=== PATIENT | male | born 1970 | race Caucasian/White ===

== ENCOUNTER 2017-04-17 01:09 | Emergency (ER) | payer OTHER ==
[2017-04-17] MEDS ORDERED: HYDROmorphone INJ* 1 MG/ML CARPUJECT SYRINGE IM ONE ×2 (05:23→06:56)
[2017-04-17] MEDS ORDERED: Ketorolac INJ* 60 MG/2 ML VIAL IM ONE (05:25)
--- NOTE | 2017-04-17 08:01 | ED ---
Kuamr Zamora Rebecca, scribed for Kemal Wagoner MD on 04/17/17 at 0515 . Back Pain - HPI Summary HPI Summary: Pt is a 46 y/o M who presents to ED c/o acute on chronic back pain. Pain has been present for multiple years with frequent flareups. Most recent episode of symptoms began 4 days ago. Pain is in the bilateral lumbar back with radiation to the groin, buttock and bilateral LE. Pain is currently severe, ranked 9/10 and on triage it was 10/10. Sx aggravated by walking, alleviated by nothing. No new trauma. - History of Current Complaint Chief Complaint: EDBackInjuryPain Stated Complaint: BACK PAIN Time Seen by Provider: 04/17/17 05:02 Hx Obtained From: Patient Onset/Duration: Still Present, Worse Since - 4 days ago Onset/Duration: Still Present Back Pain Location: Is Discrete @ - Bilateral lumbar back, Radiates To - Buttock , groin and bilateral LE Severity Currently: Severe Pain Intensity: 10 Pain Scale Used: 0-10 Numeric Aggravating Symptom(s): Walking Alleviating Symptom(s): Nothing Associated Signs And Symptoms: Positive: Negative Related History: Previous Back Injury - Prior pain for multiple years - Allergies/Home Medications Allergies/Adverse Reactions: Allergies Allergy/AdvReac Type Severity Reaction Status Date / Time No Known Allergies Allergy Verified 04/17/17 01:14 PMH/Surg Hx/FS Hx/Imm Hx Endocrine/Hematology History: Denies: Hx Diabetes Cardiovascular History: Reports: Hx Hypercholesterolemia Denies: Hx Congestive Heart Failure, Hx Hypertension, Hx Pacemaker/ICD Respiratory History: Reports: Hx Asthma, Hx Sleep Apnea - Current CPAP user GI History: Reports: Hx Gastroesophageal Reflux Disease History: Reports: Hx Renal Disease - STONES Musculoskeletal History: Reports: Hx Back Problems - increasing back pain 2012 Sensory History: Denies: Hx Hearing Aid Psychiatric History: Denies: Hx Panic Disorder - Surgical History Surgery Procedure, Year, and Place: T&A; Appendectomy; Left Knee Surgery; Left Elbow; Throat (UPPP?); Septoplasty Infectious Disease History: No Infectious Disease History: Denies: Traveled Outside the [place] in Last 30 Days - Family History Known Family History: Positive: Cardiac Disease, Other - Lung CA - Social History Alcohol Use: Rare Substance Use Type: Reports: None, Prescribed Substance Use Comment - Amount & Last Used: percocet 5/325 q4h prn, Hx Tobacco Use: Yes Smoking Status (MU): Former Smoker Review of Systems Negative: Fever Positive: Other - Bilateral lumbar back pain with radiation to the buttock, groin and bilateral LE All Other Systems Reviewed And Are Negative: Yes Physical Exam - Summary Physical Exam Summary: General: well-appearing, no pain distress Skin: warm, color reflects adequate perfusion, dry Head: normal Eyes: EOMI, JACOBY ENT: normal Neck: supple, nontender Respiratory: CTA, breath sounds present Cardiovascular: RRR Abdomen: soft, nontender Bowel: present Musculoskeletal: strength/ROM intact, tender in the lumbar area and across at the level of L4-L5 laterally, good strength and good reflexes bilaterally Neurological: normal, sensory/motor intact, A&O x3 Psychological: affect/mood appropriate Triage Information Reviewed: Yes Vital Signs On Initial Exam: Initial Vitals Temp Pulse Resp BP Pulse Ox 98.2 F 79 16 139/81 98 04/17/17 01:11 04/17/17 01:11 04/17/17 01:11 04/17/17 01:11 04/17/17 01:11 Vital Signs Reviewed: Yes - [place] Coma Scale Coma Scale Total: 15 Diagnostics - Vital Signs Vital Signs Temp Pulse Resp BP Pulse Ox 04/17/17 03:13 98.3 F 69 18 128/66 99 04/17/17 01:14 98.2 F 79 16 139/81 98 04/17/17 01:11 98.2 F 79 16 139/81 98 - Laboratory Lab Statement: Any lab studies that have been ordered have been reviewed, and results considered in the medical decision making process. Back Pain Course/Dx - Course Course Of Treatment: NO NEUROLOGIC DEFICIT. IMPROVED IN ED. - Diagnoses Provider Diagnoses: Low back pain Discharge - Discharge Plan Condition: Stable Disposition: HOME Prescriptions: oxyCODONE/Acetamin 5/325 MG* [Percocet 5/325 TAB*] 1 tab PO Q4H PRN #20 tab MDD 6 PRN Reason: Pain Patient Education Materials: Acute Low Back Pain (ED), Chronic Back Pain (ED), Lower Back Exercises (ED) Referrals: Matthias Singer DO [Primary Care Provider] - Additional Instructions: FOLLOW UP WITH YOUR DOCTOR. RETURN TO THE EMERGENCY DEPARTMENT FOR ANY WORSENING OF YOUR CONDITION; WEAKNESS , NUMBNESS, PAIN, DIFFICULTY CONTROLLING BOWEL OR BLADDER OR QUESTIONS OR CONCERNS. The documentation as recorded by the Kumar couch Rebecca accurately reflects the service I personally performed and the decisions made by me, Kemal Wagoner MD.
[2017-04-17 08:21] VITALS: BP 152/83
== END 2017-04-17 08:19 | disposition home or self-care (01) ==
LOC: ED 01:09
DX: M54.5 Low back pain (principal); Z87.891 Personal history of nicotine dependence
CPT/HCPCS: 96372; 99282; J1170; J1885

== ENCOUNTER 2017-10-01 08:43 | Observation (INO) | payer OTHER ==
[2017-10-01] MEDS ORDERED: NS 0.9% 1000 ML* 1,000 ML IV ONE ×2 (08:55→15:39)
[2017-10-01] MEDS ORDERED: Meclizine TAB* 12.5 MG PO ONE (08:55)
[2017-10-01] MEDS ORDERED: Ondansetron ODT TAB* 4 MG PO ONE (08:55)
[2017-10-01] MEDS ORDERED: LORazepam INJ* 2 MG/ML 1 ML VIAL IV ONE (08:55)
[2017-10-01] MEDS ORDERED: Ondansetron INJ* 2 MG/ML VIAL IV ONE (09:03)
[2017-10-01] MEDS ORDERED: Ondansetron INJ* 2 MG/ML VIAL ONE (09:03)
--- NOTE | 2017-10-01 09:23 | RAD ---
INDICATION: Dizziness COMPARISON: None TECHNIQUE: An AP portable view obtained at 0900 hours is submitted. FINDINGS: Bones/Soft Tissues: There are no acute bony findings. Cardiomediastinal: The cardiomediastinal silhouette is normal. Lungs: There are no infiltrates. Pleura: There are no pleural effusions. Other: None IMPRESSION: NORMAL CHEST
--- NOTE | 2017-10-01 09:56 | RAD ---
Indication: Dizziness for 2 weeks increasing in severity. Now associated nausea. Comparison: No relevant prior exams available on the [facility] [place]. Technique: Noncontrast CT vertex of skull through foramen magnum. Report: The sulci, ventricles, and basal cisterns are normal for age. Variant persistent cavum septum pellucidum. Leavitt matter white matter differentiation is preserved without evidence for edema. No intra or extra axial hemorrhage, mass, or fluid collection detected. Unremarkable visualized orbital contents. Unremarkable calvarium and skull base. Unremarkable scalp. Air-fluid levels at the partially visualized paranasal sinuses with associated punctate gas bubbles on the LEFT consistent with acute sinusitis. There is mucosal thickening at the ethmoid sinuses and LEFT frontoethmoidal recess. Clear mastoid air spaces. IMPRESSION: 1. Negative unenhanced CT of the brain. 2. Stigmata of acute maxillary sinusitis.
[2017-10-01 09:59] LABS: ABS Basophils 0 10^3/ul (0-0.2); ABS Eosinophils 0.1 10^3/ul (0-0.6); ABS Lymphocytes 0.9 10^3/ul (1.0-4.8); ABS Monocytes 0.7 10^3/ul (0-0.8); ABS Neutrophils 7.7 10^3/ul (1.5-7.7); ABS Nucleated RBC 0 10^3/ul; Eosinophil % 0.9 % (0-6); Hematocrit 44 % (42-52); Hemoglobin 15.6 g/dl (14.0-18.0); Lymphocyte % 9.3 % (25-47); Mean Corpuscular HGB Conc 36 g/dl (31-36); Mean Corpuscular Hemoglobin 31 pg (27-31); Mean Corpuscular Volume 86 fL (80-94); Mean Platelet Volume 8 um3 (7.4-10.4); Nucleated Red Blood Cells % 0.1; Platelet Count 163 10^3/ul (150-450); Red Cell Distribution Width 14 % (10.5-15); White Blood Count 9.4 10^3/ul (3.5-10.8)
[2017-10-01 10:18] LABS: EGFR Non-African American 93.3 (>60)
[2017-10-01] MEDS ORDERED: Diazepam TAB(*) 5 MG PO ONE (11:22)
[2017-10-01 14:00] LABS: Urine Appearance Clear; Urine Blood Negative (Negative); Urine Color Yellow; Urine Ketones Negative (Negative); Urine Protein Negative (Negative); Urine Specific Gravity 1.012 (1.010-1.030); Urine Urobilinogen Negative (Negative)
--- NOTE | 2017-10-01 17:44 | RAD ---
Indication: Dizziness. Image sequences: Sagittal and axial T1, axial T2, FLAIR, diffusion and susceptibility weighted images of the brain were obtained. Ventricular structures are midline. No midline shift is noted. The extraction spaces are unremarkable. There is no evidence of intracranial mass or hemorrhage. No other high or low signal lesions are identified. No restriction of diffusion is identified. Mastoid air cells are grossly unremarkable with no abnormal fluid. Mucosal thickening of the maxillary sinus with air-fluid level in the left maxillary sinus as well is mucosal thickening of the ethmoid air cells is noted. IMPRESSION: Air-fluid level in the maxillary sinuses with mucosal thickening of the maxillary sinuses and ethmoid air cells. No restriction of diffusion is noted. No evidence of acute intracranial lesion is noted.
[2017-10-01] MEDS: NS 0.9% 1000 ML* 1,000 ML IV SCH (18:10)
[2017-10-01] MEDS ORDERED: Ondansetron ODT TAB* 4 MG PO PRN (18:50)
[2017-10-01] MEDS ORDERED: Acetaminophen TAB* 325 MG PO PRN (18:50)
[2017-10-01] MEDS: Meclizine TAB* 12.5 MG PO PRN (18:53)
[2017-10-01] MEDS: Heparin VIAL(*) 5000 UNITS/ML VIAL (FIVE THOUSAND) SUBCUT SCH (21:29)
--- NOTE | 2017-10-01 23:03 | HP ---
CC: Dr. Singer * [facility] MEDICINE HISTORY AND PHYSICAL: DATE OF ADMISSION: 10/01/17 PRIMARY CARE PHYSICIAN: Dr. Singer. ATTENDING PHYSICIAN: Melonie Dee MD * (dictation provided by Hillary Jennings NP) CHIEF COMPLAINT: Dizziness. HISTORY OF PRESENT ILLNESS: Mr. Duggan is a 47-year-old male with a past medical history of vertigo, hyperlipidemia, and hypothyroidism who presented to the hospital today with concern for dizziness. Mr. Duggan states that he had a history of BPPV back in 2011 that lasted about a week. Since that time, he has had no further problem with vertigo. About 2 weeks ago, he started to have vertigo again. It has been fairly constant and worsening, culminating and quite severe vertigo today and inability to ambulate. He reports that it is triggered by movement and improves when he lies still. With this, he has had some chest tightness pronounced over on the left side of his chest. This chest pain is not associated with activity. It seems to be constant. Nothing seems to make it better. It is a very mild discomfort that he is not able to fully describe. He also describes some nausea and vomiting. He has had some diarrhea , but this is a chronic problem. The patient also reports recent history of an anterior cervical fusion at C5-C6. He had only just returned to work after that on 08/29/17. 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 He reports therefore some neck pain, which is chronic. In the emergency room, Mr. Duggan was vertiginous throughout his stay. He had labs, which were remarkable only for a very mild lactic acidosis with lactic acid of 2.2. Troponin 0.00. CRP is 1.64. His vitals were stable. He is not febrile. He is not tachycardic. CT brain showed stigmata of acute maxillary sinusitis. Chest x-ray shows no acute abnormality. PAST MEDICAL HISTORY: 1. Hyperlipidemia. 2. Benign positional paroxysmal vertigo. 3. Hypothyroidism. MEDICATIONS: 1. Atorvastatin 20 mg p.o. daily. 2. Levothyroxine 25 mcg p.o. daily. 3. MegaRed. 4. [place]-3. 5. Krill oil 1 cap p.o. daily. 6. Lactobacillus 1 cap p.o. daily. ALLERGIES: No known drug allergies. FAMILY HISTORY: The patient reports that his brother had a heart attack at age 36 and of lung cancer at age 38. He was a heavy smoker. He reports that his mother had heart problems and she is alive. Dad had heart attack and in 1995. He reports that his father's parents both in their 60s of heart attack and that his mother's father had multiple strokes. SOCIAL HISTORY: The patient is a former smoker. He quit in 1997. He smoked for about 17 years. He drinks alcohol occasionally. He reports no drug use. He states that his would be the healthcare proxy. REVIEW OF SYSTEMS: A 14-point review of systems was completed with Mr. Duggan and all those not mentioned above were negative. PHYSICAL EXAMINATION GENERAL: Mr. Duggan is lying in the bed. He appears in no acute distress. His is at the bedside. VITAL SIGNS: Temperature 96.9, pulse rate 76, respiratory rate 14, O2 saturation 99% on room air, blood pressure 148/83. LUNGS: Clear to auscultation bilaterally with no accessory muscle use and good aeration. HEART: S1, S2. No murmur, rub, or gallop and regular. ABDOMEN: Soft, nontender with bowel sounds positive x4. EXTREMITIES: No cyanosis or edema. NEURO: He is alert. He is oriented x3. He reports very mild sensation of vertigo while lying flat. He has no nystagmus noted. He has ataxia with finger -to-nose and with [id number]-lp-flow. He seems to be weak, but there is generalized weakness. There is no facial asymmetry. Tongue is midline. SKIN: Intact. LABORATORY DATA/DIAGNOSTIC STUDIES: WBC 9.4, hemoglobin 15.6, hematocrit 44, platelet count 163. Sodium 140, potassium 4.0, chloride 107, serum bicarbonate 26, BUN 15, creatinine 0.87, glucose 121. Lactic acid 2.2. Magnesium 1.7. CRP 1.64. Urine shows no evidence of infection. Tox screen shows serum alcohol level less than 10. Again, CT brain shows acute maxillary sinusitis. Chest x- ray shows no acute abnormality. ASSESSMENT: Mr. Duggan is a 47-year-old male with a past medical history of benign positional paroxysmal vertigo as well as hypertension and hyperlipidemia who presents today to the hospital with concern for vertigo that has been worsening over the past 2 weeks. Our plans are for observation in the hospital for the followin. Vertigo: Certainly, the patient has a history of benign positional paroxysmal vertigo and this could be a recurrent episode. I note that his CT brain shows concern for sinusitis; however, the patient reports no symptom of acute illness in the past 2 to 3 weeks. It is also possible that his symptoms are related to stroke. CT brain is negative. MRI brain is pending. We will continue treating symptomatically for vertigo with valium, meclizine, and IV fluids. We are checking orthostatic vitals. 2. Hypertension and hyperlipidemia. Plan to continue atorvastatin. 3. Hypothyroidism. Continue levothyroxine. 4. Code status is full code. 5. DVT prophylaxis with heparin subcu. 6. Disposition to medical floor. TIME SPENT: Approximately 60 minutes were spent on the admission of this patient, more than half of the time was spent with the patient at the bedside reviewing the events leading up to this hospitalization, performing the physical examination and reviewing my plan of care. HILLARY JENNINGS NP [id number]/CPS #: [id number] ANNETTE
[2017-10-02] MEDS: Meclizine TAB* 12.5 MG PO PRN (05:24)
[2017-10-02] MEDS: Heparin VIAL(*) 5000 UNITS/ML VIAL (FIVE THOUSAND) SUBCUT SCH ×3 (05:24→20:58)
[2017-10-02] MEDS: NS 0.9% 1000 ML* 1,000 ML IV SCH (05:24)
[2017-10-02] MEDS: Levothyroxine TAB* 25 MCG TAB PO SCH (05:24)
[2017-10-02] MEDS: Diazepam TAB(*) 5 MG PO PRN (08:11)
[2017-10-02] MEDS: Atorvastatin* 20 MG TAB PO SCH (08:11)
[2017-10-02] MEDS ORDERED: diPHENhydraMINE PO* 25 MG PO PRN (08:19)
[2017-10-02] MEDS ORDERED: Scopolamine 1.5 mg* PATCH TRANSDERM SCH (09:00)
--- NOTE | 2017-10-02 09:52 | PN ---
Subjective Date of Service: 10/02/17 Interval History: Mr. Duggan reports that he continues to feel very dizzy today. He reports that the dizziness is worsened with any movement but improves after about a minute if he lies still. He denies other complaint. Objective Active Medications: Acetaminophen (Tylenol Tab*) 650 mg PO Q4H PRN Atorvastatin Calcium (Lipitor*) 20 mg PO DAILY ÓSCAR Diazepam (Valium Tab(*)) 2.5 mg PO Q8H PRN Diphenhydramine HCl (Benadryl Po*) 25 mg PO Q6H PRN Heparin Sodium (Porcine) (Heparin Vial(*)) 5,000 units SUBCUT Q8HR ÓSCAR Sodium Chloride (Ns 0.9% 1000 Ml*) 1,000 mls @ 100 mls/hr IV PER RATE ÓSCAR Levothyroxine Sodium (Synthroid Tab*) 25 mcg PO DAILY@0600 ÓSCAR Meclizine HCl (Antivert Tab*) 25 mg PO Q8HR PRN Ondansetron HCl (Zofran Odt Tab*) 4 mg PO Q6H PRN Scopolamine (Transderm-Scop 1.5 Mg Patch*) 1 patch TRANSDERM Q72H [facility] Vital Signs: Temp Pulse Resp BP Pulse Ox 97.5 F 66 16 125/69 96 10/02/17 07:16 10/02/17 07:16 10/02/17 08:11 10/02/17 07:16 10/02/17 07:16 Oxygen Devices in Use Now: None Appearance: Male lying in bed in NAD Eyes: No Scleral Icterus Ears/Nose/Mouth/Throat: Mucous Membranes Moist Neck: Trachea Midline Respiratory: Symmetrical Chest Expansion and Respiratory Effort, Clear to Auscultation Cardiovascular: NL Sounds; No Murmurs; No JVD, No Edema Abdominal: NL Sounds; No Tenderness; No Distention Lymphatic: No Cervical Adenopathy Extremities: No Edema Skin: No Rash or Ulcers Neurological: Alert and Oriented x 3, NL Muscle Strength and Tone Nutrition: Taking PO's Result Diagrams: 10/01/17 09:30 10/01/17 09:30 Assess/Plan/Problems-Billing Assessment: Mr. Duggan is a 47 yo M with a PMH of vertigo who was admitted on 10/01/17 with vertigo. - Patient Problems (1) Vertigo Comment: - No improvement overnight. - MRI negative. Appreciate neurology consult. Positive torsional nystagmus to the right with [place]-Hallpike maneuver, Oscar performed. Patient to remain upright until 2100. - Continue meclizine, valium, scopolamine. (2) Hypothyroidism Comment: - Continue levothyroxine. (3) Hyperlipidemia Comment: - Continue atorvastatin. (4) DVT prophylaxis Comment: - Heparin SQ. (5) Full code status Comment: Status and Disposition: Switch to inpatient with need for additional night in the hospital. Anticipate discharge to home when medically stable.
--- NOTE | 2017-10-02 16:13 | ED ---
Renan Zamora Angela, scribed for Jose Elias Daniels MD on 10/01/17 at 0858 . Dizziness - HPI Summary HPI Summary: This pt is a 47 y/o male presenting to [facility] c/o progressively worsening dizziness x2 weeks. Pt describes room spinning dizziness. He states nausea and vomiting. His dizziness is aggravated with standing up and ambulating. His dizziness is mildly alleviated with closing his eyes. Pt additionally notes headache and mild chest pain. He denies weakness in LE or UE, palpitations. Denies recent cold symptoms, sinus infections. Pt has had vertigo in the past but states it was never this bad. - History Of Current Complaint Chief Complaint: EDDizziness Stated Complaint: DIZZINESS,VOMITING Hx Obtained From: Patient Timing: Weeks Severity Currently: Moderate Character: Room Spinning, Dizzy Aggravating Factor(s): Other - standing up and ambulating Alleviating Factor(s): Closing Eyes Associated Signs And Symptoms: Positive: Nausea, Vomiting, Chest Pain, Other: - chest pain. Negative: Palpitations - Allergies/Home Medications Allergies/Adverse Reactions: Allergies Allergy/AdvReac Type Severity Reaction Status Date / Time No Known Allergies Allergy Verified 04/17/17 01:14 Home Medications: Home Medications Atorvastatin* [Lipitor*] 20 mg PO DAILY 10/01/17 [History Confirmed 10/01/17] Krill/Om-3/Dha/Epa/Phospho/Ast [Megared [place]-3 Krill Oil Sfgl] 1 cap PO DAILY 10/01/17 [History Confirmed 10/01/17] Lactobacillus Acidophilus [Probiotic] 1 cap PO DAILY 10/01/17 [History Confirmed 10/01/17] Levothyroxine TAB* [Synthroid TAB*] 25 mcg PO DAILY 10/01/17 [History Confirmed 10/01/17] PMH/Surg Hx/FS Hx/Imm Hx Endocrine/Hematology History: Denies: Hx Diabetes Cardiovascular History: Reports: Hx Hypercholesterolemia Denies: Hx Congestive Heart Failure, Hx Hypertension, Hx Pacemaker/ICD Respiratory History: Reports: Hx Asthma, Hx Sleep Apnea - Current CPAP user GI History: Reports: Hx Gastroesophageal Reflux Disease History: Reports: Hx Renal Disease - STONES Musculoskeletal History: Reports: Hx Back Problems - increasing back pain 2012 Denies: Hx Scoliosis Sensory History: Denies: Hx Hearing Aid Neurological History: Denies: Hx Headaches Psychiatric History: Denies: Hx Panic Disorder - Surgical History Surgery Procedure, Year, and Place: T&A; Appendectomy; Left Knee Surgery; Left Elbow; Throat (UPPP?); Septoplasty Infectious Disease History: No Infectious Disease History: Denies: Traveled Outside the [place] in Last 30 Days - Family History Known Family History: Positive: Cardiac Disease, Other - Lung CA - Social History Alcohol Use: Rare Substance Use Type: Reports: None, Prescribed Substance Use Comment - Amount & Last Used: percocet 5/325 q4h prn, Hx Tobacco Use: Yes Smoking Status (MU): Former Smoker Review of Systems Negative: Fever, Chills Positive: Chest Pain. Negative: Palpitations Positive: Vomiting, Nausea Neurological: Other - POS: dizziness Positive: Headache. Negative: Weakness All Other Systems Reviewed And Are Negative: Yes Physical Exam - Summary Physical Exam Summary: VITAL SIGNS: Reviewed. GENERAL: Patient is a well-developed and nourished male who is lying comfortable in the stretcher. Patient is not in any acute respiratory distress. HEAD AND FACE: No signs of trauma. No ecchymosis, hematomas or skull depressions. No sinus tenderness. EYES: PERRLA, EOMI x 2, No injected conjunctiva. No nystagmus. EARS: Hearing grossly intact. Ear canals and tympanic membranes are within normal limits. MOUTH: Oropharynx within normal limits. NECK: Supple, trachea is midline, no adenopathy, no JVD, no carotid bruit, no c- spine tenderness, neck with full ROM. CHEST: Symmetric, no tenderness at palpation LUNGS: Clear to auscultation bilaterally. No wheezing or crackles. CVS: Regular rate and rhythm, S1 and S2 present, no murmurs or gallops appreciated. ABDOMEN: Soft, non-tender. No signs of distention. No rebound no guarding, and no masses palpated. Bowel sounds are normal. EXTREMITIES: FROM in all major joints, no edema, no cyanosis or clubbing. NEURO: Alert and oriented x 3. No acute neurological deficits. Speech is normal and follows commands. SKIN: Dry and warm GCS: 15 Triage Information Reviewed: Yes Vital Signs On Initial Exam: Initial Vitals Temp Pulse Resp BP Pulse Ox 96.9 F 68 18 140/66 100 10/01/17 08:47 10/01/17 08:47 03/05/18 08:47 10/01/17 08:47 10/01/17 08:47 Vital Signs Reviewed: Yes - [place] Coma Scale Best Eye Response: 4 - Spontaneous Best Motor Response: 6 - Obeys Commands Best Verbal Response: 5 - Oriented Coma Scale Total: 15 Diagnostics - Vital Signs Vital Signs Temp Pulse Resp BP Pulse Ox 10/01/17 08:50 73 100 10/01/17 08:47 96.9 F 68 18 140/66 100 - Laboratory Result Diagrams: 10/01/17 09:30 10/01/17 09:30 Lab Statement: Any lab studies that have been ordered have been reviewed, and results considered in the medical decision making process. - Radiology Chest XR Xray Interpretation: No Acute Changes - IMPRESSION: Normal chest. Dr. Daniels has reviewed this radiology report. Radiology Interpretation Completed By: Radiologist - CT Brain CT CT Interpretation: Positive (See Comments) - IMPRESSION: 1. Negative unenhanced CT of the brain. 2. Stigmata of acute maxillary sinusitis. Dr. Daniels has reviewed this radiology report. CT Interpretation Completed By: Radiologist - EKG 08:51 Cardiac Rate: NL EKG Rhythm: Sinus Rhythm - at 69 bpm EKG Interpretation: No ST elevation. Normal axis. National Institutes Of Health - NIH Scale Level of Consciousness: Alert/Keenly Responsive Ask Patient the Month and His/Her Age: Both Correct Ask Pt to Open/Close Eyes and Certification And Selection Specialist/Release Non-Paretic Hand: Both Correctly Best Gaze (Only Horizontal Eye Movement): Normal Visual Field Testing: No Visual Loss Facial Paresis-Pt to Smile & Close Eyes or Grimace Symmetry: Normal/Symmetrical Motor Function - Right Arm: No Drift-Holds 10 Seconds Motor Function - Left Arm: No Drift-Holds 10 Seconds Motor Function - Right Leg: No Drift-Holds 10 Seconds Motor Function - Left Leg: No Drift-Holds 10 Seconds Limb Ataxia-Must be out of Proportion to Weakness Present: Absent Sensory (Use Pinprick to Test Arms/Legs/Trunk/Face): Normal Best Language (Describe Picture, Name Items): No Aphasia Dysarthria (Read Several Words): Normal Extinction and Inattention: No Abnormality Total Score: 0 Dizzy Course/Dx - Course Assessment/Plan: This pt is a 47 y/o male presenting to [facility] c/o progressively worsening dizziness x2 weeks. Pt describes room spinning dizziness. He states nausea and vomiting. His dizziness is aggravated with standing up and ambulating. His dizziness is mildly alleviated with closing his eyes. Pt additionally notes headache and mild chest pain. He denies weakness in LE or UE , palpitations. Denies recent cold symptoms, sinus infections. Pt has had vertigo in the past but states it was never this bad. Test results without any significant abnormalities except for glucose of 121, lactic acid of 2.2, magnesium of 1.7. Urinalysis is negative for UTI. Alcohol level is less than 10. Chest XR shows normal chest. Brain CT shows 1. Negative unenhanced CT of the brain. 2. Stigmata of acute maxillary sinusitis. In the ED course, the pt was given IV fluids, Meclizine, Ativan, and Valium and the pts symptoms have not significantly improved. At this point I discussed the test results and findings with Dr. Dee, hospitalist, who has agreed to admit the pt. I will order an MRI of the brain to rule out a posterior brain infarct; however the neurological exam is still with a NIH score of 0. MRI will be done at 08:00 PM and the pts MRI will be followed up by Dr. Dee. Pt is hemodynamically stable , alert and oriented x3. - Diagnoses Provider Diagnoses: Intractable vertigo - Provider Notifications Discussed Care Of Patient With: Melonie Dee Time Discussed With Above Provider: 12:56 Instructed by Provider To: Other - I discussed pt care with Dr. Parra, hospitalist , who has agreed to admit the pt. Discharge - Discharge Plan Condition: Stable Disposition: ADMITTED TO [facility] The documentation as recorded by the Renan couch Angela accurately reflects the service I personally performed and the decisions made by me, Jose Elias Daniels MD.
--- NOTE | 2017-10-02 22:42 | CONS ---
NEUROLOGY CONSULTATION: DATE OF CONSULT: 10/02/17 LOCATION: He is an inpatient in room 441. REFERRING PROVIDER: Roopa Jennings NP PRIMARY CARE PHYSICIAN: Dr. Singer. CHIEF COMPLAINT: Vertigo. HISTORY OF PRESENT ILLNESS: Og Duggan is a 47-year-old man who woke up one day about a week and a half ago with dizziness. After about a minute, it resolved, but he found that when he moved, it would set it off again. It got worse a couple of days later and he had to call in sick to work. With specific questioning, he realized that it would occur particularly if he rolled over on his right side in bed. It was also precipitated by sitting back up again, however. It got particularly severe the day of admission, was accompanied by nausea and vomiting, and so he presented to the emergency room. Since that time , he has felt a bit better as he had been treated with various medications. He has not had any recent head injuries. He has not noticed any change in hearing recently, tinnitus, or fullness in the ears. He has not had any infectious illnesses lately. He has not noticed any double vision, extremity or facial numbness, or new weakness. He had an episode in 2011 where he had a week of movement-induced vertigo. He saw ENT in [place] and had some repositioning maneuvers done and it resolved sometime soon after that. He says that this episode is much worse. PAST MEDICAL HISTORY: Notable for cervical disk fusion in this past May, hyperlipidemia, chronic back pain, hypothyroidism. MEDICATIONS: At the time of admission consist of: 1. Atorvastatin 20 mg p.o. daily. 2. Levothyroxine 25 mcg p.o. daily. 3. Fish oil. 4. Lactobacillus. ALLERGIES: He does not have any drug allergies. REVIEW OF SYSTEMS: Negative for recent infections or fevers. No recent falls. He did bump his head lightly about a week before the vertigo started, but he did not think much of it. He had chest pain with one of the episodes of vertigo , but not routinely. He has had chronic back pain and had physical therapy for his back as recently as last year for it. He has had a uvuloplasty. He has sleep apnea and has a CPAP machine. PHYSICAL EXAM: He is overweight. He looks uncomfortable. He is afebrile. Blood pressure 126/83 most recently without orthostatic change, heart rate running in the 60s and regular, respiratory rate about 20, and oxygen saturation is 97% on room air. Skin is warm and moist. Neck: Range of motion is limited. Heart is in a regular rhythm without murmurs heard. There are no cervical bruits anteriorly or posteriorly. Tympanic membranes are clear bilaterally. Neurological Exam: Pupils react equally from 3 to about 2 mm. Eye movements are full. Funduscopic exam is unremarkable. Facial musculature is symmetric. Facial sensation to pin, light touch, and temperature is normal. Palate and tongue are normal other than his uvula is surgically missing. Speech is clear. Hearing is intact bilaterally to tuning fork and Diallo's test is midline. Motor exam reveals normal tone and strength in the limbs proximally and distally. Sensation in the limbs is intact to pin and light touch. [id number] maneuver is slow and clumsy, but not dysmetric. Past pointing maneuver is negative on the left. Finger taps are normal symmetrically. Reflexes are intact and symmetric in upper and lower extremities. Plantar responses are flexor on the right and equivocal on the left. Amanda Hallpike maneuver was carried out and produced rotary nystagmus with head tilt to the right. I did not extend his neck because of his neck fusion. It lasted about 40 seconds to less than a minute and resolved. He experienced vertigo with it. He was rolled into a left decubitus position with head tilted to the left and an Oscar maneuver was finished bringing him to vertical. He was seated in his bed at that point and advised to remain vertical. Prior to the Amanda Hallpike and Oscar maneuvers, he was able to walk very slowly and cautiously with a wide-based gait to the bathroom and back. Mentation is clear. He is a pretty good historian. Attention, concentration, and fund of knowledge seem adequate. DIAGNOSTIC STUDIES/LAB DATA: Laboratory data includes an MRI of the brain, which I reviewed. It is a normal MRI of the brain. CT of the brain likewise is normal. Chemistries and CBC are unremarkable. Lactate was a little bit elevated at 2.2 yesterday, but came down to 1.4. TSH yesterday normal at 1.26. 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 Hopefully, Oscar maneuver will work and he will feel much better tomorrow. If it does not, I would recommend he be discharged for outpatient vestibular therapy. In the meanwhile, it could be symptomatically treated with antiemetics and anti-vertiginous medicines such as diazepam or preferably meclizine for longer term outpatient treatment if needed. Ultimately, however, particle repositioning is the main stay of therapy. [id number]/CPS #: [id number] MTDD
[2017-10-03] MEDS: Heparin VIAL(*) 5000 UNITS/ML VIAL (FIVE THOUSAND) SUBCUT SCH (06:25)
[2017-10-03] MEDS: Levothyroxine TAB* 25 MCG TAB PO SCH (06:26)
[2017-10-03] MEDS: Atorvastatin* 20 MG TAB PO SCH (07:54)
--- NOTE | 2017-10-03 08:41 | PN ---
Subjective Date of Service: 10/03/17 Interval History: Overnight, he has felt better. He states that his dizziness is better this morning. He had no positional dizziness this morning when I saw him. He denies any nausea/vomiting, headache, hearing or vision changes. He states that he slept well. MRI Brain: Films reviewed. No acute issues, no evidence of stroke. Sinusitis noted. Objective Active Medications: Acetaminophen (Tylenol Tab*) 650 mg PO Q4H PRN PRN Reason: FEVER/PAIN Last Admin: 10/01/17 19:33 Dose: 650 mg Atorvastatin Calcium (Lipitor*) 20 mg PO DAILY [facility] Last Admin: 10/03/17 07:54 Dose: 20 mg Diazepam (Valium Tab(*)) 2.5 mg PO Q8H PRN PRN Reason: dizziness Last Admin: 10/02/17 08:11 Dose: 2.5 mg Diphenhydramine HCl (Benadryl Po*) 25 mg PO Q6H PRN PRN Reason: dizziness Heparin Sodium (Porcine) (Heparin Vial(*)) 5,000 units SUBCUT Q8HR [facility] Last Admin: 10/03/17 06:25 Dose: 5,000 units Levothyroxine Sodium (Synthroid Tab*) 25 mcg PO DAILY@0600 [facility] Last Admin: 10/03/17 06:26 Dose: Not Given Meclizine HCl (Antivert Tab*) 25 mg PO Q8HR PRN PRN Reason: dizziness Last Admin: 10/02/17 05:24 Dose: 25 mg Ondansetron HCl (Zofran Odt Tab*) 4 mg PO Q6H PRN PRN Reason: NAUSEA Last Admin: 10/01/17 19:33 Dose: 4 mg Scopolamine (Transderm-Scop 1.5 Mg Patch*) 1 patch TRANSDERM Q72H [facility] Last Admin: 10/02/17 09:08 Dose: 1 patch Vital Signs 10/02/17 10/02/17 10/02/17 14:37 15:09 19:34 Temperature 97.9 F Pulse Rate 73 Respiratory 16 14 16 Rate Blood Pressure 144/69 (mmHg) O2 Sat by Pulse 98 Oximetry 10/02/17 23:47 Temperature 97.9 F Pulse Rate 53 Respiratory 20 Rate Blood Pressure 138/66 (mmHg) O2 Sat by Pulse 97 Oximetry Oxygen Devices in Use Now: None Neurology Exam: General: Awake, Alert, Oriented x3 HEENT: Normocephalic/atraumatic, sclera anicteric, mucous membranes moist Neck: Supple Chest: Clear to auscultation bilaterally Cardiovascular: Regular rate and rhythm without murmurs, rubs, gallops Abdomen: Soft, non-tender/non-distended Extremities: No clubbing, cyanosis, or edema Neurological Findings: Awake, Alert, Oriented x3 Speech: fluent without dysarthria, repetition intact Cranial Nerve: PEERL, EOM intact, VFF, no nystagmus with lateral gaze to the left or right or with head movements, face symmetric bilaterally, facial sensation intact, hearing intact to finger rub bilaterally, palate elevates symmetrically, tongue midline Motor: 5/5 throughout, proximal and distal extremities x4 tone/bulk normal Sensation: intact to LT/PP bilaterally upper and lower extremities Deep Tendon Reflex: 1+ symmetric in the upper/lower extremities, Babinski - Equivocal Finger to nose, rapid alternating movements intact without tremor Result Diagrams: 10/01/17 09:30 10/01/17 09:30 Assessment/Plan Assessment: Overall, he is better status post Eply. Continue to suspect BPPV. MRI showed no evidence of stroke. I think, if he remains stable this morning, he can be discharged home. I would send him to vestibular rehab and he can use meclizine prn for any continued dizziness. I will sign off for now but remain available for any new concerns.
--- NOTE | 2017-10-03 08:49 | PN ---
Subjective Date of Service: 10/03/17 Interval History: Mr. Duggan reports feeling better although he did become vertiginous after ambulating to the bathroom. He denies any other acute complaint. Objective Active Medications: Acetaminophen (Tylenol Tab*) 650 mg PO Q4H PRN Atorvastatin Calcium (Lipitor*) 20 mg PO DAILY [facility] Diazepam (Valium Tab(*)) 2.5 mg PO Q8H PRN Diphenhydramine HCl (Benadryl Po*) 25 mg PO Q6H PRN Heparin Sodium (Porcine) (Heparin Vial(*)) 5,000 units SUBCUT Q8HR [facility] Levothyroxine Sodium (Synthroid Tab*) 25 mcg PO DAILY@0600 [facility] Meclizine HCl (Antivert Tab*) 25 mg PO Q8HR PRN Ondansetron HCl (Zofran Odt Tab*) 4 mg PO Q6H PRN Scopolamine (Transderm-Scop 1.5 Mg Patch*) 1 patch TRANSDERM Q72H [facility] Vital Signs: Temp Pulse Resp BP Pulse Ox 97.9 F 53 20 138/66 97 10/02/17 23:47 10/02/17 23:47 10/02/17 23:47 10/02/17 23:47 10/02/17 23:47 Oxygen Devices in Use Now: None Appearance: Male lying in bed in NAD Eyes: No Scleral Icterus Ears/Nose/Mouth/Throat: Mucous Membranes Moist Neck: Trachea Midline Respiratory: Symmetrical Chest Expansion and Respiratory Effort, Clear to Auscultation Cardiovascular: NL Sounds; No Murmurs; No JVD, No Edema Abdominal: NL Sounds; No Tenderness; No Distention Lymphatic: No Cervical Adenopathy Extremities: No Edema Skin: No Rash or Ulcers Neurological: Alert and Oriented x 3, NL Muscle Strength and Tone Nutrition: Taking PO's Result Diagrams: 10/01/17 09:30 10/01/17 09:30 Assess/Plan/Problems-Billing Assessment: Overall, he is better status post Eply. Continue to suspect BPPV. MRI showed no evidence of stroke. I think, if he remains stable this morning, he can be discharged home. I would send him to vestibular rehab and he can use meclizine prn for any continued dizziness. I will sign off for now but remain available for any new concerns. - Patient Problems (1) Vertigo Comment: - Improving. - MRI negative. Appreciate neurology consult. Positive torsional nystagmus to the right with [place]-Hallpike maneuver, Oscar performed. - Continue meclizine, valium, scopolamine prn. (2) Hypothyroidism Comment: - Continue levothyroxine. (3) Hyperlipidemia Comment: - Continue atorvastatin. (4) DVT prophylaxis Comment: - Heparin SQ. (5) Full code status Comment: Status and Disposition: Discharge to home.
[2017-10-03] MEDS: Meclizine TAB* 12.5 MG PO PRN (09:25)
[2017-10-03] MEDS: Diazepam TAB(*) 5 MG PO PRN (09:26)
[2017-10-03 11:25] VITALS: BP 138/74
--- NOTE | 2017-10-03 23:00 | DS ---
CC: Dr. Singer* [facility] MEDICINE DISCHARGE SUMMARY: DATE OF ADMISSION: 10/01/17 DATE OF DISCHARGE: 10/03/17 PRIMARY CARE PROVIDER: Dr. Singer. ATTENDING PHYSICIAN: Dr. Glenroy Lozano *(dictation provided by Roopa Jennings NP ). PRIMARY DIAGNOSIS: Benign positional paroxysmal vertigo. SECONDARY DIAGNOSES: 1. Hyperlipidemia. 2. Hypothyroidism. 3. Benign positional paroxysmal vertigo. MEDICATIONS: At the time of discharge are: 1. Atorvastatin 20 mg p.o. daily. 2. Levothyroxine 25 mcg p.o. daily. 3. MegaRed Hunter-3 Krill oil 1 cap p.o. daily. 4. Lactobacillus 1 cap p.o. daily. 5. Scopolamine patch q.72 hours. 6. Ondansetron 4 mg p.o. q.6 hours p.r.n. nausea. 7. Meclizine 25 mg p.o. q.8 hours p.r.n. dizziness. 8. Diazepam 2.5 mg p.o. q.8 hours p.r.n. dizziness. HOSPITAL COURSE: Mr. Duggan is a 47-year-old male with a past medical history of BPPV, who presented to the hospital on 10/01/17 with concern for vertigo. Please see the dictated H and P from myself for complete details. In brief, the patient reported about 2 weeks of vertigo culminating in very severe symptoms on the day prior to admission. He was unable to ambulate and therefore presented to the emergency room for evaluation. Mr. Duggan had a CT of the brain, which showed no acute abnormality. Out of concern for possible cerebellar stroke, the patient did go on for a brain MRI, which showed no acute infarct or abnormality other than maxillary sinusitis. Mr. Duggan continued to feel very dizzy the next morning. He was seen in consultation by Dr. Marie from neurological services. Dr. Marie performed a [place]-Hallpike maneuver, which provoked torsional nystagmus consistent with benign paroxysmal positional vertigo. He went on to perform an Oscar maneuver. The patient has remained upright overnight for several hours and states that this morning, he is feeling a little bit better though he did have continued vertigo on ambulating to the bathroom. Mr. Duggan's symptoms and workup was consistent with BPPV. Plans are for him to be discharged to home to follow up with his primary care physician and with the vestibular therapist as needed for additional Oscar maneuvers if his vertigo does not resolve spontaneously. DISPOSITION: Home. DIET: Regular. ACTIVITY: As tolerated. FOLLOWUP PLANS: 1. Please followup with Dr. Singer regarding this acute hospitalization. 2. Please follow up with Vestibular Therapy as needed for additional Oscar maneuvers. TIME SPENT: Approximately 60 minutes was spent on the discharge of this patient , more than half the time spent with the patient at the bedside reviewing the events leading up to and during this hospitalization, performing the physical examination, and reviewing my plan of care. ROOPA JENNINGS NP [id number]/[facility] #: [id number] ANNETTE
== END 2017-10-03 13:30 | disposition home or self-care (01) ==
LOC: ED 08:43 → MEDTELE 15:13 → OBSVTOIN 15:13 → INTOOBSV 15:13 → OBSVTOIN 10-02 11:38 → INTOOBSV 10-02 11:38
PROVIDERS: ADMIT Internal Medicine; ATTEND Internal Medicine
DX: H81.10 Benign paroxysmal vertigo, unspecified ear (principal); E78.5 Hyperlipidemia, unspecified; E03.9 Hypothyroidism, unspecified; R11.2 Nausea with vomiting, unspecified; R07.9 Chest pain, unspecified; Z87.891 Personal history of nicotine dependence; R51 Headache; I10 Essential (primary) hypertension
CPT/HCPCS: 36415; 70450; 70551; 71045; 80053; 80320; 81003; 82550; 83605; 83735; 83880; 84443; 84484; 85025; 86140; 93005; 99284; A9270-GY; G0378; G0480; J1644; J2060; J2405

== ENCOUNTER 2018-02-08 17:44 | Emergency (ER) | payer OTHER ==
[2018-02-08 19:49] LABS: ABS Basophils 0 10^3/ul (0-0.2); ABS Eosinophils 0.2 10^3/ul (0-0.6); ABS Lymphocytes 1.1 10^3/ul (1.0-4.8); ABS Monocytes 0.7 10^3/ul (0-0.8); ABS Neutrophils 4.7 10^3/ul (1.5-7.7); ABS Nucleated RBC 0 10^3/ul; Eosinophil % 2.6 % (0-6); Hematocrit 41 % (42-52); Hemoglobin 14.7 g/dl (14.0-18.0); Lymphocyte % 16.9 % (25-47); Mean Corpuscular HGB Conc 36 g/dl (31-36); Mean Corpuscular Hemoglobin 31 pg (27-31); Mean Corpuscular Volume 87 fL (80-94); Mean Platelet Volume 7.5 um3 (7.4-10.4); Nucleated Red Blood Cells % 0; Platelet Count 176 10^3/ul (150-450); Red Blood Count 4.72 10^6/ul (4.00-5.40); Red Cell Distribution Width 14 % (10.5-15); White Blood Count 6.7 10^3/ul (3.5-10.8)
[2018-02-08 20:09] LABS: EGFR Non-African American 75.9 (>60)
--- NOTE | 2018-02-08 20:14 | RAD ---
INDICATION: Left flank abdominal pain radiating to the left testicle. COMPARISON: Comparison is made with a prior CT of the abdomen and pelvis from October 26, 2015. TECHNIQUE: A CT scan of the abdomen and pelvis was performed without intravenous and without oral contrast. Contiguous axial sections were obtained from the lung bases through the symphysis pubis. Images were reconstructed in the coronal and sagittal planes. FINDINGS: The lung bases are clear. No pleural effusion is present. The liver and spleen are normal in size without significant focal abnormality on this noncontrast study. The gallbladder appears contracted. No calcified gallstones are seen. The pancreas appears to be within normal limits. The adrenal glands and kidneys are normal in size. There are several small bilateral renal calculi measuring between 1 and 4 mm in size. In addition, there is a duplicated left collecting system, the ureters likely joint together distally. There is a calculus in the upper pole ureter measuring 5 x 3 mm in size causing mild hydronephrosis. No bladder calculi are seen. The aorta is normal in caliber without significant calcific plaque. No significant enlarged retroperitoneal lymph nodes are seen. The stomach, small and large bowel appear nondistended. The patient is status post appendectomy by history. There are few scattered diverticuli within the colon. There is no evidence for diverticulitis or colitis. There is a small periumbilical hernia containing fat. No free intraperitoneal air or fluid is seen. No significant focal osseous abnormality is seen. IMPRESSION: 1. 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 THE URETERS LIKELY JOIN DISTALLY ALTHOUGH THIS IS NOT DEFINITE. THERE IS A 5 MM CALCULUS IN THE URETER DRAINING THE UPPER POLE MOIETY CAUSING MILD HYDRONEPHROSIS. 2. THERE ARE ARE SEVERAL ADDITIONAL SMALL BILATERAL RENAL CALCULI.
[2018-02-08] MEDS ORDERED: Ondansetron INJ* 2 MG/ML VIAL IV ONE (23:37)
[2018-02-08] MEDS ORDERED: Ketorolac INJ* 30 MG/ML 1 ML VIAL IV PUSH ONE (23:37)
--- NOTE | 2018-02-08 23:40 | ED ---
Abdominal Pain/Male - HPI Summary HPI Summary: This patient is a 47 year old M presenting to [facility] with a chief complaint of L flank pain radiating to abd and testicles that began 5 days ago. The patient rates the pain 6/10 in severity. Symptoms aggravated by nothing. Symptoms alleviated by nothing. Patient reports diarrhea and chills. Patient denies vomiting and fever. Pt reports a hx of kidney stones. - History of Current Complaint Chief Complaint: EDFlankPain Stated Complaint: BACK/ABD/TESTICULAR PAIN Time Seen by Provider: 02/08/18 19:26 Hx Obtained From: Patient Onset/Duration: Sudden Onset, Lasting Days, Still Present Timing: Constant Severity Initially: Moderate Severity Currently: Moderate Pain Intensity: 7 Pain Scale Used: 0-10 Numeric Location: Flank Radiates: Yes Radiates to: Other - Abdomen and testicles Aggravating Factor(s): Nothing Alleviating Factor(s): Nothing Associated Signs And Symptoms: Positive: Diarrhea. Negative: Fever, Vomiting - Allergies/Home Medications Allergies/Adverse Reactions: Allergies Allergy/AdvReac Type Severity Reaction Status Date / Time No Known Allergies Allergy Verified 04/17/17 01:14 PMH/Surg Hx/FS Hx/Imm Hx Previously Healthy: No Endocrine/Hematology History: Denies: Hx Diabetes Cardiovascular History: Reports: Hx Hypercholesterolemia Denies: Hx Congestive Heart Failure, Hx Hypertension, Hx Pacemaker/ICD Respiratory History: Reports: Hx Asthma, Hx Sleep Apnea - Current CPAP user GI History: Reports: Hx Gastroesophageal Reflux Disease History: Reports: Hx Kidney Stones, Hx Renal Disease - STONES Musculoskeletal History: Reports: Hx Back Problems - increasing back pain 2012 Denies: Hx Scoliosis Sensory History: Reports: Hx Contacts or Glasses Denies: Hx Hearing Aid Opthamlomology History: Reports: Hx Contacts or Glasses Neurological History: Reports: Other Neuro Impairments/Disorders - dizziness noted before Denies: Hx Headaches Psychiatric History: Denies: Hx Panic Disorder - Surgical History Surgery Procedure, Year, and Place: T&A; Appendectomy; Left Knee Surgery; Left Elbow; Throat (UPPP?); Septoplasty Infectious Disease History: No Infectious Disease History: Denies: Traveled Outside the [place] in Last 30 Days - Family History Known Family History: Positive: Cardiac Disease, Other - Lung CA - Social History Occupation: Employed Full-time Lives: With Family Alcohol Use: Rare Hx Substance Use: Yes Substance Use Type: Reports: Prescribed Substance Use Comment - Amount & Last Used: percocet 5/325 q4h prn, Hx Tobacco Use: Yes Smoking Status (MU): Former Smoker Review of Systems Positive: Chills. Negative: Fever Positive: Diarrhea, Other - Positive flank pain. Negative: Vomiting All Other Systems Reviewed And Are Negative: Yes Physical Exam - Summary Physical Exam Summary: Appearance: Well-appearing, Well-nourished, lying in bed comfortably Skin: Warm, dry, no obvious rash Eyes: sclera anicteric, no conjunctival pallor ENT: mucous membranes moist, pharynx appears normal Neck: Supple, nontender Respiratory: Clear to auscultation, no signs of respiratory distress Cardiovascular: Normal S1, S2. No murmurs. Normal distal pulses in tibial and radial bilaterally. Abdomen: Soft, nontender, normal active bowel sounds present Musculoskeletal: Normal, Strength/ROM Intact Neurological: A&Ox3, awake and alert, mentation is normal, speech is fluent and appropriate Psychiatric: affect is normal, does not appear anxious or depressed Triage Information Reviewed: Yes Vital Signs On Initial Exam: Initial Vitals Temp Pulse Resp BP Pulse Ox 98.8 F 66 16 165/83 97 02/08/18 17:47 02/08/18 17:47 02/08/18 17:47 02/08/18 17:47 02/08/18 17:47 Vital Signs Reviewed: Yes Diagnostics - Vital Signs Vital Signs Temp Pulse Resp BP Pulse Ox 02/08/18 23:09 99 F 71 16 134/62 99 02/08/18 20:01 98.7 F 65 16 127/89 99 02/08/18 17:47 98.8 F 66 16 165/83 97 - Laboratory Lab Results: Lab Results 02/08/18 02/08/18 02/08/18 Range/Units 19:35 19:35 19:35 WBC 6.7 (3.5-10.8) 10^3/ul RBC 4.72 (4.00-5.40) 10^6/ul Hgb 14.7 (14.0-18.0) g/dl Hct 41 L (42-52) % MCV 87 (80-94) fL MCH 31 (27-31) pg MCHC 36 (31-36) g/dl RDW 14 (10.5-15) % Plt Count 176 (150-450) 10^3/ul MPV 7.5 (7.4-10.4) um3 Neut % (Auto) 69.9 (38-83) % Lymph % (Auto) 16.9 L (25-47) % Lane % (Auto) 10.0 H (0-7) % Eos % (Auto) 2.6 (0-6) % Baso % (Auto) 0.6 (0-2) % Absolute Neuts (auto) 4.7 (1.5-7.7) 10^3/ul Absolute Lymphs (auto) 1.1 (1.0-4.8) 10^3/ul Absolute Monos (auto) 0.7 (0-0.8) 10^3/ul Absolute Eos (auto) 0.2 (0-0.6) 10^3/ul Absolute Basos (auto) 0 (0-0.2) 10^3/ul Absolute Nucleated RBC 0 10^3/ul Nucleated RBC % 0 Sodium 138 (135-145) mmol/L Potassium 4.7 (3.5-5.0) mmol/L Chloride 103 (101-111) mmol/L Carbon Dioxide 29 (22-32) mmol/L Anion Gap 6 (2-11) mmol/L BUN 15 (6-24) mg/dL Creatinine 1.04 (0.67-1.17) mg/dL Est GFR ( Amer) 91.8 (>60) Est GFR (Non-Af Amer) 75.9 (>60) BUN/Creatinine Ratio 14.4 (8-20) Glucose 99 (70-100) mg/dL Lactic Acid 1.8 (0.5-2.0) mmol/L Calcium 9.7 (8.6-10.3) mg/dL Total Bilirubin 0.70 (0.2-1.0) mg/dL AST 18 (13-39) U/L ALT 28 (7-52) U/L Alkaline Phosphatase 74 (34-104) U/L C-Reactive Protein 19.34 H (<8.01) mg/L Total Protein 7.4 (6.4-8.9) g/dL Albumin 4.5 (3.2-5.2) g/dL Globulin 2.9 (2-4) g/dL Albumin/Globulin Ratio 1.6 (1-3) Lipase 16 (11.0-82.0) U/L Result Diagrams: 02/08/18 19:35 02/08/18 19:35 Lab Statement: Any lab studies that have been ordered have been reviewed, and results considered in the medical decision making process. - CT CT Abdomen and Pelvis CT Interpretation Completed By: Radiologist - Abdomen and pelvis CT reveals, per radiologist, 1. 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 THE URETERS LIKELY JOIN DISTALLY ALTHOUGH THIS IS NOT DEFINITE. THERE IS A 5 MM CALCULUS IN THE URETER DRAINING THE UPPER POLE MOIETY CAUSING MILD HYDRONEPHROSIS. 2. THERE ARE ARE SEVERAL ADDITIONAL SMALL BILATERAL RENAL CALCULI. ED physician has reviewed this radiology report. Abdominal Pain Fem Course/Dx - Course Course Of Treatment: This is a 47-year-old man with history of kidney stones presents with left-sided flank pain for several days now and his CT scan shows a 3 x 5 mm stone in the left upper ureter; the patient does have a bit collecting system on the left. His pain is under control with a dose of Toradol IV, and is stable for discharge now with analgesia through the weekend and follow up with his urologist. - Diagnoses Provider Diagnoses: Stone, kidney Discharge - Sign-Out/Discharge Documenting (check all that apply): Patient Departure - Discharge Plan Condition: Improved Disposition: HOME Prescriptions: Naproxen [Naprosyn 500 mg tab] 500 mg PO BID #20 tablet oxyCODONE/Acetamin 5/325 MG* [Percocet 5/325 TAB*] 2 tab PO Q4H PRN #20 tab MDD 8 tabs PRN Reason: Pain Tamsulosin CAP* [Flomax CAP*] 0.4 mg PO DAILY #7 cap Patient Education Materials: Kidney Stones (ED) Referrals: Lis Murphy PA [Primary Care Provider] - - Billing Disposition and Condition Condition: IMPROVED Disposition: Home
[2018-02-09] MEDS ORDERED: Tamsulosin CAP* 0.4 MG PO ONE (01:22)
[2018-02-09] MEDS ORDERED: oxyCODONE/Acetamin 5/325 MG* TAB PO ONE (01:22)
[2018-02-09 02:22] VITALS: BP 139/73
== END 2018-02-09 02:28 | disposition home or self-care (01) ==
LOC: ED 17:44
DX: N13.2 Hydronephrosis with renal and ureteral calculous obstruction (principal); Z87.442 Personal history of urinary calculi; Z87.891 Personal history of nicotine dependence
CPT/HCPCS: 36415; 74176; 80053; 83605; 83690; 85025; 86140; 96374; 96375; 99284; A9270-GY; J1885; J2405

== ENCOUNTER 2018-02-11 14:26 | Day surgery (SDC) | payer OTHER ==
--- NOTE | 2018-02-11 13:36 | HP ---
CC: BAHMAN Cartagena * STAT ADMITTING HISTORY AND PHYSICAL: DATE OF ADMISSION: 02/11/18 ADMITTING DIAGNOSES: 1. Calculus, left proximal ureter. 2. Complete duplication of left ureter. 3. Right renal calculi. 4. Left hydronephrosis. PLANNED PROCEDURE: Left ureteroscopy, possible laser and stent insertion ( possibly to be followed in the near future by lithotripsy). SURGEON: Dr. Mccarthy. HISTORY OF PRESENT ILLNESS: Og Duggan is a 47-year-old gentleman with a history of recurrent bilateral renal calculi. He had been evaluated in the ER on 02/08/18 with left flank pain and was noted to have a 5-mm calculus in the proximal left ureter with evidence of duplication of the left collecting system. He continues to have episodic left flank pain and nausea and he is now being brought in for left stent insertion, possible ureteroscopy. I have explained to him because of the proximal location of the calculus, he may require a 2-stage procedure with an initial stent insertion today followed possibly by lithotripsy in the near future. PAST MEDICAL HISTORY: 1. History of high cholesterol. 2. Hypothyroidism. 3. History of arthritis and degenerative disk disease. 4. History of renal calculi. PAST SURGICAL HISTORY: Significant for: 1. Cervical spine fusion in May of 2017 done in [place]. 2. Left knee surgery. 3. Internal urethrotomy in 2003. 4. History of uvulectomy. MEDICATIONS: On admission: 1. Levothyroxine 0.025 mg once a day. 2. Atorvastatin 20 mg a day. ALLERGIES: No known drug allergies. REVIEW OF SYSTEMS: He denies any chest pain or shortness of breath. There is no history of diabetes mellitus or any other major systemic illness. PHYSICAL EXAMINATION GENERAL: Reveals a pleasant uncomfortable appearing gentleman. VITAL SIGNS: Blood pressure is 140/80; pulse 70 per minute, regular. LUNGS: Clear bilaterally. CARDIOVASCULAR: Regular rate and rhythm. S1, S2. ABDOMEN: Soft with left flank tenderness. 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 PLAN: I have discussed the procedure in detail with Og along with a possible need for a 2-stage procedure and he understands and wishes to proceed as planned. In addition, he also has multiple right-sided renal calculi, which will require treatment at a later stage. Plan is left ureteroscopy, possible laser and stent insertion. [id number]/[facility] #: [id number] [facility]
[~2018-02-11 14:26] MED LIST: Gentamicin ADULT (*) 160 MG in NS 0.9% 100 ML* 100 ML IVPB ONE
[2018-02-11] MEDS ORDERED: ceFAZolin 2 GM PREMIX (*) 2 GM/50 ML BAG IVPB ONE (14:41)
[2018-02-11] MEDS ORDERED: Famotidine IV* 10 MG/ML 2 ML (20 mg) IV SLOW PU ONE (14:41)
[2018-02-11] MEDS ORDERED: Famotidine IV* 10 MG/ML 2 ML (20 mg) ONE (14:41)
[2018-02-11] MEDS ORDERED: cefTRIAXone(*) 2 GM ADDV.VIAL IVPB ONE (15:50)
[2018-02-11] MEDS ORDERED: oxyCODONE TAB* 5 MG TAB PO PRN (16:20)
[2018-02-11] MEDS ORDERED: Acetaminophen TAB* 325 MG PO PRN (16:20)
[2018-02-11] MEDS ORDERED: Naloxone* 0.4 MG/ML 1 ML VIAL IV PRN (16:20)
[2018-02-11] MEDS ORDERED: DiMENhydriNATE IV* 50 MG/ML VIAL IV PUSH PRN (16:20)
[2018-02-11] MEDS ORDERED: HYDROmorphone INJ* 0.5 MG/0.5 ML SYRINGE IV PRN (16:20)
[2018-02-11] MEDS ORDERED: Iohexol 180 (CONTRAST) 10 ML SDV IV ONE ×2 (16:29→19:15)
[2018-02-11] MEDS ORDERED: Midazolam* 1 MG/ML 5 ML VIAL (5 MG) ONE (16:46)
[2018-02-11] MEDS ORDERED: fentaNYL* 50 MCG/ML 2 ML VIAL (100 MCG VIAL) ONE (16:46)
[2018-02-11] MEDS ORDERED: Dexamethasone IV* 4 MG/ML 1 ML (4 MG) ONE (16:53)
[2018-02-11] MEDS ORDERED: Ondansetron INJ* 2 MG/ML VIAL ONE (16:53)
[2018-02-11] MEDS ORDERED: Ketorolac INJ* 30 MG/ML 1 ML VIAL ONE (16:53)
[2018-02-11] MEDS ORDERED: Propofol* 10 MG/ML 20 ML BTL IV PUSH ONE (16:53)
[2018-02-11] MEDS ORDERED: Lidocaine 2% PF * 5 ML VIAL ONE (16:53)
[2018-02-11] MEDS ORDERED: DiMENhydriNATE IV* 50 MG/ML VIAL ONE (16:53)
[2018-02-11] MEDS ORDERED: Fluorescein 10% INJ* 100 MG/ML AMP ONE (18:56)
--- NOTE | 2018-02-11 19:42 | RAD ---
INDICATION: Renal stone COMPARISON: KUB February 11, 2018 FINDINGS: 16 seconds of fluoroscopy were provided for the urology department. Fluoroscopic spot imaging of the abdomen were obtained for operative control and show ureteroscopy with a retrograde examination with placement of ureteral stents in the duplicated left renal collecting system . CPT II Codes: G9500 (fluoro time doc)
[2018-02-11] MEDS ORDERED: Tamsulosin CAP* 0.4 MG ONE (19:46)
[2018-02-11 20:32] VITALS: BP 138/73
--- NOTE | 2018-02-12 08:02 | RAD ---
Indication: Postop for obstructive uropathy. Comparison: February 08, 2018 CT. Technique: Supine view of the abdomen. Report: Duplicated LEFT renal collecting system with paired stents in place. 0.4 cm stone visualized at the level of the upper pole moiety pelvis adjacent to the proximal pigtail of the ureteral stent. 0.5 cm stone visualized at the level of the lower pole of the RIGHT kidney corresponding with CT finding. Unremarkable bowel gas pattern and soft tissue contours. IMPRESSION: #. Duplicated LEFT renal collecting system with paired stents in place. 0.4 cm stone visualized at the level of the upper pole moiety pelvis adjacent to the proximal pigtail of the ureteral stent. #. 0.5 cm RIGHT renal stone.
--- NOTE | 2018-02-12 12:32 | OP ---
CC: BAHMAN Cartagena * DATE OF OPERATION: 02/11/18 - [facility] DATE OF : 66 SURGEON: Dr. Mccarthy. ANESTHESIOLOGIST: Dr. Jiang. ANESTHESIA: General. PRE-OP DIAGNOSES: 1. Calculus, left ureter. 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 POST-OP DIAGNOSES: 1. Calculus, left ureter. 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 OPERATIVE PROCEDURE: 1. Cystoscopy, left retrograde pyelogram (of upper pole and lower pole moiety). 2. Left ureteroscopy and left stent insertion (stents placed separately in upper pole and lower pole collecting system). COMPLICATIONS: None. STENTS USED: 1. 4.7-Kosovan stent in left upper pole collecting system (medial orifice). 2. 6-Kosovan stent in left lower pole collecting system (lateral orifice). 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 In the CT scan, it appeared that the calculus may be involving the ureter draining from the upper pole moiety, although this is not certain. POSTOPERATIVE CONDITION: Stable. DESCRIPTION OF PROCEDURE: After induction of general anesthesia, the patient was placed in dorsal lithotomy position. Sequential compression devices were in place and functioning. Initial cystoscopy revealed a mild stricture in the urethra, which was easily dilated. The bladder was examined. There was a single orifice on the right side. There were two separate ureteral orifices on the left side. These were located fairly close to each other and it is hard to distinguish visually which one was the lower of the two orifices (usually the lower orifice drains the upper pole system). First, I cannulated the more lateral of the two orifices and retrograde pyelogram revealed mild fullness of the collecting system and initially I thought I could see calculus in the area adjacent to the guidewire. It was hard to tell from the initial contrast injection into this collecting system whether this was the upper pole or lower pole collecting system and I initially introduced the ureteroscope into the distal ureter but because it was fairly narrow decided not to proceed with further ureteroscopy. The ureteroscope was withdrawn under direct vision and a 6-Kosovan stent was placed into the collecting system, which was being drained by the more lateral of the orifices. Next, the patient was given intravenous fluorescein and I could see the effluxing from the right ureter and also from the stented left ureter but not from the other orifice. This made me concerned that this may be the obstructed part of the collecting system and a guidewire was introduced into the more medial of the two left-sided orifices. Once I injected contrast into this, it was clear that this was the upper pole collecting system and I elected to place a 4.7-Kosovan stent into the ureter draining the upper pole collecting system which is the more medial of the two orifices. Clear efflux was draining from both the collecting systems at the end of the procedure and my plan is to obtain an x-ray to determine the true location of the stone postoperatively and then determine the next step which would be either laser lithotripsy or shockwave lithotripsy depending on the eventual location of the calculus. The bladder was emptied. The patient tolerated the procedure satisfactorily and was transferred back to the recovery area in stable condition. Because of the nature of the complete duplication, this case was of unusual length and complexity. [id number]/[facility] #: [id number] ANNETTE
== END 2018-02-11 20:43 | disposition home or self-care (01) ==
LOC: OR 14:26
PROVIDERS: ATTEND Urology
DX: N13.2 Hydronephrosis with renal and ureteral calculous obstruction (principal); Q62.5 Duplication of ureter; E78.00 Pure hypercholesterolemia, unspecified; E03.9 Hypothyroidism, unspecified; M19.90 Unspecified osteoarthritis, unspecified site; M50.30 Other cervical disc degeneration, unspecified cervical region; E66.9 Obesity, unspecified
CPT/HCPCS: 74018; 74420; A9270-GY; C1876; J0690; J0696; J1100; J1240; J1580; J1885; J2250; J2405; J2704; J3010

== ENCOUNTER 2018-02-25 10:31 | Day surgery (SDC) | payer OTHER ==
[~2018-02-25 10:31] MED LIST changes: +Buffered Lidocaine 0.9% SYRIN* 5 ML/SYR SYRINGE INTRADERM ONE; +Famotidine IV* 10 MG/ML 2 ML (20 mg) IV ONE
[2018-02-25] MEDS ORDERED: Famotidine IV* 10 MG/ML 2 ML (20 mg) ONE (11:11)
--- NOTE | 2018-02-25 11:43 | RAD ---
Indication: Left renal calculus. Project Developer film of the abdomen demonstrates 2 ureteral stents noted in the left renal collecting system presumably duplicated collecting system. No obvious calcifications are noted. Overall no significant change is noted since February 19, 2018. IMPRESSION: There are 2 ureteral stents in the left renal collecting system.
[2018-02-25] MEDS ORDERED: cefTRIAXone(*) 2 GM ADDV.VIAL IVPB ONE (11:51)
[2018-02-25] MEDS ORDERED: fentaNYL* 50 MCG/ML 2 ML VIAL (100 MCG VIAL) ONE (12:03)
[2018-02-25] MEDS ORDERED: Midazolam* 1 MG/ML 5 ML VIAL (5 MG) ONE (12:03)
[2018-02-25] MEDS ORDERED: Furosemide IV* 10 MG/ML 2 ML VIAL (20 MG) ONE (12:57)
[2018-02-25] MEDS ORDERED: Phenylephrine IV* 40 MCG/ML 10 ML SYRINGE ONE (12:57)
[2018-02-25] MEDS ORDERED: Dexamethasone IV* 4 MG/ML 1 ML (4 MG) ONE (12:57)
[2018-02-25] MEDS ORDERED: Propofol* 10 MG/ML 20 ML BTL IV PUSH ONE (12:57)
[2018-02-25] MEDS ORDERED: Ondansetron INJ* 2 MG/ML VIAL ONE (12:57)
[2018-02-25] MEDS ORDERED: Acetaminophen TAB* 325 MG PO PRN (13:14)
[2018-02-25] MEDS ORDERED: oxyCODONE TAB* 5 MG TAB PO PRN (13:14)
[2018-02-25] MEDS ORDERED: Naloxone* 0.4 MG/ML 1 ML VIAL IV PRN (13:14)
[2018-02-25] MEDS ORDERED: HYDROmorphone INJ* 0.5 MG/0.5 ML SYRINGE IV PRN (13:14)
[2018-02-25] MEDS ORDERED: DiMENhydriNATE IV* 50 MG/ML VIAL IV PUSH PRN (13:14)
[2018-02-25 14:37] VITALS: BP 123/71
--- NOTE | 2018-02-25 15:53 | RAD ---
HISTORY: s/p eswl, stent removal COMPARISONS: February 25, 2018 at 10:57 AM VIEWS: Frontal views of the abdomen, and 3:20 PM. FINDINGS: BOWEL: There is a nonspecific bowel gas pattern, with nondilated small bowel gas noted. CALCULI: There has been interval removal of the left ureteral stents. There is a 0.6] The right renal parenchymal shadow. BONES AND SOFT TISSUES: Mild degenerative changes are noted. OTHER FINDINGS: The lung bases are clear. There is no subphrenic gas. IMPRESSION: INTERVAL REMOVAL LEFT URETERAL STENTS. RIGHT NEPHROLITHIASIS.
--- NOTE | 2018-02-26 13:47 | OP ---
DATE OF OPERATION: 02/25/18 - [facility] DATE OF : 66 SURGEON: Daquan Mccarthy MD. ANESTHESIOLOGIST: Dr. Jiang. ANESTHESIA: General. PRE-OP DIAGNOSES: 1. Left renal calculus. 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 POST-OP DIAGNOSES: 1. Left renal calculus. 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 OPERATIVE PROCEDURE: 1. Shock-wave lithotripsy of left renal calculus. 2. Cystoscopy and removal of 2 left-sided ureteral stents. INDICATIONS: Og Duggan is a 47-year-old gentleman with a complete duplication of the left ureteral - renal collecting system. He had 2 left- sided stents placed and later on was noted to have a calculus in the upper pole moiety. COMPLICATIONS: None. POSTOPERATIVE CONDITION: Stable. DESCRIPTION OF PROCEDURE: After induction of general anesthesia, the patient was initially placed on the lithotripsy table in supine position. The calculus in the upper pole was obscured by the loop of the stent. So, I elected to go ahead and proceed with the left stent removal first. The patient was placed in dorsal lithotomy position and cystoscopy was performed. Both the previously placed left stents were removed. Next, the patient was placed on the lithotripsy table in supine position. After the stent removal, the calculus in the upper pole could be easily visualized and it was targeted under fluoroscopic monitoring for shock-wave lithotripsy at a rate of 60 shocks per minute. Good fragmentation was observed and a total of 1200 shocks were administered. The patient tolerated the procedure satisfactorily and was transferred back to the recovery area in stable condition. [id number]/[facility] #: [id number] MTDD
== END 2018-02-25 15:05 | disposition home or self-care (01) ==
LOC: OR 10:31
PROVIDERS: ATTEND Urology
DX: N13.2 Hydronephrosis with renal and ureteral calculous obstruction (principal); Q62.5 Duplication of ureter; E03.9 Hypothyroidism, unspecified; E78.5 Hyperlipidemia, unspecified; G47.33 Obstructive sleep apnea (adult) (pediatric); R42 Dizziness and giddiness
CPT/HCPCS: 74018; J0696; J1100; J1580; J1940; J2250; J2405; J2704; J3010

== ENCOUNTER 2018-04-03 09:37 | Inpatient (IN) | payer OTHER ==
[2018-04-03] MEDS ORDERED: Morphine INJ* 2 MG/ML 1 ML SYRINGE (TWO MG - NEW SYRINGE VERSION) IV ONE (09:39)
[2018-04-03] MEDS ORDERED: NS 0.9% 1000 ML* 2,000 ML IV ONE ×2 (09:39→13:36)
[2018-04-03] MEDS ORDERED: Ondansetron ODT TAB* 4 MG PO ONE (09:39)
[2018-04-03] MEDS ORDERED: cefTRIAXone(*) 2 GM in NS 0.9% 50 ML* 100 ML IVPB ONE (09:43)
--- NOTE | 2018-04-03 09:53 | ED ---
GI/ HPI - HPI Summary HPI Summary: This pt is a 47 y/o male [facility]. Mccarthy c/o right flank pain since midnight. Pt reports right flank pain radiating into right testicle. He rates his pain 10/10 in severity. He also notes chills. Denies fever, chest pain, SOB, nausea, vomiting. Pt has a hx of kidney stones and had a left kidney stone removed about 1 month ago. He states he has had a kidney stone on the right for some time and it has been dormant until today. - History of Current Complaint Time Seen by Provider: 04/03/18 09:38 Stated Complaint: RIGHT SIDE FLANK PAIN Hx Obtained From: Patient Onset/Duration: Started Hours Ago, Still Present Timing: Lasting Hours Current Severity: Severe Pain Intensity: 10 Location of Pain: Flank - Right Additional Locations for Males: Testicles - radiates to R testicle Associated Signs and Symptoms: Positive: Chills. Negative: Fever, Chest Pain, Other: - SOB Aggravating Factor(s): Nothing Alleviating Factor(s): Nothing - Additional Pertinent History Primary Care Physician: MERARI - Allergy/Home Medications Allergies/Adverse Reactions: Allergies Allergy/AdvReac Type Severity Reaction Status Date / Time No Known Allergies Allergy Verified 02/25/18 10:59 PMH/Surg Hx/FS Hx/Imm Hx Endocrine/Hematology History: Reports: Hx Thyroid Disease - hypothyroid Denies: Hx Diabetes Cardiovascular History: Reports: Hx Hypercholesterolemia, Other Cardiovascular Problems/Disorders - hyperlipidemia Denies: Hx Congestive Heart Failure, Hx Hypertension, Hx Pacemaker/ICD Respiratory History: Reports: Hx Asthma - bronchial, Hx Sleep Apnea GI History: Reports: Hx Gastroesophageal Reflux Disease - occassionally History: Reports: Hx Kidney Stones, Hx Renal Disease - STONES Musculoskeletal History: Reports: Hx Arthritis - lower back- DDD, Hx Back Problems - increasing back pain 04/2013 Denies: Hx Scoliosis Sensory History: Reports: Hx Contacts or Glasses - glasses Denies: Hx Hearing Aid Opthamlomology History: Reports: Hx Contacts or Glasses - glasses Neurological History: Reports: Other Neuro Impairments/Disorders - dizziness noted before Denies: Hx Headaches Psychiatric History: Denies: Hx Panic Disorder - Cancer History Hx Chemotherapy: No - Surgical History Surgery Procedure, Year, and Place: T&A; Appendectomy; Left Knee Surgery; Left Elbow; Throat (UPPP?); Septoplasty. 01/2018 kidney stone surgery. 05/2017 cervical neck fusion Hx Anesthesia Reactions: No Infectious Disease History: No Infectious Disease History: Denies: Traveled Outside the [place] in Last 30 Days - Family History Known Family History: Positive: Cardiac Disease, Other - Lung CA - Social History Alcohol Use: Occasionally Hx Substance Use: Yes Substance Use Type: Reports: None Substance Use Comment - Amount & Last Used: percocet 5/325 q4h prn, Hx Tobacco Use: Yes Smoking Status (MU): Former Smoker Amount Used/How Often: 15 years smoked 1.5 ppd Review of Systems Positive: Chills. Negative: Fever Negative: Chest Pain Negative: Shortness Of Breath Genitourinary: Other - R testicular pain Positive: flank pain - right Skin: Negative Neurological: Negative All Other Systems Reviewed And Are Negative: Yes Physical Exam - Summary Physical Exam Summary: VITAL SIGNS: Reviewed. GENERAL: Patient is a well-developed and nourished male who is lying comfortable in the stretcher. Patient is not in any acute respiratory distress. HEAD AND FACE: No signs of trauma. No ecchymosis, hematomas or skull depressions. No sinus tenderness. EYES: PERRLA, EOMI x 2, No injected conjunctiva, no nystagmus. EARS: Hearing grossly intact. Ear canals and tympanic membranes are within normal limits. MOUTH: Oropharynx within normal limits. NECK: Supple, trachea is midline, no adenopathy, no JVD, no carotid bruit, no c- spine tenderness, neck with full ROM. CHEST: Symmetric, no tenderness at palpation LUNGS: Clear to auscultation bilaterally. No wheezing or crackles. CVS: Regular rate and rhythm, S1 and S2 present, no murmurs or gallops appreciated. ABDOMEN: Soft. No signs of distention. No rebound no guarding, and no masses palpated. Bowel sounds are normal. Positive right costovertebral angle tenderness. : Circumcised penis, both testicles are descended. No masses are appreciated. Positive cremasteric reflex. EXTREMITIES: FROM in all major joints, no edema, no cyanosis or clubbing. NEURO: Alert and oriented x 3. No acute neurological deficits. Speech is normal and follows commands. SKIN: Dry and warm Triage Information Reviewed: Yes Vital Signs On Initial Exam: Initial Vitals Temp Pulse Resp BP Pulse Ox 98.5 F 81 18 144/61 100 04/03/18 09:38 04/03/18 09:38 04/03/18 09:38 04/03/18 09:38 04/03/18 09:38 Vital Signs Reviewed: Yes Diagnostics - Vital Signs Vital Signs Temp Pulse Resp BP Pulse Ox 04/03/18 09:38 98.5 F 81 18 144/61 100 - Laboratory Result Diagrams: 04/04/18 04:49 04/04/18 04:49 Lab Statement: Any lab studies that have been ordered have been reviewed, and results considered in the medical decision making process. - Radiology Chest XR Xray Interpretation: No Acute Changes - IMPRESSION: No evidence for acute intrathoracic disease. Dr. Daniels has reviewed this radiology report. Radiology Interpretation Completed By: Radiologist - CT Abdomen/Pelvis CT CT Interpretation: Positive (See Comments) - IMPRESSION: Right nephrolithiasis with a 0.6 cm calculus of the right UPJ with perinephric stranding and mild to moderate hydronephrosis. Dr. Daniels has reviewed this radiology report. CT Interpretation Completed By: Radiologist - EKG 09:51 Cardiac Rate: NL - at 92 bpm EKG Rhythm: Sinus Rhythm EKG Interpretation: No ST elevations. Normal axis. GIGU Course/Dx - Course Assessment/Plan: This patient is a 47-year-old male who presents to the emergency department after he was transferred from Dr. Wolfe office with a chief complaint of left flank pain. The patient has history of kidney stones and he thinks that this is another episode of a kidney stone. He denies any fever however he states that he is having chills. He has nausea without vomiting. Denies any diarrhea or constipation. Denies any chest pain or heart palpitations. In the ED course we started him with IV fluids, I gave him morphine for the pain and Zofran for the nausea. The patient was also started initially with Rocephin 2 g IV and gentamicin 80 mg IV. This was suggested by Dr. Mccarthy. Blood work without any significant abnormality, CRP is 31.4. Urinalysis shows positive for UTI. Abdominal/pelvic CT shows a 6 mm kidney stone. I discussed my findings and test results with Dr. Ibarra from the hospitalist services who accepted the patient for admission. Dr. Mccarthy requested to keep the patient nothing by mouth and he will place a stent today at 5 PM. At this point the patient is hemodynamically stable alert and oriented 3. - Diagnoses Provider Diagnoses: Ureterolithiasis, UTI (urinary tract infection) - Physician Notifications Discussed Care Of Patient With: Boy Ibarra Time Discussed With Above Provider: 12:36 Instructed by Provider To: Admit As Inpatient Discharge - Sign-Out/Discharge Documenting (check all that apply): Patient Departure - Admit to [facility] - Discharge Plan Condition: Stable Disposition: ADMITTED TO [facility] - Billing Disposition and Condition Condition: STABLE Disposition: Admitted to [facility] - Attestation Statements Document Initiated by Arpitaibe: Yes Documenting Scribe: Melba Urrutia Provider For Whom Debra is Documenting (Include Credential): Jose Elias Daniels MD Scribe Attestation: Melba Zamora, scribed for Jose Elias Daniels MD on 04/04/18 at 0810. Scribe Documentation Reviewed: Yes Provider Attestation: The documentation as recorded by the Melba couch accurately reflects the service I personally performed and the decisions made by , Jose Elias Daniels MD
[2018-04-03] MEDS ORDERED: Ondansetron INJ* 2 MG/ML VIAL ONE (10:02)
[2018-04-03] MEDS ORDERED: Ketorolac INJ* 30 MG/ML 1 ML VIAL IV PUSH ONE (10:14)
[2018-04-03 10:18] LABS: Hematocrit 41 % (42-52); Hemoglobin 14.6 g/dl (14.0-18.0); Mean Corpuscular HGB Conc 36 g/dl (31-36); Mean Corpuscular Hemoglobin 31 pg (27-31); Mean Corpuscular Volume 87 fL (80-94); Mean Platelet Volume 7.6 um3 (7.4-10.4); Platelet Count 195 10^3/ul (150-450); Red Blood Count 4.71 10^6/ul (4.00-5.40); Red Cell Distribution Width 14 % (10.5-15); White Blood Count 8.2 10^3/ul (3.5-10.8)
[2018-04-03] MEDS ORDERED: Ondansetron INJ* 2 MG/ML VIAL IV ONE (10:18)
[2018-04-03 10:25] LABS: ABS Basophils 0 10^3/ul (0-0.2); ABS Eosinophils 0 10^3/ul (0-0.6); ABS Lymphocytes 0.6 10^3/ul (1.0-4.8); ABS Monocytes 0.8 10^3/ul (0-0.8); ABS Neutrophils 6.9 10^3/ul (1.5-7.7); ABS Nucleated RBC 0 10^3/ul; Eosinophil % 0.5 % (0-6); Lymphocyte % 7.2 % (25-47); Nucleated Red Blood Cells % 0.4
[2018-04-03 10:36] LABS: EGFR Non-African American 71.1 (>60)
--- NOTE | 2018-04-03 11:41 | RAD ---
CLINICAL HISTORY: flank pain COMPARISON: None TECHNIQUE: Multiple contiguous axial CT scans were obtained of the abdomen and pelvis after the administration of intravenous contrast. Coronal and sagittal multiplanar reformations are submitted for review. Oral contrast was not administered. FINDINGS: Evaluation is limited due to the lack of intravenous contrast. This limits evaluation of the solid organs and vasculature. LUNG BASES: The lung bases are clear. LIVER: The liver is normal in shape, size, contour, and attenuation. BILE DUCTS: There is no intrahepatic or extrahepatic biliary dilatation. GALLBLADDER: The gallbladder is normal, without pericholecystic inflammatory change. PANCREAS: The pancreas is normal, without mass or ductal dilatation. SPLEEN: Normal in size and appearance. UPPER GI TRACT: Evaluation of the gastrointestinal tract is limited by incomplete gastric distention. The upper GI tract is unremarkable. SMALL BOWEL AND MESENTERY: The small bowel is normal in contour, course, and caliber. There is no obstruction or dilatation. COLON: The colon is normal in contour, course, caliber. There is no pericolonic inflammatory change. ADRENALS: Normal bilaterally. KIDNEYS: There is perinephric stranding on the right. There is mild to moderate pelvocaliectasis. There is a 0.6 cm calculus of the proximal right ureter at the UPJ. There is a punctate calculus of the lower pole of the right kidney. BLADDER: The bladder is smooth in contour. PELVIC ORGANS: The prostate gland is normal. The seminal vesicles are symmetric. AORTA: The aorta is normal. IVC: Unremarkable LYMPH NODES: There is no lymphadenopathy by size criteria. ABDOMINAL WALL: There is no evidence for abdominal wall hernia. BONES AND SOFT TISSUES: Mild degenerative changes are noted most pronounced at L5-S1. OTHER: None IMPRESSION: RIGHT NEPHROLITHIASIS WITH A 0.6 CM CALCULUS OF THE RIGHT UPJ WITH PERINEPHRIC STRANDING AND MILD TO MODERATE HYDRONEPHROSIS.
[2018-04-03 12:22] LABS: Urine Appearance Clear; Urine Blood 1+ (Negative); Urine Color Straw; Urine Ketones Negative (Negative); Urine Protein Negative (Negative); Urine Red Blood Cell Trace(0-2/hpf) (Absent); Urine Specific Gravity 1.008 (1.010-1.030); Urine Urobilinogen Negative (Negative); Urine White Blood Cell 2+(11-20/hpf) (Absent)
[2018-04-03] MEDS ORDERED: Gentamicin ADULT (*) 80 MG in NS 0.9% 100 ML* 100 ML IVPB ONE (13:00)
[2018-04-03] MEDS ORDERED: Acetaminophen TAB* 325 MG PO PRN (13:36)
[2018-04-03] MEDS ORDERED: Ondansetron INJ* 2 MG/ML VIAL IV PRN (13:36)
[2018-04-03] MEDS ORDERED: Morphine INJ* 2 MG/ML 1 ML SYRINGE (TWO MG - NEW SYRINGE VERSION) IV PRN (13:36)
[2018-04-03] MEDS ORDERED: Meclizine TAB* 12.5 MG PO PRN (13:38)
[2018-04-03] MEDS ORDERED: NS 0.9% 1000 ML* 1,000 ML IV SCH (13:45)
[2018-04-03] MEDS ORDERED: NS 0.9% 100 ML* 100 ML ONE (14:00)
[2018-04-03 14:28] LABS: INR 1.01 (0.77-1.02)
--- NOTE | 2018-04-03 14:32 | RAD ---
Indication: Fever. LEFT ureteral stent placed last month. Comparison: April 03, 2018 CT abdomen. Technique: Upright AP 1346 hours. Report: Clear lungs and pleural spaces. Negative for pneumothorax. The heart, pulmonary vasculature, and mediastinal contours are unremarkable. Anterior cervical fusion hardware noted at C5-C6 level. IMPRESSION: #. No evidence for acute intrathoracic disease.
[2018-04-03] MEDS ORDERED: HYDROmorphone INJ1* 1 MG/ML SYRINGE ONE (16:26)
[2018-04-03] MEDS ORDERED: Famotidine IV* 10 MG/ML 2 ML (20 mg) ONE (16:26)
[2018-04-03] MEDS ORDERED: Iohexol 180 (CONTRAST) 10 ML SDV IV ONE (16:38)
[2018-04-03] MEDS ORDERED: fentaNYL* 50 MCG/ML 2 ML VIAL (100 MCG VIAL) ONE (17:11)
[2018-04-03] MEDS ORDERED: Midazolam* 1 MG/ML 5 ML VIAL (5 MG) ONE (17:11)
[2018-04-03] MEDS ORDERED: Propofol* 10 MG/ML 20 ML BTL IV PUSH ONE (17:45)
[2018-04-03] MEDS ORDERED: Naloxone* 0.4 MG/ML 1 ML VIAL IV PRN (17:52)
--- NOTE | 2018-04-03 19:08 | HP ---
CC: BAHMAN Cartagena; Dr. Mccarthy * HISTORY AND PHYSICAL: DATE OF ADMISSION: 04/03/18 PRIMARY CARE PROVIDER: BAHMAN Cartagena ATTENDING PHYSICIAN WHILE IN HOSPITAL: Dr. Boy Ibarra * (report dictated by Miah Murphy NP). CONSULTING UROLOGIST: Dr. Mccarthy. CHIEF COMPLAINT: Right flank pain. HISTORY OF PRESENT ILLNESS: Mr. Duggan is a 47-year-old male patient. He has a known history of nephrolithiasis. He also carries a history of hyperlipidemia , BPPV, history of hypothyroidism, and KOMAL for which he wears a BiPAP, comes into our ER today. He says that over the weekend, he was not feeling well, he was feeling nauseous. He was feeling tired and fatigued. He was noticing that he is having urgency and frequency along with he said it is stinging when he was peeing at times. He thought that he was getting better. He went to work yesterday, got home at midnight and then throughout the night, he started having pain on his right side. He says it came on pretty suddenly, it was coming in waves with a sharp stabbing pain, getting worse and worse throughout the night. He woke up this morning, the pain was unbearable, particularly at 4 in the morning. He tried taking medications to help with the pain that did not help. He called his urologist and was able to get an appointment. He had a ultrasound done obtained today, which did show obstructing stone. He was sent to the hospital. He did state that over the weekend, he did have some chills. He denied having any chest pain or shortness of breath. He says typically he can walk up a flight of stairs and he does not get chest pain or shortness of breath. He says that prior to this, denied having any recent cough or shortness of breath. He said that he was concerned because of the pain. He came in, he had a CAT scan, which did show some stranding on the right kidney. His urine did show white cells and bacteria. In addition to this, when I was examining him, he was felt warm and he did spike a fever here. There was concern because of the stone and [id number]-[id number] hydro he had and we were asked to evaluate for admission. PAST MEDICAL HISTORY: Significant for: 1. Nephrolithiasis. 2. Hyperlipidemia. 3. BPPV. 4. Hypothyroidism. 5. KOMAL. PAST SURGICAL HISTORY: 1. He has had a neck surgery. 2. He has had cystoscopy on the left kidney before with ureteral stenting. 3. He has had left elbow surgery. 4. Left knee arthroscopy. 5. Appendectomy. MEDICATIONS: Home medications include: 1. Atorvastatin 20 mg p.o. daily. 2. Synthroid 25 mcg daily. 3. Probiotic 1 capsule p.o. daily. 4. Metamucil 1 tablespoon p.o. q.a.m. 5. Meclizine 25 mg every 8 hours as needed. 6. Percocet 2 tablets every 4 hours as needed. 7. Flomax 0.4 mg p.o. daily. ALLERGIES TO MEDICATIONS: Include no known drug allergies. FAMILY HISTORY: Mother had a history of heart disease and now recently diagnosed with leukemia. Father had a history of PR. SOCIAL HISTORY: He is a former smoker, he quit over 20 years ago. He does not drink alcohol; if he does, it is very rarely. He works at [employer]. His surrogate decision maker is his . REVIEW OF SYSTEMS: There is documented fever here. He denied any significant weight change. There was no double vision. He denies having any ear discharge. There was no rhinorrhea. There was no sore throat. No thyroid enlargement. Denied having any chest pain. There was no orthopnea. There was no nocturnal dyspnea. There was abdominal pain from my HPI particularly on the flank. He had no nausea or vomiting. There was dysuria and frequency and urgency. He denies any loss of consciousness. No pruritus and no skin ulcerations. Review of 14 systems was completed, all others negative. PHYSICAL EXAMINATION GENERAL: At this time, Mr. Duggan is a 47-year-old male patient. He is sitting in the ED stretcher. He does not appear to be in any acute distress. VITAL SIGNS: Blood pressure 144/61, pulse 81, respirations 18, O2 sat 100%, temperature 98.5, last temperature was 100.6. HEENT: Head: Atraumatic, normocephalic. Eyes: EOMs are intact. Sclerae anicteric and not pale. Throat: Oral mucosa appears to be dry. No oropharyngeal erythema. NECK: Supple. LUNGS: Clear to auscultation bilaterally. There were no wheezes, rales or rhonchi. HEART: Sounds S1, S2. He had a regular rate and rhythm. No murmurs, rubs, or gallops. ABDOMEN: Soft, it was flat. It was nontender. There was CVA tenderness on the right side. EXTREMITIES: Pulses were 2+ throughout. He had a 5/5 strength. NEUROLOGICALLY: He was awake, alert, and oriented x3. No gross focal deficits. SKIN: Intact. DIAGNOSTIC STUDIES/LAB DATA: WBC of 8.2, RBC of 4.71, hemoglobin of 14.6, hematocrit of 41, platelet count of 195. Sodium was 134, potassium 4.1, chloride of 101, bicarb 24, BUN 16, creatinine 1.10, glucose 162, lactic 1.4, calcium 9.5. Total bili 0.6, AST 17, ALT 21, alk phos 87. CRP of 31, lipase 11. Urine showed a low specific gravity, 1+ blood, 3+ leukocyte esterase, 2+ wbc's. He did have an abdominal pelvis CT obtained today, which revealed right nephrolithiasis with a 0.6 cm calculus of the right UPJ with perinephritic stranding and ivxo-me-mrayoemh hydronephrosis. He had an EKG obtained today as well, which revealed normal sinus rhythm, rate of 92. He had no ST elevation or T-wave inversions noted. He did have a chest x-ray obtained today, which when I reviewed I did not appreciate any acute infiltrates or effusions, it appears to be clear. Old medical records were reviewed. ASSESSMENT AND PLAN: Mr. Duggan is a 47-year-old male patient coming in to the ED today with complaints of right-sided flank pain and on evaluation found to have hydronephrosis and a nephrolithiasis in the right ureter. While in the ED , he did spike a fever. He will be admitted under inpatient status for: 1. Nephrolithiasis. Concern for possible pyelonephritis. At this point, he does not show signs of sepsis, white count is okay. He is not tachycardiac. However, he did spike a fever and I am concerned due to this. I did touch base with Dr. Mccarthy, who will take him more urgently to the OR for ureteral stenting. I did place the patient on Rocephin. He did receive a dose of gentamicin in the ED already as well and then the Rocephin. I am going to give him 2 more liters of IV fluids wide open, check blood cultures, repeat his lactic acid, get a urine culture, and continue to follow. He is n.p.o. I have ordered pain medications and antianemics. In terms of risk stratification, he is low risk for complications. His RCRI score is 0. He can proceed with the planned surgery. 2. Hyperlipidemia. Continue statin therapy. 3. Benign paroxysmal positional vertigo. I will go ahead and continue with vertigo, not active at this point. 4. Hypothyroidism. Continue with Synthroid. 5. History of obstructive sleep apnea. I have ordered his BiPAP. His is on her way to get it. 6. DVT prophylaxis. I will order SCDs for the time being. After surgery, we can consider starting heparin. 7. Code status. Full code. 8. Fluids, electrolytes, and nutrition. He is n.p.o. After surgery, we would consider a regular diet. TIME SPENT: Time spent on the admission was 60 minutes, greater than half the time was spent [id number] with the patient obtaining my history and physical, other half time was spent going over the plan of care with the patient and implementing the plan of care. I did discuss the plan of care with my attending , Dr. Ibarra, he is in agreement. MIAH MURPHY, TERRANCE [id number]/[facility] #: [id number] ANNETTE
[2018-04-03] MEDS: oxyCODONE/Acetamin 5/325 MG* TAB PO PRN (21:51)
[2018-04-04] MEDS: oxyCODONE/Acetamin 5/325 MG* TAB PO PRN ×5 (01:57→22:51)
--- NOTE | 2018-04-04 03:36 | OP ---
CC: BAHMAN Cartagena * DATE OF OPERATION: 04/03/18 - ROOM #[id number] DATE OF : 66 SURGEON: Daquan Mccarthy MD ANESTHESIOLOGIST: Dr. Frank. ANESTHESIA: Intravenous sedation. PRE-OP DIAGNOSES: 1. Right hydronephrosis. 2. Obstructing calculus, right ureteropelvic junction. 3. Urinary tract infection. POST-OP DIAGNOSES: 1. Right hydronephrosis. 2. Obstructing calculus, right ureteropelvic junction. 3. Urinary tract infection. OPERATIVE PROCEDURE: Cystoscopy, right retrograde pyelogram, right ureteral calculus manipulation, and right stent insertion. COMPLICATIONS: None. STENT USED: 7-Ethiopian stent, right ureter. OPERATIVE FINDINGS: 1. Meatal stricture. 2. Complete obstruction, right ureter secondary to calculus at right ureteropelvic junction. SPECIMEN: Urine from right kidney for culture and sensitivity. INDICATIONS: Og Duggan is a 47-year-old gentleman who was evaluated on an urgent basis because of right flank pain and nausea. He was noted to have a 7 mm obstructing calculus at the right ureteropelvic junction with a possible associated urinary tract infection. He is now being brought in for urgent right stent insertion, to be followed at some point in the future by lithotripsy. DESCRIPTION OF PROCEDURE: After induction of intravenous sedation, cystoscopy was performed. Stricture was noted at the meatus, which was carefully dilated. The remainder of the urethra was unremarkable. The bladder was examined. The patient has a single orifice on the right side and 2 orifices on the left side (has complete left ureteral duplication). Attention was directed to the right side. Retrograde pyelogram revealed fullness of the right collecting system. The calculus at the ureteropelvic junction was carefully manipulated proximally and then the open ended catheter was used to drain urine from the right renal pelvis, which was sent for culture. Once this was done, 7-Ethiopian stent was introduced and positioned under fluoroscopy with good proximal and distal positioning obtained. The bladder was emptied. The patient tolerated the procedure satisfactorily and was transferred back to the recovery area in stable condition. [id number]/CPS #: [id number] MTDD
[2018-04-04 05:16] LABS: ABS Basophils 0 10^3/ul (0-0.2); ABS Eosinophils 0.1 10^3/ul (0-0.6); ABS Lymphocytes 0.9 10^3/ul (1.0-4.8); ABS Monocytes 1.1 10^3/ul (0-0.8); ABS Neutrophils 8.4 10^3/ul (1.5-7.7); ABS Nucleated RBC 0 10^3/ul; Eosinophil % 0.8 % (0-6); Hematocrit 33 % (42-52); Hemoglobin 11.8 g/dl (14.0-18.0); Lymphocyte % 8.2 % (25-47); Mean Corpuscular HGB Conc 36 g/dl (31-36); Mean Corpuscular Hemoglobin 31 pg (27-31); Mean Corpuscular Volume 88 fL (80-94); Mean Platelet Volume 7.2 um3 (7.4-10.4); Nucleated Red Blood Cells % 0; Platelet Count 134 10^3/ul (150-450); Red Cell Distribution Width 13 % (10.5-15); White Blood Count 10.4 10^3/ul (3.5-10.8)
[2018-04-04 05:33] LABS: EGFR Non-African American 83.3 (>60)
--- NOTE | 2018-04-04 07:47 | RAD ---
INDICATION: Stent placement COMPARISONS: February 11, 2018 TECHNIQUE: Fluoroscopy was provided for a retrograde pyelogram and stent placement. Total fluoroscopy time is: 8 seconds FINDINGS: Spot images demonstrate contrast and a ureteral stent within the renal collecting system. IMPRESSION: FLUOROSCOPY WAS PROVIDED FOR A RETROGRADE PYELOGRAM AND STENT PLACEMENT CPT II Codes: G9500
--- NOTE | 2018-04-04 08:13 | RAD ---
HISTORY: Right Stent Placement COMPARISONS: February 25, 2018 VIEWS: Frontal views of the abdomen. FINDINGS: BOWEL: There is a nonspecific bowel gas pattern, with nondilated small bowel gas noted. CALCULI: There are no abnormal calculi, though evaluation is limited by overlying bowel. A right ureteral stent is noted. The calculus noted on the previous examination is not well-visualized on the current examination. BONES AND SOFT TISSUES: There are no osseous abnormalities. OTHER FINDINGS: None . IMPRESSION: RIGHT URETERAL STENT
--- NOTE | 2018-04-04 08:48 | PN ---
Subjective Date of Service: 04/04/18 Interval History: C/o "waves of chills and sweat" occurring since 4 AM. No fevers recorder. Pain at 8/10 in R flank Objective Active Medications: Acetaminophen (Tylenol Tab*) 650 mg PO Q4H PRN PRN Reason: FEVER/PAIN Atorvastatin Calcium (Lipitor*) 20 mg PO QAM [facility] Ceftriaxone Sodium 1,000 mg/ (Sodium Chloride) 50 mls @ 200 mls/hr IVPB Q24H [facility] Influenza Virus Vaccine (Fluarix *Quad* 2018-*) 0.5 ml IM .ONCE ONE Stop: 04/04/18 09:01 Levothyroxine Sodium (Synthroid Tab*) 25 mcg PO QAM [facility] Meclizine HCl (Antivert Tab*) 25 mg PO Q8HR PRN PRN Reason: dizziness Morphine Sulfate (Morphine Inj ((Syringe))*) 4 mg IV Q4H PRN PRN Reason: PAIN Last Admin: 04/03/18 14:12 Dose: 4 mg Ondansetron HCl (Zofran Inj*) 4 mg IV Q6H PRN PRN Reason: NAUSEA Last Admin: 04/03/18 15:35 Dose: 4 mg Oxycodone/Acetaminophen (Percocet 5/325 Tab*) 2 tab PO Q4H PRN PRN Reason: PAIN Last Admin: 04/04/18 07:10 Dose: 2 tab Tamsulosin HCl (Flomax Cap*) [facility] [place] Vital Signs - 8 hr 04/04/18 04/04/18 04/04/18 01:36 01:57 03:09 Temperature 98.2 F 98.4 F Pulse Rate 68 73 Respiratory 16 16 16 Rate Blood Pressure 113/45 109/48 (mmHg) O2 Sat by Pulse 97 95 Oximetry 04/04/18 04/04/18 04/04/18 07:10 07:18 07:22 Temperature 98.9 F Pulse Rate 91 Respiratory 18 18 18 Rate Blood Pressure 129/74 (mmHg) O2 Sat by Pulse 95 Oximetry Oxygen Devices in Use Now: None Appearance: 47 yo M in nAD, aAOx3 Eyes: No Scleral Icterus, PERRLA Ears/Nose/Mouth/Throat: NL Teeth, Lips, Gums, Mucous Membranes Moist Neck: NL Appearance and Movements; NL JVP, Trachea Midline Respiratory: Symmetrical Chest Expansion and Respiratory Effort, Clear to Auscultation Cardiovascular: NL Sounds; No Murmurs; No JVD, RRR Abdominal: NL Sounds; No Tenderness; No Distention, - - R CVA tenderness Lymphatic: No Cervical Adenopathy Extremities: No Edema, No Clubbing, Cyanosis Skin: No Rash or Ulcers, No Nodules or Sclerosis, - - skin-diaphoretic, warm Neurological: Alert and Oriented x 3, NL Muscle Strength and Tone Result Diagrams: 04/04/18 04:49 04/04/18 04:49 Assess/Plan/Problems-Billing Assessment: 47 yo M with h/o BPH, KOMAL presented with R flank pain, s/p R sided ureteral stent placement by Dr. Mccarthy on 04/03/18 - Patient Problems (1) Nephrolithiasis Comment: s/p stent placement on 04/03/18 worrisome epsodes of chills and diaphoresis, but no objective fever reported. Pt also still has substantial pain. will d/w DR. Mccarthy. cont Ceftriaxone, urine cx pending (2) Sleep apnea Comment: Severe KOMAL; ASV CPAP user. (3) Hyperlipidemia Comment: - Continue atorvastatin. (4) Hypothyroidism Comment: - Continue levothyroxine. (5) DVT prophylaxis Comment: - Heparin SQ.
[2018-04-04] MEDS: cefTRIAXone VIAL(*) 1,000 MG in NS 0.9% 50 ML* 50 ML IVPB SCH (09:41)
[2018-04-04] MEDS: Levothyroxine TAB* 25 MCG TAB PO SCH (09:44)
[2018-04-04] MEDS: Atorvastatin* 20 MG TAB PO SCH (09:44)
[2018-04-04] MEDS: Tamsulosin CAP* 0.4 MG PO SCH (09:44)
[2018-04-04] MEDS: Heparin VIAL(*) 5000 UNITS/ML VIAL (FIVE THOUSAND) SUBCUT SCH ×2 (14:37→22:53)
[2018-04-05] MEDS: Heparin VIAL(*) 5000 UNITS/ML VIAL (FIVE THOUSAND) SUBCUT SCH (05:44)
[2018-04-05 05:48] LABS: ABS Basophils 0 10^3/ul (0-0.2); ABS Eosinophils 0.1 10^3/ul (0-0.6); ABS Monocytes 0.9 10^3/ul (0-0.8); ABS Neutrophils 5.7 10^3/ul (1.5-7.7); ABS Nucleated RBC 0 10^3/ul; Eosinophil % 1.8 % (0-6); Hematocrit 34 % (42-52); Lymphocyte % 12.6 % (25-47); Mean Corpuscular HGB Conc 36 g/dl (31-36); Mean Corpuscular Hemoglobin 31 pg (27-31); Mean Corpuscular Volume 87 fL (80-94); Mean Platelet Volume 7.4 um3 (7.4-10.4); Nucleated Red Blood Cells % 0.1; Platelet Count 146 10^3/ul (150-450); Red Blood Count 3.85 10^6/ul (4.00-5.40); Red Cell Distribution Width 14 % (10.5-15); White Blood Count 7.8 10^3/ul (3.5-10.8)
[2018-04-05 06:01] LABS: EGFR Non-African American 95.8 (>60)
[2018-04-05] MEDS: Levothyroxine TAB* 25 MCG TAB PO SCH (08:02)
[2018-04-05] MEDS: Tamsulosin CAP* 0.4 MG PO SCH (09:11)
[2018-04-05] MEDS: Atorvastatin* 20 MG TAB PO SCH (09:11)
[2018-04-05] MEDS: oxyCODONE/Acetamin 5/325 MG* TAB PO PRN (09:16)
[2018-04-05] MEDS: cefTRIAXone VIAL(*) 1,000 MG in NS 0.9% 50 ML* 50 ML IVPB SCH (09:47)
[2018-04-05 13:33] VITALS: BP 152/74
--- NOTE | 2018-04-08 04:03 | DS ---
CC: BAHMAN Cartagena; Dr. Mccarthy.* DISCHARGE SUMMARY: DATE OF ADMISSION: 04/03/18 DATE OF DISCHARGE: 04/05/18 PRIMARY CARE PROVIDER: BAHMAN Cartagena. DISCHARGE DIAGNOSES: 1. Nephrolithiasis and ureteral stone resulting in right sided hydronephrosis status post cystoscopy and stent placement into the ureter by Dr. Mccarthy on 04/03. 2. Likely urinary tract infection with cultures growing up to 25,000 colonies of E. Coli. The E. Coli was sensitive to all the antibiotics tests on the sensitivity report. SECONDARY DIAGNOSES: 1. History of nephrolithiasis in the past. 2. History of hyperlipidemia. 3. History of hypothyroidism. 4. History of obstructive sleep apnea. 5. History of benign prostatic hyperplasia. MEDICATIONS AT DISCHARGE: Includes: 1. Lipitor 20 mg daily. 2. Acidophilus 1 capsule daily. 3. Synthroid 25 mcg daily. 4. Metamucil 1 tablespoon q.a.m. 5. Flomax 0.4 mg daily. 6. Cefdinir 300 mg b.i.d. for total of 8 days to complete 10 day treatment. 7. Ibuprofen 600 mg b.i.d. p.r.n. 8. Meclizine 25 mg every 8 hours p.r.n. 9. Percocet 5/325 mg 1 tablet every 4 hours p.r.n. pain. The patient was prescribed a total of 24 tablets which is 4 day supply. The I-STOP was checked and his last Percocet prescription was 20 tablets that was prescribed on . LABORATORY DATA AND STUDIES PERFORMED DURING THE HOSPITAL STAY: Included on 02/13, white blood cell count 7.8, hemoglobin 12.0, hematocrit 34 and platelets of 146. Sodium was 139, potassium 3.7, chloride 105, carbon dioxide 28, BUN 11 , creatinine 0.85. Urine cultures positive for 25,000 colonies of E. Coli. Blood cultures negative. CT of the abdomen and pelvis obtained on 04/03/18, impression; "right nephrolithiasis with a 0.6 cm calculus of the right UPJ with perinephritic stranding and hpwo-rk-rncsklny hydronephrosis." Abdomen x-ray obtained after this stent placement on 04/03/18, impression; "right ureteral stent". Portable chest x-ray obtained on admission on 04/03/18, impression; "no evidence of acute intrathoracic disease". HOSPITALIZATION COURSE: Og Duggan is a 47-year-old male with history of nephrolithiasis, who presented to the hospital complaining of right flank pain. The patient was noted to have right sided hydronephrosis and Dr. Mccarthy took patient to the OR for cystoscopy and stent placement in the right ureter. Postoperatively patient did rather poorly and developed episodes of chills, and he stayed another day. On the day of discharge his pain is in the right flank is at 3/10. The pain is controlled with Percocet, which will be prescribed at discharge. He is also going to be prescribed cefdinir for a total of 8 days duration of treatment to complete a total of 10 day duration treatment overall including the 2 days of his hospitalization. He is already scheduled by Dr. Mccarthy to follow on 04/09/18. The patient is also recommended to follow up with primary care provider in approximately 4 to 7 days. PHYSICAL EXAMINATION AT THE TIME OF DISCHARGE: Blood pressure 132/59, heart rate of 70 and respiratory rate 16, oxygen saturation 98% on room air, temperature 98.7. General: The patient is very pleasant 47-year-old male, who is in no acute distress. Alert, awake and oriented x3. HEENT: Head: Atraumatic, normocephalic. Eyes: Pupils are equal, reactive to light and accommodation. Oropharynx is clear. Mucosa moist. Neck: Supple. No JVD. No bruits bilaterally. Cardiovascular: Regular rate and rhythm. No murmur. Respiratory: Clear to auscultation bilaterally. Abdomen: Soft, tender in the right CVA region with no rebound, no guarding. Bowel sounds are present in all 4 quadrants. Extremities: There is no edema. Pulses are +2 bilaterally. No clubbing or cyanosis. Neuro Evaluation: Speech clear. Cranial nerves II through XII are grossly intact. Motor strength is 5/5 bilaterally. Please note that this is a short summary of the patient's hospitalization. Please refer to further medical records for details. TIME SPENT: Approximately 40 minutes were spent on the patient's discharge. [id number]/[facility] #: [id number] [facility]
== END 2018-04-05 13:10 | disposition home or self-care (01) | DRG 661 ==
LOC: ED 09:37 → SSU 13:48
PROVIDERS: ADMIT Student in an Organized Health Care Education/Training Program; ATTEND Internal Medicine
PROC: 0T738DZ Dilation of Right Kidney Pelvis with Intraluminal Device, Via Natural or Artificial Opening Endoscopic (ICD-10-PCS; 2018-04-03)
PROC: BT1DZZZ Fluoroscopy of Right Kidney, Ureter and Bladder (ICD-10-PCS; principal; 2018-04-03 17:00)
DX: N13.6 Pyonephrosis (principal); E03.9 Hypothyroidism, unspecified; E78.5 Hyperlipidemia, unspecified; J45.909 Unspecified asthma, uncomplicated; K21.9 Gastro-esophageal reflux disease without esophagitis; G47.33 Obstructive sleep apnea (adult) (pediatric); N35.9 Urethral stricture, unspecified; Z98.1 Arthrodesis status; Z82.49 Family history of ischemic heart disease and other diseases of the circulatory system; Z80.1 Family history of malignant neoplasm of trachea, bronchus and lung; Z87.442 Personal history of urinary calculi; Z72.89 Other problems related to lifestyle; Z87.891 Personal history of nicotine dependence; Z80.6 Family history of leukemia; B96.20 Unspecified Escherichia coli [E. coli] as the cause of diseases classified elsewhere; R68.83 Chills (without fever); N40.0 Benign prostatic hyperplasia without lower urinary tract symptoms; Z90.89 Acquired absence of other organs; M46.90 Unspecified inflammatory spondylopathy, site unspecified; Z23 Encounter for immunization
CPT/HCPCS: 36415; 71045; 74018; 74176; 74420; 80048; 80053; 81003; 81015; 82365; 83605; 83690; 85025; 85610; 86140; 87040; 87077; 87086; 87186; 88300; 90686; 93005; 99284; A9270-GY; C1876; J0696; J1170; J1580; J1644; J1885; J2250; J2270; J2405; J2704; J3010

== ENCOUNTER 2018-04-22 09:02 | Day surgery (SDC) | payer OTHER ==
[~2018-04-22 09:02] MED LIST changes: +DiMENhydriNATE IV* 50 MG/ML VIAL IV PUSH PRN; -Gentamicin ADULT (*) 160 MG in NS 0.9% 100 ML* 100 ML IVPB ONE; +HYDROmorphone INJ1* 1 MG/ML SYRINGE IV PRN; +Naloxone* 0.4 MG/ML 1 ML VIAL IV PRN; +oxyCODONE/Acetamin 5/325 MG* TAB PO PRN
[2018-04-22] MEDS ORDERED: Midazolam* 1 MG/ML 5 ML VIAL (5 MG) ONE (09:29)
[2018-04-22] MEDS ORDERED: fentaNYL* 50 MCG/ML 2 ML VIAL (100 MCG VIAL) ONE (09:29)
[2018-04-22] MEDS ORDERED: Famotidine IV* 10 MG/ML 2 ML (20 mg) ONE (09:51)
[2018-04-22] MEDS ORDERED: cefTRIAXone(*) 2 GM ADDV.VIAL IVPB ONE (09:51)
[2018-04-22] MEDS ORDERED: Furosemide IV* 10 MG/ML 2 ML VIAL (20 MG) ONE (10:52)
[2018-04-22] MEDS ORDERED: Lidocaine 2% PF * 5 ML VIAL ONE (10:52)
[2018-04-22] MEDS ORDERED: Ondansetron INJ* 2 MG/ML VIAL ONE (10:53)
[2018-04-22] MEDS ORDERED: Ketorolac INJ* 30 MG/ML 1 ML VIAL ONE (10:53)
[2018-04-22] MEDS ORDERED: Propofol* 10 MG/ML 20 ML BTL IV PUSH ONE (10:53)
[2018-04-22] MEDS ORDERED: Dexamethasone IV* 4 MG/ML 1 ML (4 MG) ONE (10:53)
--- NOTE | 2018-04-22 11:05 | RAD ---
Indication: Preshock wave lithotripsy. RIGHT side renal calculi. Comparison: April 10, 2018 Technique: Supine view of the abdomen. Report: Unchanged 0.6 cm stone at level of the midpole of the RIGHT kidney. RIGHT ureteral stent in place. Unremarkable soft tissue contours and bowel gas pattern. IMPRESSION: #. Unchanged solitary 0.6 cm stone at the midpole the RIGHT kidney.
[2018-04-22 12:41] VITALS: BP 130/80
--- NOTE | 2018-04-22 15:31 | RAD ---
Indication: Postoperative. Single view of the abdomen demonstrates air distended colon and small bowel likely representing adynamic ileus. No evidence of abnormal calcifications are noted. Organ silhouettes are unremarkable. IMPRESSION: Mildly distended air-filled loops of small bowel and colon in a nonspecific pattern.
--- NOTE | 2018-04-22 22:26 | OP ---
CC: BAHMAN Cartagena * DATE OF OPERATION: 04/22/18 [facility] DATE OF : 66. SURGEON: Dr. Mccarthy. ANESTHESIOLOGIST: Dr. Jiang. ANESTHESIA: General. PRE-OP DIAGNOSIS: Right renal calculus. POST-OP DIAGNOSIS: Right renal calculus. OPERATIVE PROCEDURE: 1. Shockwave lithotripsy, right renal calculus. 2. Cystoscopy, right stent removal. COMPLICATIONS: None. POSTOPERATIVE CONDITION: Stable. INDICATIONS: Og Duggan is a 47-year-old gentleman, who had undergone an urgent stent insertion because of an obstructing calculus in the right proximal ureter. He is now being brought in for lithotripsy and stent removal. DESCRIPTION OF PROCEDURE: After induction of general anesthesia, the patient was placed on the lithotripsy table in supine position. The calculus, which was in the mid to lower pole area of the right kidney was localized using fluoroscopy, and shockwave lithotripsy was commenced at a rate of 60 shocks per minute. After the initial 300 shocks, there was a pause in lithotripsy for several minutes in an effort to minimize any potential trauma to the kidney. Lithotripsy was then resumed. Periodic imaging revealed good localization and fragmentation, and a total of 1600 shocks were delivered. The patient was placed in dorsal lithotomy position and cystoscopy was performed. The stent was seen exiting from the right ureter and was removed intact without difficulty. The bladder was emptied. The patient tolerated the procedure satisfactorily and was transferred back to the recovery area in stable condition. [id number]/[facility] #: [id number] MTDD
== END 2018-04-22 12:50 | disposition home or self-care (01) ==
LOC: OR 09:02
PROVIDERS: ATTEND Urology
DX: N20.0 Calculus of kidney (principal); G47.33 Obstructive sleep apnea (adult) (pediatric); E78.5 Hyperlipidemia, unspecified; E03.9 Hypothyroidism, unspecified; Z87.891 Personal history of nicotine dependence
CPT/HCPCS: 74018; J0696; J1100; J1885; J1940; J2250; J2405; J2704; J3010

== ENCOUNTER 2019-01-28 05:34 | Observation (INO) | payer OTHER ==
[~2019-01-28 05:34] MED LIST changes: -Buffered Lidocaine 0.9% SYRIN* 5 ML/SYR SYRINGE INTRADERM ONE; +Buffered Lidocaine 1% SYRIN* 1 ML/SYRINGE INTRADERM ONE; -DiMENhydriNATE IV* 50 MG/ML VIAL IV PUSH PRN; -Famotidine IV* 10 MG/ML 2 ML (20 mg) IV ONE; -HYDROmorphone INJ1* 1 MG/ML SYRINGE IV PRN; -Naloxone* 0.4 MG/ML 1 ML VIAL IV PRN; -oxyCODONE/Acetamin 5/325 MG* TAB PO PRN
[2019-01-28] MEDS ORDERED: Lactated Ringers 1000 ML Bag* 1,000 ML IV SCH (06:00)
[2019-01-28] MEDS ORDERED: Famotidine IV* 10 MG/ML 2 ML (20 mg) IV ONE (06:00)
[2019-01-28] MEDS ORDERED: Famotidine IV* 10 MG/ML 2 ML (20 mg) ONE (06:19)
[2019-01-28] MEDS ORDERED: Buffered Lidocaine 1% SYRIN* 1 ML/SYRINGE INTRADERM ONE (06:19)
[2019-01-28] MEDS ORDERED: ceFAZolin 2 GM in NS PREMIX(*) 2 GM/100 ML BAG IVPB ONE (06:19)
[2019-01-28] MEDS ORDERED: Lidocaine 1% w EPI 1:200,000* 30 ML VIAL ONE (06:38)
[2019-01-28] MEDS ORDERED: Bacitracin INJECTION* 50,000 UNITS ONE (06:38)
[2019-01-28] MEDS ORDERED: Thrombin 5,000 UNITS* 1 APPLIC KIT - topical use - TOPICAL ONE (06:38)
[2019-01-28] MEDS ORDERED: Artificial Tear OPHTH.OINT* 3.5 GM ONE (07:12)
[2019-01-28] MEDS ORDERED: Dexamethasone IV* 4 MG/ML 1 ML (4 MG) ONE (07:13)
[2019-01-28] MEDS ORDERED: Propofol* 10 MG/ML 20 ML BTL ONE (07:13)
[2019-01-28] MEDS ORDERED: Phenylephrine 10 MG/ML VIAL* 1 ML VIAL ONE (07:13)
[2019-01-28] MEDS ORDERED: Propofol* 0 MG/0 ML BTL ONE (07:13)
[2019-01-28] MEDS ORDERED: Ondansetron INJ* 2 MG/ML VIAL ONE (07:13)
[2019-01-28] MEDS ORDERED: fentaNYL* 50 MCG/ML 5 ML VIAL (250 MCG VIAL) ONE (07:13)
[2019-01-28] MEDS ORDERED: Lidocaine 2% PF * 5 ML VIAL ONE (07:13)
[2019-01-28] MEDS ORDERED: Midazolam* 1 MG/ML 10 ML VIAL (10 MG) ONE (07:14)
[2019-01-28] MEDS ORDERED: KETAMINE HCL* 50 MG/ML 10 ML VIAL ONE (07:14)
[2019-01-28] MEDS ORDERED: Remifentanil* 2 MG VIAL ONE ×3 (07:14→10:10)
[2019-01-28] MEDS ORDERED: Cisatracurium* 2 MG/ML MDV 5 ML ONE (07:14)
[2019-01-28 08:04] LABS: ABS Eosinophils 0.1 10^3/ul (0-0.6); ABS Lymphocytes 1.3 10^3/ul (1.0-4.8); ABS Monocytes 0.6 10^3/ul (0-0.8); Eosinophil % 1.1 %; Hematocrit 42 % (42-52); Hemoglobin 15.1 g/dL (14.0-18.0); Lymphocyte % 18.6 %; Mean Corpuscular HGB Conc 36 g/dL (31-36); Mean Corpuscular Hemoglobin 32 pg (27-31); Mean Corpuscular Volume 87 fL (80-94); Mean Platelet Volume 7.2 fL (7.4-10.4); Platelet Count 147 10^3/uL (150-450); Red Blood Count 4.77 10^6 /uL (4.18-5.48); Red Cell Distribution Width 15 % (10-15)
[2019-01-28] MEDS ORDERED: Succinylcholine* 20 MG/ML 10 ML VIAL ONE (08:14)
[2019-01-28] MEDS ORDERED: ceFAZolin VIAL(*) VIAL ONE (08:48)
[2019-01-28] MEDS ORDERED: Propofol* 500 MG/50 ML BTL ONE (08:53)
[2019-01-28] MEDS ORDERED: Propofol* 1,000 MG/100 ML BTL ONE (10:11)
[2019-01-28] MEDS ORDERED: Ondansetron INJ* 2 MG/ML VIAL IV PRN (11:41)
[2019-01-28] MEDS ORDERED: Naloxone* 0.4 MG/ML 1 ML VIAL IV PRN (11:41)
[2019-01-28] MEDS ORDERED: HYDROmorphone INJ1* 1 MG/ML SYRINGE IV PRN (11:41)
[2019-01-28] MEDS ORDERED: Magnesium Hydroxide LIQ* 30 ML UDC PO PRN (11:50)
[2019-01-28] MEDS ORDERED: fentaNYL* 50 MCG/ML 2 ML VIAL (100 MCG VIAL) ONE (11:59)
[2019-01-28] MEDS: fentaNYL* 50 MCG/ML 2 ML VIAL (100 MCG VIAL) IV PRN ×2 (12:02→12:18)
[2019-01-28] MEDS: Lactated Ringers 1000 ML Bag* 1,000 ML IVPB SCH (13:10)
[2019-01-28] MEDS: HYDROcodone/ACETAMIN 5-325 MG* 1 TAB PO PRN ×3 (14:55→20:47)
--- NOTE | 2019-01-28 15:00 | OP ---
DATE OF OPERATION: 01/28/19 - ROOM #331 DATE OF : 66 SURGEON: Vance Hernandez MD. ORE PUNCHER: Scarlett Ramirez PA-C. The case was done with the assistance of a surgical PA because of the complexity of the case. ANESTHESIA: General. PRE-OP DIAGNOSES: 1. Degenerative disk disease. 2. Herniated nucleus pulposus. POST-OP DIAGNOSES: 1. Degenerative disk disease. 2. Herniated nucleus pulposus. OPERATIVE PROCEDURE: The patient underwent anterior cervical diskectomy and fusion at C6-7 with PEEK interbody cage, local bone graft and DBX, and plates and screws with intraoperative monitoring. ESTIMATED BLOOD LOSS: 50 cc. COMPLICATIONS: None. INDICATIONS: The patient is a very pleasant 48-year-old gentleman with a history of a previous C5-6 anterior cervical diskectomy and fusion at the [facility] in [place] followed by a posterior cervical foraminotomy. The patient came with a diagnosis of right upper extremity symptoms and neck pain. He was found to have adjacent level disease with a large right C6-7 disk herniation. After failing conservative modalities, the patient was offered the option of anterior cervical diskectomy and fusion. After explaining to the patient and his in detail the expectations, limitations, and possible complications of the procedure with complications including but not limited to bleeding, infection, risk of injury to adjacent structures, paralysis, , need for additional procedures, anesthesia risk, stroke, blindness, cancer, instability, hardware failure, adjacent level disease, pseudoarthrosis, recurrent laryngeal nerve injury, [place] syndrome, need for hardware revision, hardware failure, injury to esophagus or trachea, need for tracheostomy or gastrostomy, need for prolonged ICU stay, need for prolonged hospitalization or rehabilitation, anesthesia risks, stroke, scar tissue formation, skin scars, and pulmonary embolus and DVTs, the patient was agreeable to proceed with surgery. The patient and his understood that the patient's condition may not improve and, in fact, may get worse after surgery and that he may need to have additional procedures in the future. He also understood that the operative plan may be modified according to the intraoperative findings and conditions and that the procedure may be abandoned or done in more than 1 stage. DESCRIPTION OF PROCEDURE: The patient was brought to the operating room and was placed under general anesthesia by the anesthesia team. He was carefully positioned supine on the Jovi table and all bony prominences were meticulously padded. His skin was prepped and draped in the standard fashion. After appropriate surgical pause and patient identification, a small incision over the right of the midline in a transverse fashion was marked on the skin with the use of intraoperative fluoroscopic imaging over the C6-7 disk level. The previous hardware was identified under fluoroscopy. The incision site was infiltrated with local anesthetic after infiltrating the skin with local anesthetic. The skin was incised with #10 surgical blade and the skin was undermined with tenotomy scissors and self-retaining retractor was introduced further into the field. The platysma was then gently identified and was dissected with the use of tenotomy scissors and Bovie cautery. The platysma was then gently undermined and the medial border of the sternocleidomastoid was identified. The plane between the medial border of the sternocleidomastoid and the midline structures was then developed with sharp and blunt dissection, and the anterior part of the spine was identified after incising the prevertebral fascia. The previous operative level was identified with the device as well as the longus colli muscles. The C6 and C7 vertebral bodies were then exposed and [place] pins were placed in each level. Self-retaining retractors were introduced further into the field as well as [place] retractor, and intraoperative fluoroscopic imaging confirmed appropriate surgical level. Standard diskectomy was performed at the C6-7 level after incising the spinous process with 15 surgical blade. The diskectomy was performed with the use of Kerrison rongeurs, Kerrison punches, curettes, and high-speed drill. End-plates were prepared and the posterior longitudinal ligament was then gently incised under microscopic magnification. Significant amount of disk herniation towards the right side of the spectrum on the operative MRI was encountered. At the end of the diskectomy, thecal sac was found to be patent as well as the foramina bilaterally. After confirmation of meticulous hemostasis and copious irrigation with meticulous inspection, the disk space was sized and the 9 mm height PEEK interbody cage from [employer] was inserted after being filled with locally harvested bone graft during the diskectomy. It was safe and used in this part of the procedure mixed with DBX. The [place] pins were then gently removed and 21 mm ZEVO [employer] plate was secured in place with titanium screws. Intraoperative fluoroscopic imaging confirmed excellent placement of all hardware. Then, the self-retaining retractors were removed and after confirmation of meticulous hemostasis and copious irrigation and meticulous inspection, the wound was closed by layers over a Fredy drain which was done through a separate stab wound incision; 2-0 interrupted Vicryl sutures were used to approximate the platysma and inverted interrupted 2-0 Vicryl suture was used to approximate the subcutaneous tissue. The skin was then covered with Dermabond. At the end of the procedure, all counts were reported to be correct. The patient remained hemodynamically stable throughout the case and intraoperative electrophysiological monitoring was stable throughout the case. The patient was then extubated and was transferred to recovery in excellent condition. The case was done with the assistance of a surgical PA because of the complexity of the case. [id number]/[facility] #: [id number] ANNETTE
--- NOTE | 2019-01-28 17:14 | PN ---
Subjective Date of Service: 01/28/19 Interval History: Consult Note ID 48 M HTN, HLD, hyothyrodisim recent ACDF for cervical neck pain who had acute onset CP s/p procedure started having "dull ache" around L side of chest wall at posterior aspect right after he woke up from surgery. Worse with movement, reproducible by pressing on chest wall and also has mild R sided chest pain when pressing the same. It does not radiate, there is no associated sx with it. NO GERD, no SOB, no N/V, he feels generally sore and uncomfortable all overall EKG: NSR with TWI in 3 UNCHANGED FROM PRIOR Labs:BMP and Trop ordered stat-Neg, K 5.3, hemolyzed. PMH: HTN HLD Hypothyroid Past Surg Hx: recent neck surgery FH: Non contributory Social Hx: Non smoker, non drinker, no illcits Objective Active Medications: Hydrocodone Bitart/Acetaminophen ([place] 5-325 Tab*) 2 tab PO Q4H PRN PRN Reason: marked pain Last Admin: 01/28/19 16:28 Dose: 1 tab Atorvastatin Calcium (Lipitor*) 20 mg PO QAM ÓSCAR Celecoxib (Celebrex Cap*) 200 mg PO QAM ÓSCAR Lactated Ringer's (Lactated Ringers 1000 Ml Bag*) 1,000 mls @ 125 mls/hr IV PER RATE [facility] Last Admin: 01/28/19 06:40 Dose: 125 mls/hr Lactated Ringer's (Lactated Ringers 1000 Ml Bag*) 1,000 mls @ 75 mls/hr IVPB .per rate [facility] Last Admin: 01/28/19 13:10 Dose: 75 mls/hr Lactobacillus Rhamnosus (Lactobacillus Acidophilus*) 1 tab PO QAM ÓSCAR Levothyroxine Sodium (Synthroid Tab*) 25 mcg PO DAILY@0600 ÓSCAR Losartan Potassium (Cozaar Tab*) 25 mg PO QAM ÓSCAR Magnesium Hydroxide (Milk Of Magnesia Liq*) 30 ml PO DAILY PRN PRN Reason: CONSTIPATION Vital Signs - 8 hr 01/28/19 01/28/19 01/28/19 11:38 11:40 11:46 Temperature 98.2 F Pulse Rate 98 96 92 Respiratory 16 19 16 Rate Blood Pressure 152/82 159/89 140/81 (mmHg) O2 Sat by Pulse 95 95 96 Oximetry 01/28/19 01/28/19 01/28/19 12:00 12:02 12:15 Temperature Pulse Rate 92 87 Respiratory 8 16 Rate Blood Pressure 140/78 130/73 (mmHg) O2 Sat by Pulse 97 97 Oximetry 01/28/19 01/28/19 01/28/19 12:18 12:30 12:45 Temperature 98.0 F Pulse Rate 89 80 Respiratory 16 16 Rate Blood Pressure 138/72 130/62 (mmHg) O2 Sat by Pulse 94 94 Oximetry 01/28/19 01/28/19 01/28/19 14:28 14:55 15:03 Temperature 98.4 F Pulse Rate 75 Respiratory 16 16 16 Rate Blood Pressure 120/80 (mmHg) O2 Sat by Pulse 94 Oximetry 01/28/19 16:28 Temperature Pulse Rate Respiratory 16 Rate Blood Pressure (mmHg) O2 Sat by Pulse Oximetry Oxygen Devices in Use Now: Simple Face Mask Appearance: Pleasant man NAD Eyes: No Scleral Icterus Ears/Nose/Mouth/Throat: NL Teeth, Lips, Gums Neck: NL Appearance and Movements; NL JVP, Trachea Midline Respiratory: Symmetrical Chest Expansion and Respiratory Effort, Clear to Auscultation Cardiovascular: NL Sounds; No Murmurs; No JVD, RRR Abdominal: NL Sounds; No Tenderness; No Distention, No Hepatosplenomegaly, - - Obese Lymphatic: No Cervical Adenopathy Extremities: No Edema Skin: No Rash or Ulcers Neurological: Alert and Oriented x 3 Result Diagrams: 01/28/19 07:48 01/28/19 17:21 Assess/Plan/Problems-Billing Assessment: 48 M HTN, HLD, hyothyrodisim recent ACDF for cervical neck pain who had acute onset CP s/p procedure, currently no e/o acute ischemia or active ACS, his chest pain is reproducible with palpation, he does have risk factors for ischemia and we will follow closely with you - Patient Problems (1) Chest pain Current Visit: Yes Status: Acute Code(s): R07.9 - CHEST PAIN, UNSPECIFIED SNOMED Code(s): 05198197 Comment: - EKG NSR, no signs of active ischemia - Troponin trend x 3 - Tele for 24 hours - Will treat as MSK for now and follow closely, will try Toradol and can try IV morphine over Hydroxone if needed (2) Hyperlipidemia Current Visit: No Status: Acute Code(s): E78.5 - HYPERLIPIDEMIA, UNSPECIFIED SNOMED Code(s): 42266013 Comment: - Continue atorvastatin. (3) Hypothyroidism Current Visit: No Status: Acute Code(s): E03.9 - HYPOTHYROIDISM, UNSPECIFIED SNOMED Code(s): 61897351 Comment: - Continue levothyroxine. (4) Sleep apnea Current Visit: No Status: Active Code(s): G47.30 - SLEEP APNEA, UNSPECIFIED SNOMED Code(s): 77887368 Comment: - Severe KOMAL; ASV CPAP user. Status and Disposition: Thank you for this consult we will follow with you.
[2019-01-28] MEDS ORDERED: Ketorolac INJ* 15 MG/ML 1 ML VIAL IV PUSH ONE (17:19)
[2019-01-28 17:56] LABS: Troponin I 0.01 ng/mL (<0.04)
[2019-01-28 18:04] LABS: Calcium 9.1 mg/dL (8.6-10.3)
[2019-01-28 18:05] LABS: Potassium 5.3 mmol/L (3.5-5.0)
[2019-01-28 18:10] LABS: BUN/Creatinine Ratio 19.1 (8-20); EGFR African American 102.8 (>60); EGFR Non-African American 84.9 (>60)
[2019-01-28] MEDS ORDERED: Morphine 4 MG/ML VIAL (1 ml) 4 MG/ML VIAL IV PRN (21:12)
[2019-01-29] MEDS: Lactated Ringers 1000 ML Bag* 1,000 ML IVPB SCH (02:42)
[2019-01-29] MEDS: Levothyroxine TAB* 25 MCG TAB PO SCH (05:32)
[2019-01-29] MEDS: HYDROcodone/ACETAMIN 5-325 MG* 1 TAB PO PRN ×2 (08:10→22:26)
[2019-01-29] MEDS: Losartan TAB* 25 MG PO SCH (08:10)
[2019-01-29] MEDS: Atorvastatin* 20 MG TAB PO SCH (08:10)
[2019-01-29] MEDS: celeCOXIB CAP* 200 MG PO SCH (08:10)
[2019-01-29] MEDS: Lactobacillus Acidophilus* 1 TAB PO SCH (08:10)
--- NOTE | 2019-01-29 10:36 | PN ---
Subjective Date of Service: 01/29/19 Interval History: Consult Note ID 48 M HTN, HLD, hyothyrodisim recent ACDF for cervical neck pain who had acute onset CP s/p procedure Started having "dull ache" around L side of chest wall at posterior aspect right after he woke up from surgery. Pain has improved with MSK treatment EKG: NSR with TWI in 3 UNCHANGED FROM PRIOR, Trop x 3 negative, effectively r/o ACS PMH: HTN HLD Hypothyroid Past Surg Hx: recent neck surgery (hx of surgery x 3) FH: Non contributory Social Hx: Non smoker, non drinker, no illcits Objective Active Medications: Acetaminophen (Tylenol Tab*) 650 mg PO Q6H PRN PRN Reason: FEVER Hydrocodone Bitart/Acetaminophen ([place] 5-325 Tab*) 2 tab PO Q4H PRN PRN Reason: marked pain Last Admin: 01/29/19 08:10 Dose: 2 tab Atorvastatin Calcium (Lipitor*) 20 mg PO [facility] Last Admin: 01/29/19 08:10 Dose: 20 mg Celecoxib (Celebrex Cap*) [facility] [place] Last Admin: 01/29/19 08:10 Dose: 200 mg Lactated Ringer's (Lactated Ringers 1000 Ml Bag*) 1,000 mls @ 75 mls/hr IVPB .per rate [facility] Last Admin: 01/29/19 02:42 Dose: 75 mls/hr Lactobacillus Rhamnosus (Lactobacillus Acidophilus*) [facility] [place] Last Admin: 01/29/19 08:10 Dose: 1 tab Levothyroxine Sodium (Synthroid Tab*) 25 mcg PO DAILY@0600 [facility] Last Admin: 01/29/19 05:32 Dose: 25 mcg Losartan Potassium (Cozaar Tab*) [facility] [place] Last Admin: 01/29/19 08:10 Dose: 25 mg Magnesium Hydroxide (Milk Of Magnesia Liq*) 30 ml PO DAILY PRN PRN Reason: CONSTIPATION Morphine Sulfate (Morphine 4 Mg/Ml Vial (1 Ml)) 4 mg IV Q4H PRN PRN Reason: PAIN - MILD Vital Signs - 8 hr 01/29/19 01/29/19 01/29/19 03:01 07:23 07:40 Temperature 97.6 F 98.2 F Pulse Rate 67 71 Respiratory 16 18 Rate Blood Pressure 120/58 137/65 (mmHg) O2 Sat by Pulse 98 96 98 Oximetry 01/29/19 08:10 Temperature Pulse Rate Respiratory 18 Rate Blood Pressure (mmHg) O2 Sat by Pulse Oximetry Oxygen Devices in Use Now: Simple Face Mask Appearance: Pleasant man sitting up in chair NAD Eyes: No Scleral Icterus Ears/Nose/Mouth/Throat: NL Teeth, Lips, Gums Neck: - - [place] J Respiratory: Clear to Auscultation Cardiovascular: NL Sounds; No Murmurs; No JVD, RRR Abdominal: NL Sounds; No Tenderness; No Distention, No Hepatosplenomegaly Lymphatic: No Cervical Adenopathy Extremities: No Edema Skin: No Rash or Ulcers Result Diagrams: 01/28/19 07:48 01/28/19 17:21 Assess/Plan/Problems-Billing Assessment: 48 M HTN, HLD, hyothyrodisim recent ACDF for cervical neck pain who had acute onset CP s/p procedure, currently no e/o acute ischemia or active ACS, his chest pain is reproducible with palpation and is most c/w MSK in nature. - Patient Problems (1) Chest pain Current Visit: Yes Status: Acute Code(s): R07.9 - CHEST PAIN, UNSPECIFIED SNOMED Code(s): 71715032 Comment: - EKG NSR, no signs of active ischemia - Troponin x 3 neg - Tele may be d/c, reviewed, unremarkable - Continue to treat as MSK (2) Hyperlipidemia Current Visit: No Status: Acute Code(s): E78.5 - HYPERLIPIDEMIA, UNSPECIFIED SNOMED Code(s): 06414756 Comment: - Continue atorvastatin. (3) Hypothyroidism Current Visit: No Status: Acute Code(s): E03.9 - HYPOTHYROIDISM, UNSPECIFIED SNOMED Code(s): 68080580 Comment: - Continue levothyroxine. (4) Sleep apnea Current Visit: No Status: Active Code(s): G47.30 - SLEEP APNEA, UNSPECIFIED SNOMED Code(s): 43749275 Comment: - Severe KOMAL; ASV CPAP user. Status and Disposition: Pt improved from a CP standpoint, we will sign off for now, please don't hesitate to reconsult if needed, we have discontinued our orders.
[2019-01-29] MEDS: Acetaminophen TAB* 325 MG PO PRN ×2 (14:04→20:00)
--- NOTE | 2019-01-29 19:41 | PN ---
Progress Note - Progress Note Date of Service: 01/29/19 SOAP: Subjective: 48 y/o s/p ACDF of C6/C& POD # 1 patient c/o of acute yesterday, medicine consulted to evaluate, his EKG was normal and cardiac markers were negative. He indicates having pain on the right and left side that is reproducible. This morning patient admits to having some pain with swallowing and was experiencing some nausea. He has notice that his right UPE radicular has no improvement with strength. Also has continued numbness in the right hand. JUSTO drain put out 38 over night. Objective: Patient sitting up right in chair Miam J collar on, has mild discomfort. Nuero: GCS 15, A&O x3 CN II - XII grossly intact, decreased right UPE 4/5, left 5/5,RLE motor strength 4/5, left 5/5 Derm Incision C/D/I Assessment: 48 y/o male post ACDF of C6/C7, has improvement of right radicular pain, acute chest pain does not appear to be ACLS related. He is recovering well. Post op X rays completed shows appropriately placement of hardware. Plan: D/C draned this morning Pain control as needed Soft diet continue to follow medicine recommendations Possible D/C in the morning.
[2019-01-30] MEDS: Levothyroxine TAB* 25 MCG TAB PO SCH (05:29)
[2019-01-30] MEDS: HYDROcodone/ACETAMIN 5-325 MG* 1 TAB PO PRN ×2 (05:32→09:55)
[2019-01-30 08:13] VITALS: BP 128/57
[2019-01-30] MEDS: Atorvastatin* 20 MG TAB PO SCH (08:15)
[2019-01-30] MEDS: celeCOXIB CAP* 200 MG PO SCH (08:15)
[2019-01-30] MEDS: Losartan TAB* 25 MG PO SCH (08:16)
[2019-01-30] MEDS: Lactobacillus Acidophilus* 1 TAB PO SCH (08:16)
--- NOTE | 2019-01-30 08:48 | PN ---
Progress Note - Progress Note Date of Service: 01/30/19 SOAP: Subjective: [] 48 y/o male post ACDF at C6/C7 no acute changes over night, patient tolerating orals, has ambulating with out issue. Patient is stable and feels ready to go home. Objective: [] Vital Signs - 12 hr Temp Pulse Resp BP Pulse Ox 01/30/19 08:13 98 F 69 18 128/57 95 01/30/19 07:50 18 01/30/19 05:32 18 01/30/19 05:30 18 01/30/19 03:20 97.5 F 64 16 126/61 98 01/29/19 23:33 97.8 F 59 16 120/55 97 01/29/19 22:26 17 Physical exam: Patient sitting up right in chair Miam J collar on, has mild discomfort. Nuero: GCS 15, A&O x3 CN II - XII grossly intact, decreased right UPE 4/5, left 5/5,RLE motor strength 4/5, left 5/5 Derm Incision C/D/I Assessment: 48 y/o male post ACDF doing well, has been stable overnight ready for dischrage. Plan: D/C home Follow up with [facility] 1 week.
== END 2019-01-30 10:10 | disposition home or self-care (01) ==
LOC: OR 05:34 → SSU 11:50
PROVIDERS: ADMIT Neurological Surgery; ATTEND Neurological Surgery
DX: M50.123 Cervical disc disorder at C6-C7 level with radiculopathy (principal); Z87.891 Personal history of nicotine dependence; M54.2 Cervicalgia; I10 Essential (primary) hypertension; E03.9 Hypothyroidism, unspecified; E78.5 Hyperlipidemia, unspecified; G47.30 Sleep apnea, unspecified
CPT/HCPCS: 36415; 72040; 76000; 80048; 84484; 85025; 93005; 96374; 96375; A9270-GY; C1713; C1776; C9359; G0378; J0330; J0690; J1100; J1885; J2001; J2250; J2405; J2704; J3010

== ENCOUNTER 2019-07-16 10:37 | Day surgery (SDC) | payer OTHER ==
[~2019-07-16 10:37] MED LIST changes: +Famotidine IV* 10 MG/ML 2 ML (20 mg) IV ONE; +Lactated Ringers 1000 ML Bag* 1,000 ML IV SCH
[2019-07-16] MEDS ORDERED: Famotidine IV* 10 MG/ML 2 ML (20 mg) ONE (11:10)
[2019-07-16] MEDS ORDERED: ceFAZolin 1 GM ADVAN(*) 1 GM ADDV.VIAL IVPB ONE (11:10)
[2019-07-16] MEDS ORDERED: ceFAZolin 2 GM in NS PREMIX(*) 2 GM/100 ML BAG IVPB ONE (11:10)
[2019-07-16] MEDS ORDERED: Midazolam* 1 MG/ML 5 ML VIAL (5 MG) ONE (11:43)
[2019-07-16] MEDS ORDERED: Lidocaine 1% MPF ** 5 ML VIAL ONE (13:12)
[2019-07-16] MEDS ORDERED: ROPIVACAINE 5 MG/ML 30 ML BTL (0.5%) ONE (13:12)
[2019-07-16] MEDS ORDERED: fentaNYL* 50 MCG/ML 2 ML VIAL (100 MCG VIAL) ONE (13:52)
[2019-07-16] MEDS ORDERED: DiMENhydriNATE IV* 50 MG/ML VIAL ONE (14:19)
[2019-07-16] MEDS ORDERED: Dexamethasone IV* 4 MG/ML 1 ML (4 MG) ONE (14:19)
[2019-07-16] MEDS ORDERED: Ketorolac INJ* 30 MG/ML 1 ML VIAL ONE (14:19)
[2019-07-16] MEDS ORDERED: Lidocaine 2% PF * 5 ML VIAL ONE (14:19)
[2019-07-16] MEDS ORDERED: Propofol* 10 MG/ML 20 ML BTL ONE (14:19)
[2019-07-16] MEDS ORDERED: Ondansetron INJ* 2 MG/ML VIAL ONE (14:19)
[2019-07-16] MEDS ORDERED: DiMENhydriNATE IV* 50 MG/ML VIAL IV PUSH PRN (15:04)
[2019-07-16] MEDS ORDERED: Acetaminophen TAB* 325 MG PO PRN (15:04)
[2019-07-16] MEDS ORDERED: Naloxone* 0.4 MG/ML 1 ML VIAL IV PRN (15:04)
[2019-07-16] MEDS ORDERED: oxyCODONE TAB* 5 MG TAB PO PRN (15:04)
--- NOTE | 2019-07-16 22:40 | OP ---
CC: PCP; Dr. Hernandez * DATE OF OPERATION: 07/16/19 - SDS DATE OF : 66 SURGEON: Tariq Maddox MD WORKERS COMPENSATION CLAIMS ADJUSTER: BAHMAN Merrill. An assistant women's basketball coach was needed for the entirety of the case to help with positioning, retraction, and was utilized throughout all portions of the case. ANESTHESIOLOGIST: Dr. Jiang. ANESTHESIA: General interscalene block. PRE-OP DIAGNOSIS: Right shoulder impingement with possible partial thickness tear and bicipital tendonitis SLAP tear. POST-OP DIAGNOSIS: Right shoulder impingement with possible partial thickness tear and bicipital tendonitis SLAP tear. OPERATIVE PROCEDURE: Right shoulder arthroscopy with: 1. Extensive glenohumeral debridement including biceps tenotomy. 2. Subacromial decompression with acromioplasty. 3. Rotator cuff repair using Regeneten patch, size medium. COMPLICATIONS: None. ESTIMATED BLOOD LOSS: Minimal. IMPLANTS: Regeneten patch, size medium with the appropriate tendon and bone erin. INDICATIONS: Og Duggan is a 49-year-old male who has had persistent shoulder pain as well as neck pain. He did have his neck taken care of. He still has persistent shoulder pain. He had failed conservative management including physical therapy, antiinflammatories, ice, heat, and injection and therapy he has elected to proceed with surgical treatment. Risks and benefits were discussed in length with the patient included but not limited to bleeding; infection; damage to nerves, vessels, surrounding structures; wound nonhealing; persistent pain; need for surgery; scaring; stiffness; incomplete relief of symptoms; risks of anesthesia, and risk of DVT. He has elected to proceed. DESCRIPTION OF PROCEDURE: The patient was greeted in the preoperative area by the attending surgeon. Correct extremity was marked. Consent was confirmed. The patient underwent interscalene nerve block by the anesthesiologist after which he was brought back to the operating suite, placed in a supine position on the operating room table and underwent general anesthesia and LMA intubation. After which, he was placed in the left lateral decubitus position with all bony prominences padded and secured with peg board. The right arm was draped unsterile with initially 10 and then 15 pounds of traction due to his size. The right shoulder was then prepped and draped in the usual sterile fashion beginning with chlorhexidine soap, scrub, and alcohol wipe and a final prep with ChloraPrep. After appropriate surgical pause indicating site, side, procedure, administration of antibiotics, a standard posterolateral portal was made sharply with an 11 blade. Scope was introduced into the joint. The joint was examined, there was abundant synovitis as well as SLAP type II tear. The subscap was intact. The undersurface of the supraspinatus was intact. The remainder of the joint had grade 0 to 1 changes. The inferior recess was intact. The anterior portal was made in an outside-in fashion. Shaver was used to debride back the unstable anterior, posterior, and superior labrum. Biceps was then tenotomized. Once the intraarticular work was completed, attention was directed to the subacromial space. With the scope positioned in the subacromial space, lateral portal was made in an outside-in fashion. Shaver was used to debride back the abundant synovitis that was present. Electrocautery device was used to maintain hemostasis as there was a significant amount of synovitis that was present. The undersurface of the acromion was skeletonized using electrocautery device. A small anterolateral spur was identified and then a 4-0 oval melia was then used to do an acromioplasty. CA ligament was released, attention was directed to the cuff. The cuff looked for the most part intact, although there was a small area of partial tearing. Decision was made to treat this with a Regeneten patch as this could be the source of his problem. Size medium Regeneten patch was then brought to the field and I placed it under arthroscopic direct visualization. Then through a separate stab incision, tendon erin were then placed to secure the graft medially and then laterally PEEK erin were used to secure it lateral. Final images were obtained. The shoulder was taken through gentle range of motion and found to be stable. The wounds were copiously irrigated with sterile saline. The portals were closed with 3-0 nylon. Sterile dressings were applied. A Cryo/Cuff as well as regular sling. He was awoken from anesthesia and transferred to PACU in stable condition. POSTOPERATIVE PLAN: He will be nonweightbearing. He will start range of motion. Wean out of sling in 2 to 3 days. Discharged on pain medication. DVT prophylaxis was considered but deferred due to no pervious personal or family history. I will see the patient back in 10 to 14 days. [id number]/[facility] #: [id number] MTDArthur
[2019-07-18 21:24] VITALS: BP 161/136
== END 2019-07-18 21:25 | disposition home or self-care (01) ==
LOC: OR 10:37
PROVIDERS: ATTEND Orthopaedic Surgery
DX: M75.41 Impingement syndrome of right shoulder (principal); M75.21 Bicipital tendinitis, right shoulder; M75.111 Incomplete rotator cuff tear or rupture of right shoulder, not specified as traumatic; G89.18 Other acute postprocedural pain; I10 Essential (primary) hypertension; E78.5 Hyperlipidemia, unspecified; G47.33 Obstructive sleep apnea (adult) (pediatric); J45.909 Unspecified asthma, uncomplicated; E03.9 Hypothyroidism, unspecified
CPT/HCPCS: C1713; J0690; J1100; J1240; J1885; J2250; J2405; J2704; J2795; J3010

== ENCOUNTER 2019-08-18 10:30 | Emergency (ER) | payer OTHER ==
--- OUTSIDE RECORDS SUMMARY | 2019-08-18 10:50 | XMS REPORT | Continuity of Care Document ---
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 Onset: 01/01/2017 intervertebral disc Kidney stone Melonie Dee M.D. Onset: 04/04/2018 Hypothyroidism Melonie Dee M.D. Onset: 04/04/2018 Hyperlipidemia Melonie Dee M.D. Onset: 04/04/2018 Unspecified Escherichia coli [EZe Dee M.D. Onset: 04/05/2018 coli] as the cause of diseases classified elsewhere Urinary tract infectious disease Melonie Dee M.D. Onset: 04/05/2018 Sprain of hip Nancy Daniel M.D. Onset: 11/06/2018 Disorder of shoulder Tariq Maddox MD Onset: 01/07/2019 Strain of muscle of long head of Tariq Maddox MD Onset: 01/07/2019 biceps brachii Strain of muscle(s) and tendon(s) of Tariq Maddox MD Onset: 06/10/2019 the rotator cuff of right shoulder, subsequent encounter Bicipital tenosynovitis Tariq Maddox MD Onset: 07/10/2019 Social History Type Date Description Comments Sex Unknown Tobacco Use Start: Unknown End: Former Cigarette Smoker Unknown Smoking Status Reviewed: 07/31/19 Former Cigarette Smoker ETOH Use Rarely consumes alcohol Recreational Drug Use Denies Drug Use Tobacco Use Start: Unknown End: Patient is a former smoker Unknown Exercise Type/Frequency Exercises rarely Allergies, Adverse Reactions, Alerts Description No Known Drug Allergies Medications Active Medications SIG Qnty Indications Ordering Provider Date Percocet 1 tabs by mouth 18tabs Tariq Maddox MD 07/16/2019 5-325mg Tablets every 4-6 hours as needed post op pain. MDD 6 Modafinil 1/2-1 tab in am, 30tabs G47.14 Tamiko Maldonado, 07/11/2019 200mg Tablets if needed as DNP, RN, REIN[employer]CING BAR SETTER-BC directed Hydrocodone 1 tab by mouth 28tabs Vassilios 02/28/2019 Bitartrate/Acetaminoph every 6 hours as MD David en needed pain 5-325mg Tablets Levothyroxine Sodium 1 by mouth every Unknown 07/12/2015 day 100mcg Solution Rec Lipitor one tab by mouth Unknown 20mg Tablets every night at bedtime Probiotic daily Unknown Celecoxib Take One Capsule Unknown 200mg Capsules By Mouth Every Day For Back Pain Losartan Lis Pool 25mg S., PA Tablets Medications Administered in Office Medication SIG Qnty Indications Ordering Provider Date Triamcinolone (Kenalog) Tariq Maddox MD 05/20/2019 Injection Triamcinolone (Kenalog) Tariq Maddox MD 01/07/2019 Injection Immunizations Description No Information Available Vital Signs Date Vital Result Comment 07/31/2019 2:13pm Height 70 inches 5'10" Weight 270.00 lb Heart Rate 81 /min BP Systolic 120 mmHg BP Diastolic 62 mmHg Respiratory Rate 16 /min Body Temperature 97.7 F Pain Level 5 BMI (Body Mass Index) 38.7 kg/m2 07/11/2019 7:55am Height 70 inches 5'10" Weight 272.00 lb Heart Rate 65 /min BP Systolic 124 mmHg BP Diastolic 68 mmHg O2 % BldC Oximetry 97 % BMI (Body Mass Index) 39.0 kg/m2 Results Description No Information Available Procedures Date Code Description Status 07/16/2019 58229 Arthroscopy Shoulder,W/Rotator Cuff Repair Completed 07/16/2019 52768 Arthroscopy Shoulder,W/Rotator Cuff Repair Completed 07/16/2019 77974 Arthroscopy Shoulder,W/Rotator Cuff Repair Completed 07/16/2019 45221 Arthroscopy,Shoulder Decompression Of Subacromial Space Completed W/Acromio 07/16/2019 02705 Arthroscopy,Shoulder Decompression Of Subacromial Space Completed W/Acromio 07/16/2019 87782 Arthroscopy,Shoulder Decompression Of Subacromial Space Completed W/Acromio 05/20/201940937 Inject/Drain Joint/Bursa Major W/O US Completed Medical Devices Description No Information Available Encounters Type Date Location Provider Dx Diagnosis Office Visit 07/11/2019 Pulmonology And Tamiko Maldonado, G47.37 Central sleep 8:15a [facility] RN, REINFORCING BAR SETTER- apnea in Risk Control Manager conditions classified elsewhere G47.33 Obstructive sleep apnea (adult) (pediatric) G47.14 Hypersomnia due to medical condition Office Visit 06/10/2019 2:30p Stewart Stallings.41 Impingement at Donal MARKS syndrome of right shoulder M75.21 Bicipital tendinitis, right shoulder Office Visit 05/20/2019 10:30a Stewart Stallings.[place] Impingement at Donal MARKS syndrome of right shoulder S46.111D Strain of musc/fasc/tend long hd bicep, right arm, subs Office Visit 04/10/2019 8:15a Stewart Stallings.41 Impingement at Donal MARKS syndrome of right shoulder S46.111D Strain of musc/fasc/tend long hd bicep, right arm, subs Office Visit 02/25/2019 3:15p Stewart Stallings.41 Impingement at Donal MARKS syndrome of right shoulder S46.111D Strain of musc/fasc/tend long hd bicep, right arm, subs M75.21 Bicipital tendinitis, right shoulder Assessments Date Code Description Provider 07/31/2019 M75.111 Incomplete rotator cuff tear or Tariq Maddox MD rupture of right shoulder, not specified as traumatic 07/31/2019 M75.41 Impingement syndrome of right Tariq Maddox MD shoulder 07/31/2019 S43.431A Superior glenoid labrum lesion of Tariq Maddox MD right shoulder, initial encounter 07/16/2019 S43.431A Superior glenoid labrum lesion of RONEL Merrill right shoulder, initial encounter 07/16/2019 M75.41 Impingement syndrome of right Tammie Brewer PA-C shoulder 07/16/2019 M75.111 Incomplete rotator cuff tear or Tammie Brewer PA-C rupture of right shoulder, not specified as traumatic 07/16/2019 S43.431A Superior glenoid labrum lesion of Tariq Maddox MD right shoulder, initial encounter 07/16/2019 M75.41 Impingement syndrome of right Tariq Maddox MD shoulder 07/16/2019 M75.111 Incomplete rotator cuff tear or Tariq Maddox MD rupture of right shoulder, not specified as traumatic 07/11/2019 G47.37 Central sleep apnea in conditions Tamiko Maldonado DNP, RN , classified elsewhere [facility]- 07/11/2019 G47.33 Obstructive sleep apnea (adult) Tamiko Maldonado DNP, RN, (pediatric) [facility]- 07/11/2019 G47.14 Hypersomnia due to medical Tamiko Maldonado DNP, RN, condition [facility] 07/10/2019 M75.41 Impingement syndrome of right Tariq Maddox MD shoulder 07/10/2019 M75.21 Bicipital tendinitis, right Tariq Maddox MD shoulder 06/10/2019 M75.41 Impingement syndrome of right Tariq Maddox MD shoulder 06/10/2019 M75.21 Bicipital tendinitis, right Tariq Maddox MD shoulder 05/20/2019 M75.41 Impingement syndrome of right Tariq Maddox MD shoulder 05/20/2019 S46.111D Strain of muscle, fascia and tendon Tariq Maddox MD of long head of biceps, right arm, subsequent encounter 04/30/2019 Z48.89 Encounter for other specified BAHMAN Guerra surgical aftercare 04/10/2019 M75.41 Impingement syndrome of right Tariq Maddox MD shoulder 04/10/2019 S46.111D Strain of muscle, fascia and tendon Tariq Maddox MD of long head of biceps, right arm, subsequent encounter 02/28/2019 M50.123 Cervical disc disorder at C6-C7 BAHMAN Guerra level with radiculopathy 02/25/2019 M75.41 Impingement syndrome of right Tariq Maddox MD shoulder 02/25/2019 S46.111D Strain of muscle, fascia and tendon Tariq Maddox MD of long head of biceps, right arm, subsequent encounter 02/25/2019 M75.21 Bicipital tendinitis, right Tariq Maddox MD shoulder 02/03/2019 Z48.89 Encounter for other specified Vance Hernandez MD surgical aftercare 01/29/2019 R07.9 Chest pain, unspecified Karin Guan MD 01/29/2019 E78.5 Hyperlipidemia, unspecified Karin Guan MD 01/29/2019 E03.9 Hypothyroidism, unspecified Karin Guan MD 01/29/2019 G47.30 Sleep apnea, unspecified Karin Guan MD Plan of Treatment Future Appointment(s):08/29/2019 8:30 am - Tariq Maddox MD at [facility] at [id number]/01/2019 1:30 pm - Vance Hernandez MD at [facility]08/19/2019 9:00 am - Tamiko Maldonado DNP, RN, REINFORCING BAR SETTER- BC at [facility]07/31/2019 - Tariq Maddox MDM75.111 Incomplete rotator cuff tear or rupture of right shoulder, not specified as traumaticFollow up:Follow up: 4-5 vktfzI61.41 Impingement syndrome of right gjgyremfT53.431A Superior glenoid labrum lesion of right shoulder, initial encounter Functional Status Description No Information Available Mental Status Description No Information Available Referrals Description No Information Available
--- OUTSIDE RECORDS SUMMARY | 2019-08-18 10:50 | XMS REPORT | Continuity of Care Document ---
:1970 External Reference #:[id number] Author Name Mildred Cartagena (transmitted by agent of provider Matthias Singer) Address [address] [place] [id number] Care Team Providers Name Role Phone HCP given Care Team Information Circular Shear Operator Unavailable Daquan Mccarthy MD - Urology Care Team Information Circular Shear Operator [phone] Vance Hernandez Md - Care Team Information Circular Shear Operator [phone] Neurological Surgery Problems Active Problems Provider Date Diverticular disease of colon Kemal Munoz M.D. Onset: 01/17/2016 History of calculus of kidney Kemal Munoz M.D. Onset: 01/17/2016 Note: sees Dr Mccarthy Chronic pain syndrome Kemal Munoz M.D. Onset: 01/17/2000 Note: in genital area in scrotum in testes bilat follows with Dr Mccarthy Pure hypercholesterolemia Kemal Munoz M.D. Onset: 02/25/2016 Impaired fasting glycaemia Kemal Munoz M.D. Onset: 02/25/2016 Overweight Kemal Munoz M.D. Onset: 02/25/2016 Hypersomnia with sleep apnea Kemal Munoz M.D. Onset: 02/25/2016 Hypothyroidism Kemal Munoz M.D. Onset: 12/04/2016 Social History Type Date Description Comments Sex Unknown Cigarette Use 01/17/2016 Negative For Denies Cigarette Use Tobacco Use Start: Unknown End: Former Cigarette Smoker quit in 1997 smoked Unknown 12 years 1-2 ppd Smoking Status Reviewed: 07/10/19 Former Cigarette Smoker quit in 1997 smoked 12 years 1-2 ppd Tobacco Use Start: Unknown End: Patient is a former Unknown smoker Exercise Does not exercise but at work does Type/Frequency 27,000 steps a day Allergies, Adverse Reactions, Alerts Description No Known Drug Allergies Medications Active Medications SIG Qnty Indications Ordering Date Provider Gabapentin take one capsule 90caps M79.672 Matthias Singer, 05/03/2019 400mg Capsules by mouth three D.O. times a day Celecoxib 1 tab once a day 90caps David Higginbotham, 02/07/2019 200mg Capsules for back pain M.D. Losartan Potassium 1 tablet daily 90tabs I10 David Higginbotham, 01/20/2019 25mg for high blood M.D. Tablets pressure Hydrocodone-Acetaminop 1 every 4-6 hours 60tabs David Higginbotham, 2018 hen for pain M.D. 7.5-325mg Tablets Meclizine HCL take 1 tablet by 90tabs H81.11 Unknown 10/03/2017 25mg mouth every 8 Tablets hours as needed dizziness Levothyroxine Sodium 1 every day 20 90tabs David Higginbotham, 10/20/2015 minutes before M.D. 25mcg Tablets breakfast Atorvastatin Calcium Take 1 Tablet 90tabs E78.0 Matthias Singer, 07/22/2015 20mg Daily D.O. Tablets History Medications Gabapentin take one capsule 90caps M79.672 David Higginbotham, 04/21/2019 - 100mg by mouth three M.D. 05/03/2019 Capsules times a day for foot pain and numbness Cephalexin 1 tab by mouth 30tabs L08.9 David Higginbotham, 02/15/2019 - 500mg 3x/day x10 days; M.D. 04/20/2019 Tablets for skin infection Medications Administered in Office Medication SIG Qnty Indications Ordering Provider Date Toradol 15MG. Lis Murphy P.A. 04/26/2017 Injection SC/Im Injections Lis Murphy P.Yudith. 04/26/2017 Injection Immunizations CPT Code Status Date Vaccine Reaction Lot # U-Flu Given 04/18/2019 Influenza,Unspecified at drug store U-Flu Given 04/04/2018 Influenza,Unspecified 35076 Given 06/19/2017 Influenza Virus Vaccine, [id number] Quadrivalent, Split, Preservative Free 52191 Given 12/04/2016 Adacel or Boostrix, TDaP [id number] Vital Signs Date Vital Result Comment 07/10/2019 3:42pm BP Systolic 132 mmHg BP Diastolic 84 mmHg Weight 272.00 lb 04/21/2019 3:39pm BP Systolic 120 mmHg BP Diastolic 80 mmHg Weight 271.00 lb Results Test Acquired Date Facility Test Result H/L Range Note Lipid Profile 07/11/2019 [facility] Triglycerides 111 mg/dL 1 (Trig/Chol/HDL) [phone] Cholesterol 137 mg/dL 2 HDL Cholesterol 38.9 mg/dL 3 LDL Cholesterol 76 mg/dL 4 CBC Auto Diff 07/11/2019 [facility] White Blood 7.3 10^3/uL Normal 3.5-10.8 [phone] Count Red Blood Count 4.99 10^6/uL Normal 4.18-5.48 Hemoglobin 15.6 g/dL Normal 14.0-18.0 Hematocrit 44 % Normal 42-52 Mean Corpuscular Volume 88 fL Normal 80-94 Mean Corpuscular Hemoglobin 31 pg Normal 27-31 Mean Corpuscular HGB Conc 36 g/dL Normal 31-36 Red Cell Distribution Width 14 % Normal 10-15 Platelet Count 159 10^3/uL Normal 150-450 Mean Platelet Volume 7.7 fL Normal 7.4-10.4 Abs Neutrophils 4.9 10^3/uL Normal 1.5-7.7 Abs Lymphocytes 1.5 10^3/uL Normal 1.0-4.8 Abs Monocytes 0.6 10^3/uL Normal 0-0.8 Abs Eosinophils 0.2 10^3/uL Normal 0-0.6 Abs Basophils 0.0 10^3/uL Normal 0-0.2 Abs Nucleated RBC 0.0 10^3/uL Granulocyte % 67.4 % Lymphocyte % 20.7 % Monocyte % 8.8 % Eosinophil % 2.5 % Basophil % 0.6 % Nucleated Red Blood Cells % 0.0 Comp Metabolic Panel 07/11/2019 [facility] Sodium 140 mmol/L Normal 135-145 [phone] Potassium 4.1 mmol/L Normal 3.5-5.0 Chloride 104 mmol/L Normal 101-111 Co2 Carbon Dioxide 30 mmol/L Normal 22-32 Anion Gap 6 mmol/L Normal 2-11 Glucose 92 mg/dL Normal 70-100 Blood Urea Nitrogen 19 mg/dL Normal 6-24 Creatinine 0.89 mg/dL Normal 0.67-1.17 BUN/Creatinine Ratio 21.3 High 8-20 Calcium 9.7 mg/dL Normal 8.6-10.3 Total Protein 6.7 g/dL Normal 6.4-8.9 Albumin 4.5 g/dL Normal 3.2-5.2 Globulin 2.2 g/dL Normal 2-4 Albumin/Globulin Ratio 2.0 Normal 1-3 Total Bilirubin 0.80 mg/dL Normal 0.2-1.0 Alkaline Phosphatase 113 U/L High 34-104 Alt 42 U/L Normal 7-52 Ast 16 U/L Normal 13-39 Egfr Non- 90.1 >60 Egfr 109.0 >60 5 Laboratory test 07/11/2019 [facility] TSH (Thyroid 3.31 mcIU/mL Normal 0.34-5.60 finding [phone] Stim Horm) Ua Inhouse 07/10/2019 In House Ua Glucose - 6 Ua Bilirubin - Ua Ketones - Ua Specific [place] 1.030 Ua Blood - Ua PH 5.0 Ua Protein - Ua Urobilinogen - Ua Nitrite - Ua Leukocytes - Laboratory test 04/22/2019 [facility] D Dimer < 200 Normal Less 7 finding [phone] Quantitative ng/mL Than 230 Laboratory test 04/21/2019 In House Glucose 102 finding Quantitative Hemoglobin A1c 5.0 CBC Auto Diff 01/28/2019 [facility] White Blood 7.0 10^3/uL Normal 3.5-10.8 [phone] Count Red Blood Count 4.77 10^6/uL Normal 4.18-5.48 Hemoglobin 15.1 g/dL Normal 14.0-18.0 Hematocrit 42 % Normal 42-52 Mean Corpuscular Volume 87 fL Normal 80-94 Mean Corpuscular Hemoglobin 32 pg High 27-31 Mean Corpuscular HGB Conc 36 g/dL Normal 31-36 Red Cell Distribution Width 15 % Normal 10-15 Platelet Count 147 10^3/uL Low 150-450 Mean Platelet Volume 7.2 fL Low 7.4-10.4 Abs Neutrophils 5.0 10^3/uL Normal 1.5-7.7 Abs Lymphocytes 1.3 10^3/uL Normal 1.0-4.8 Abs Monocytes 0.6 10^3/uL Normal 0-0.8 Abs Eosinophils 0.1 10^3/uL Normal 0-0.6 Abs Basophils 0.0 10^3/uL Normal 0-0.2 Abs Nucleated RBC 0.0 10^3/uL Granulocyte % 71.3 % Lymphocyte % 18.6 % Monocyte % 8.4 % Eosinophil % 1.1 % Basophil % 0.6 % Nucleated Red Blood Cells % 0.0 Laboratory test 01/20/2019 [facility] Partial 32.4 seconds Normal 26.0-38.0 8 finding [phone] Thrombo Time PTT Urinalysis 01/16/2019 [facility] Urine Color Yellow Profile [phone] Urine Appearance Cloudy Urine Specific [place] 1.018 Normal 1.010-1.030 Urine pH 5.0 Normal 5-9 Urine Urobilinogen Negative Negative Urine Ketones Negative Negative Urine Protein Negative Negative Urine Leukocytes Negative Negative Urine Blood Negative Negative Urine Nitrite Negative Negative Urine Bilirubin Negative Negative Urine Glucose Negative Negative CBC No Diff 01/16/2019 [facility] White Blood 10.7 10^3/uL Normal 3.5 -10.8 [phone] Count Red Blood Count 5.13 10^6/uL Normal 4.18-5.48 Hemoglobin 15.6 g/dL Normal 14.0-18.0 Hematocrit 45 % Normal 42-52 Mean Corpuscular Volume 87 fL Normal 80-94 Mean Corpuscular Hemoglobin 30 pg Normal 27-31 Mean Corpuscular HGB Conc 35 g/dL Normal 31-36 Red Cell Distribution Width 15 % Normal 10-15 Platelet Count Platelets clumpe <SEE NOTE> 10^3/uL High 150-450 9 Inr/Protime 01/16/2019 [facility] Inr 0.88 Normal 0.82-1.09 10 [phone] Laboratory test 01/16/2019 [facility] Partial 21.3 seconds Low 26.0- 38.0 finding [phone] Thrombo Time PTT Type & Screen 01/16/2019 [facility] Patient O Negative [phone] Blood Type Antibody Screen NEGATIVE Basic Metabolic Panel 01/16/2019 [facility] Sodium 138 mmol/L Normal 135-145 [phone] Potassium 4.0 mmol/L Normal 3.5-5.0 Chloride 105 mmol/L Normal 101-111 Co2 Carbon Dioxide 27 mmol/L Normal 22-32 Anion Gap 6 mmol/L Normal 2-11 Glucose 95 mg/dL Normal 70-100 Blood Urea Nitrogen 21 mg/dL Normal 6-24 Creatinine 0.90 mg/dL Normal 0.67-1.17 BUN/Creatinine Ratio 23.3 High 8-20 Calcium 9.7 mg/dL Normal 8.6-10.3 Egfr Non- 89.3 >60 Egfr 108.1 >60 11 1 Desirable: <150 Borderline High: 150-199 High: 200-499 Very High: >500 2 Desirable: <200 Borderline High: 200-239 High: >239 3 Low: <40 Desirable: 40-60 High: >60 4 Desirable: <100 Near Optimal: 100-129 Borderline High: 130-159 High: 160-189 Very High: >189 5 Because ethnic data is not always readily available, this report includes an eGFR for both -Americans and non- Americans. The National Kidney Disease Education Program (NKDEP) does not endorse the use of the MDRD equation for patients that are not between the ages of 18 and 70, are , have extremes of body size, muscle mass, or nutritional status, or are non- or non-. According to the National Kidney Foundation, irrespective of diagnosis, the stage of the disease is based on the level of kidney function: Stage Description GFR(mL/min/1.73 m(2)) 1 Kidney damage with normal or decreased GFR 90 2 Kidney damage with mild decrease in GFR 60-89 3 Moderate decrease in GFR 30-59 4 Severe decrease in GFR 15-29 5 Kidney failure <15 (or dialysis) 6 void, clear, gold 7 Please note: The following may produce a false positive D Dimer test: - Rheumatoid factor greater than 60 IU/ml - Plasma hemoglobin greater than 0.05 gm/dl - Bilirubin greater than 50 mg/dl - Lipids greater than 1000 mg/dl - FDP greater than 20 ug/ml [address] Hernandez 9 Platelets clumped. Unable to perform accurate count. 10 Standard intensity warfarin therapeutic range: 2.0-3.0 High intensity warfarin therapeutic range: 2.5-3.5 11 Because ethnic data is not always readily available, this report includes an eGFR for both -Americans and non- Americans. The National Kidney Disease Education Program (NKDEP) does not endorse the use of the MDRD equation for patients that are not between the ages of 18 and 70, are , have extremes of body size, muscle mass, or nutritional status, or are non- or non-. According to the National Kidney Foundation, irrespective of diagnosis, the stage of the disease is based on the level of kidney function: Stage Description GFR(mL/min/1.73 m(2)) 1 Kidney damage with normal or decreased GFR 90 2 Kidney damage with mild decrease in GFR 60-89 3 Moderate decrease in GFR 30-59 4 Severe decrease in GFR 15-29 5 Kidney failure <15 (or dialysis) Procedures Date Code Description Status 07/10/2019 62170 Electrocardiogram Complete Completed 11/29/2015 18069080 Colonoscopy Completed Medical Devices Description No Information Available Encounters Type Date Location Provider Dx Diagnosis Office Visit 07/10/2019 Main Office Lis Murphy M75.41 Impingement syndrome 3:40p P.A. 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 foot M79.672 Pain in left foot M79.605 Pain in left leg R73.01 Impaired fasting glucose Office Visit 02/15/2019 9:45a Main Office Mora Coto, L08.9 Local infection of PA the skin and subcutaneous tissue, unsp Z98.1 Arthrodesis status Office Visit 01/20/2019 8:00a Main Office Lis Murphy M43.22 Fusion of spine, P.A. cervical region S14.2xxD Injury of nerve root of cervical spine, subsequent encounter I10 Essential (primary) hypertension Z01.818 Encounter for other preprocedural examination G47.33 Obstructive sleep apnea (adult) (pediatric) E66.3 Overweight Z68.37 Body mass index (BMI) 37.0-37.9, adult Assessments Date Code Description Provider 07/10/2019 M75.41 Impingement syndrome of right shoulder Lis Sparkill, P.A. 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 07/10/2019 I10 Essential (primary) hypertension Lis Sparkill, P.A. 07/10/2019 Z01.818 Encounter for other preprocedural examination Lis Sparkill, P.A. 07/10/2019 G47.33 Obstructive sleep apnea (adult) (pediatric) Lis Sparkill , P.A. 07/10/2019 E66.9 Obesity, unspecified Lis Sparkill, P.A. 07/10/2019 E78.00 Pure hypercholesterolemia, unspecified Lis Sparkill, P.A. 07/10/2019 E03.9 Hypothyroidism, unspecified Lis Sparkill, P.A. 04/21/2019 M79.671 Pain in right foot Ils Sparkill, P.A. 04/21/2019 M79.672 Pain in left foot Lis Sparkill, P.A. 04/21/2019 M79.605 Pain in left leg Lis Sparkill, P.A. 04/21/2019 R73.01 Impaired fasting glucose Lis Sparkill, P.A. 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 01/20/2019 S14.2xxD Injury of nerve root of cervical spine, Lis Sparkill, P.A. subsequent encounter 01/20/2019 I10 Essential (primary) hypertension Lis Sparkill, P.A. 01/20/2019 Z01.818 Encounter for other preprocedural examination Lis Sparkill, P.A. 01/20/2019 G47.33 Obstructive sleep apnea (adult) (pediatric) Lis Sparkill , P.A. 01/20/2019 E66.3 Overweight Lis Sparkill, P.A. 01/20/2019 Z68.37 Body mass index (BMI) 37.0-37.9, adult Mildred Cartagena Plan of Treatment 04/21/2019 - Mildred CartagenaM79.671 Pain in right footComments:102M79.672 Pain in left footNew Medication:Gabapentin 100 mg - take one capsule by mouth three times a day for foot pain and numbnessFollow up:call to let me know how med is doing, if a lot worse, let me know that tooM79.605 Pain in left legComments:finger stick blood glucose was 102 today discussed that does not have diabetes that could cz these sxsdoes not appear to have a circulatory problem, unlikely a blood clot but will check d-dimer to be sure, if elevated will get USdiscussed that sxs of burning pain in feet suggest a neural issue, and might be assoc w the cervical spine or lumbar regionFollow up:get the lab work around 11:00R73.01 Impaired fasting glucoseComments:a1c 5.0% Functional Status Description No Information Available Mental Status Description No Information Available Referrals Description No Information Available
--- OUTSIDE RECORDS SUMMARY | 2019-08-18 10:51 | XMS REPORT | Continuity of Care Document ---
:1970 External Reference #:[id number] Author Name Tamie Murillo Care Team Providers Name Role Phone HCP given Care Team Information Area Development Consultant Unavailable Daquan Mccarthy MD - Urology Care Team Information Area Development Consultant [phone] Vance Hernandez Md - Care Team Information Area Development Consultant [phone] Neurological Surgery Problems Active Problems Provider Date [...] Gabapentin take one capsule 90caps M79.672 Matthias Sniger, 05/03/2019 400mg Capsules by mouth three D.O. [...] Indications Ordering Provider Date Toradol 15MG. Lis Murphy, P.A. 04/26/2017 Injection SC/Im Injections Lis Murphy, P.A. 04/26/2017 Injection Immunizations CPT Code Status Date Vaccine Reaction Lot # U-Flu Given 04/18/2019 Influenza,Unspecified at drug store U-Flu Given 04/04/2018 Influenza,Unspecified 59803 Given 06/19/2017 Influenza Virus Vaccine, [id number] Quadrivalent, Split, Preservative Free 94700 Given 12/04/2016 Adacel or Boostrix, TDaP [id number] Vital Signs Date Vital Result Comment 07/10/2019 3:42pm BP Systolic 132 mmHg BP Diastolic 84 mmHg Weight 272.00 lb 04/21/2019 3:39pm BP Systolic 120 mmHg BP Diastolic 80 mmHg Weight 271.00 lb Results Test Acquired Date Facility Test Result H/L Range Note Lipid Profile 07/11/2019 [facility] Triglycerides 111 mg/dL 1 (Trig/Chol/HDL) [phone] Cholesterol 137 mg/dL 2 HDL Cholesterol 38.9 mg/dL 3 LDL Cholesterol 76 mg/dL 4 CBC Auto Diff 07/11/2019 [facility] White Blood 7.3 10^3/uL Normal 3.5-10.8 [phone] Count Red Blood Count 4.99 10^6/uL Normal [...] Cells % 0.0 Comp Metabolic Panel 07/11/2019 [facility] Sodium 140 mmol/L Normal 135-145 [phone] Potassium 4.1 mmol/L Normal 3.5-5.0 Chloride 104 [...] Egfr 109.0 >60 5 Laboratory test 07/11/2019 [facility] TSH (Thyroid 3.31 mcIU/mL Normal 0.34-5.60 finding [phone] Stim Horm) Ua Inhouse 07/10/2019 In House Ua Glucose - 6 Ua Bilirubin - Ua Ketones - Ua Specific [place] 1.030 Ua Blood - Ua PH 5.0 Ua Protein - Ua Urobilinogen - Ua Nitrite - Ua Leukocytes - Laboratory test 04/22/2019 [facility] D Dimer < 200 Normal Less 7 finding [phone] Quantitative ng/mL Than 230 Laboratory test 04/21/2019 In House Glucose 102 finding Quantitative Hemoglobin A1c 5.0 CBC Auto Diff 01/28/2019 [facility] White Blood 7.0 10^3/uL Normal 3.5-10.8 [phone] Count Red Blood Count 4.77 10^6/uL Normal [...] Blood Cells % 0.0 Laboratory test 01/20/2019 [facility] Partial 32.4 seconds Normal 26.0-38.0 8 finding [phone] Thrombo Time PTT Urinalysis 01/16/2019 [facility] Urine Color Yellow Profile [phone] Urine Appearance Cloudy Urine Specific [place] 1.018 Normal 1.010-1.030 Urine pH 5.0 Normal 5-9 Urine Urobilinogen Negative Negative Urine Ketones Negative Negative Urine Protein Negative Negative Urine Leukocytes Negative Negative Urine Blood Negative Negative Urine Nitrite Negative Negative Urine Bilirubin Negative Negative Urine Glucose Negative Negative CBC No Diff 01/16/2019 [facility] White Blood 10.7 10^3/uL Normal 3.5 -10.8 [phone] Count Red Blood Count 5.13 10^6/uL Normal 4.18-5.48 Hemoglobin 15.6 g/dL Normal 14.0-18.0 Hematocrit 45 % Normal 42-52 Mean Corpuscular Volume 87 fL Normal 80-94 Mean Corpuscular Hemoglobin 30 pg Normal 27-31 Mean Corpuscular HGB Conc 35 g/dL Normal 31-36 Red Cell Distribution Width 15 % Normal 10-15 Platelet Count Platelets clumpe <SEE NOTE> 10^3/uL High 150-450 9 Inr/Protime 01/16/2019 [facility] Inr 0.88 Normal 0.82-1.09 10 [phone] Laboratory test 01/16/2019 [facility] Partial 21.3 seconds Low 26.0- 38.0 finding [phone] Thrombo Time PTT Type & Screen 01/16/2019 [facility] Patient O Negative [phone] Blood Type Antibody Screen NEGATIVE Basic Metabolic Panel 01/16/2019 [facility] Sodium 138 mmol/L Normal 135-145 [phone] Potassium 4.0 mmol/L Normal 3.5-5.0 Chloride 105 [...] dialysis) Procedures Date Code Description Status 07/10/2019 98792 Electrocardiogram Complete Completed 11/29/2015 03150611 Colonoscopy Completed Medical Devices Description No Information [...] M75.41 Impingement syndrome of right shoulder Lis [place], P.A. 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 07/10/2019 I10 Essential (primary) hypertension Lis [place], P.A. 07/10/2019 Z01.818 Encounter for other preprocedural examination Lis [place], P.A. 07/10/2019 G47.33 Obstructive sleep apnea (adult) (pediatric) Lis [place] , P.A. 07/10/2019 E66.9 Obesity, unspecified Lis [place], P.A. 07/10/2019 E78.00 Pure hypercholesterolemia, unspecified Lis [place], P.A. 07/10/2019 E03.9 Hypothyroidism, unspecified Lis [place], P.A. 04/21/2019 M79.671 Pain in right foot Lis [place], P.A. 04/21/2019 M79.672 Pain in left foot Lis [place], P.A. 04/21/2019 M79.605 Pain in left leg Lis [place], P.A. 04/21/2019 R73.01 Impaired fasting glucose Lis [place], P.A. 02/15/2019 L08.9 Local infection of the skin and subcutaneous Mora Coto PA tissue, unspeci 02/15/2019 Z98.1 Arthrodesis status Mora Coto PA 01/20/2019 M43.22 Fusion of spine, cervical region Lisvenancio Gordonle, P.A. 01/20/2019 S14.2xxD Injury of nerve root of cervical spine, Lis [place], P.A. subsequent encounter 01/20/2019 I10 Essential (primary) hypertension Lis [place], P.A. 01/20/2019 Z01.818 Encounter for other preprocedural examination Lis [place], P.A. 01/20/2019 G47.33 Obstructive sleep apnea (adult) (pediatric) Lis [place] , P.A. 01/20/2019 E66.3 Overweight Lis [place], P.A. 01/20/2019 Z68.37 Body mass index (BMI) 37.0-37.9, adult Lis [place], P.A. Plan of Treatment 04/21/2019 - Mildred CartagenaM79.671 [...]
--- OUTSIDE RECORDS SUMMARY | 2019-08-18 10:51 | XMS REPORT | Continuity of Care Document ---
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 Onset: [...] Former Cigarette Smoker Unknown Smoking Status Reviewed: 07/10/19 Former Cigarette Smoker ETOH Use Rarely consumes alcohol Recreational Drug Use Denies Drug Use Tobacco Use Start: Unknown End: Patient is a former smoker Unknown Exercise Type/Frequency Exercises rarely Allergies, Adverse Reactions, Alerts Description No Known Drug Allergies Medications Active Medications SIG Qnty Indications Ordering Provider Date Hydrocodone 1 tab by mouth 28tabs Vass[place]os 02/28/2019 Bitartrate/Acetaminoph every 6 hours as MD David en needed pain 5-325mg Tablets Levothyroxine Sodium 1 by mouth every Unknown 07/12/2015 day 100mcg Solution Rec Lipitor one tab by mouth Unknown 20mg Tablets every night at bedtime Probiotic daily Unknown Celecoxib Take One Capsule Unknown 200mg Capsules By Mouth Every Day For Back Pain Losartan Potassium Derry, Lis 25mg S., PA Tablets Medications Administered in Office Medication SIG Qnty Indications Ordering Provider Date Triamcinolone (Kenalog) Tariq Maddox MD 05/20/2019 Injection Triamcinolone (Kenalog) Tariq Maddox MD 01/07/2019 Injection Immunizations Description No Information Available Vital Signs Date Vital Result Comment 07/10/2019 9:05am Height 70 inches 5'10" Weight 272.00 lb Heart Rate 79 /min BP Systolic 122 mmHg BP Diastolic 82 mmHg Respiratory Rate 18 /min Body Temperature 98.6 F Pain Level 6 O2 % BldC Oximetry 98 % BMI (Body Mass Index) 39.0 kg/m2 06/10/2019 2:42pm Height 70 inches 5'10" Weight 275.00 lb Heart Rate 94 /min Body Temperature 98.4 F Pain Level 6 O2 % BldC Oximetry 96 % BMI (Body Mass Index) 39.5 kg/m2 Results Test Acquired Date Facility Test Result H/L Range Note CBC Auto 01/28/2019 [facility] White Blood 7.0 10^3/uL Normal 3.5-10.[address] [place] [address] [phone] Red Blood Count 4.77 10^6/uL Normal 4.18-5.48 [...] % Nucleated Red Blood Cells % 0.0 Basic Metabolic 01/16/2019 [facility] Sodium 138 mmol/L Normal 135-145 Panel [address] [place] [address] [phone] Potassium 4.0 mmol/L Normal 3.5-5.0 Chloride 105 mmol/L Normal 101-111 Co2 Carbon Dioxide 27 mmol/L Normal 22-32 Anion Gap 6 mmol/L Normal 2-11 Glucose 95 mg/dL Normal 70-100 Blood Urea Nitrogen 21 mg/dL Normal 6-24 Creatinine 0.90 mg/dL Normal 0.67-1.17 BUN/Creatinine Ratio 23.3 High 8-20 Calcium 9.7 mg/dL Normal 8.6-10.3 Egfr Non- 89.3 >60 Egfr 108.1 >60 1 Urinalysis Profile 01/16/2019 [facility] Urine Color Yellow [address] [place] [address] [phone] Urine Appearance Cloudy Urine Specific [place] 1.018 Normal 1.010-1.030 Urine pH 5.0 Normal 5-9 Urine Urobilinogen Negative Negative Urine Ketones Negative Negative Urine Protein Negative Negative Urine Leukocytes Negative Negative Urine Blood Negative Negative Urine Nitrite Negative Negative Urine Bilirubin Negative Negative Urine Glucose Negative Negative CBC No Diff 01/16/2019 [facility] White Blood 10.7 10^3/uL Normal 3.5-10.[address] [place], [place] [id number] [phone] Red Blood Count 5.13 10^6/uL Normal 4.18-5.48 Hemoglobin 15.6 g/dL Normal 14.0-18.0 Hematocrit 45 % Normal 42-52 Mean Corpuscular Volume 87 fL Normal 80-94 Mean Corpuscular Hemoglobin 30 pg Normal 27-31 Mean Corpuscular HGB Conc 35 g/dL Normal 31-36 Red Cell Distribution Width 15 % Normal 10-15 Platelet Count Platelets clumpe <SEE NOTE> 10^3/uL High 150-450 2 Inr/Protime 01/16/2019 [facility] Inr 0.88 Normal 0.82-1.[address] [place] [address] [phone] Laboratory test 01/16/2019 [facility] Partial 21.3 Low 26.0- 38.[address] [place] [address] Time PTT [phone] Type & Screen 01/16/2019 [facility] Patient O Negative [address] Blood Type [place], [place] [id number] [phone] Antibody Screen NEGATIVE 1 Because ethnic data is not always readily [...] 15-29 5 Kidney failure <15 (or dialysis) 2 Platelets clumped. Unable to perform accurate count. 3 Standard intensity warfarin therapeutic range: 2.0-3.0 High intensity warfarin therapeutic range: 2.5-3.5 Procedures Date Code Description Status 05/20/201983854 Inject/Drain Joint/Bursa Major W/O US Completed 01/28/2019 18577 EKG, Interpretation Only Completed 01/28/2019 39153 Insertion Interbody Biomechanical Device; Each Interspace Completed 01/28/2019 99343 Insertion Interbody Biomechanical Device; Each Interspace Completed 01/28/2019 60934 Anterior Instrumentation 2-3 Vertebral Segments Completed 01/28/2019 66151 Anterior Instrumentation 2-3 Vertebral Segments Completed 01/28/2019 96107 arthrodesis,anterior interbody incl disc space Completed prep,discectomy,de 01/28/2019 72169 arthrodesis,anterior interbody incl disc space Completed prep,discectomy,de 01/28/201994412 Autograft For Spine Surgery ([employer]cls Harvesting [employer] Graft) Completed 01/28/201917722 Allograft For Spine Surgery, Morselized Completed 01/16/2019 77829 EKG, Interpretation Only Completed 01/10/2019 66033 Nerve Conduction 03-04 Studies Completed 01/10/2019 77757 Needle Electromyography Complete, Five Or More Muscles Completed Studied Medical Devices Description No Information Available Encounters Type Date Location Provider Dx Diagnosis Office Visit 06/10/2019 Rosana Maddox MD M75.41 Impingement 2:30p at [place] syndrome of right shoulder M75.21 Bicipital tendinitis, right shoulder Office Visit 05/20/2019 10:30a Stewart Stallinsg.41 Impingement at [facility] syndrome of right [...] arm, subs M75.21 Bicipital tendinitis, right shoulder Office Visit 01/28/2019 8:45a [facility] Karin Guan, R07.9 Chest pain, Assoc,pc unspecified Hospitalists E78.5 Hyperlipidemia, unspecified E03.9 Hypothyroidism, unspecified G47.30 Sleep apnea, unspecified Office Visit 01/16/2019 1:45p [facility] Tariq Maddox M75.41 Impingement at [place] syndrome of right shoulder S46.111A Strain of musc/fasc/tend long hd bicep, right arm, init Assessments Date Code Description Provider 07/10/2019 M75.41 Impingement syndrome of right Tariq [...] G47.30 Sleep apnea, unspecified Karin Guan MD 01/28/2019 R07.9 Chest pain, unspecified Caroline Sheridan M.D. 01/28/2019 M50.223 Other cervical disc displacement at Vance Hernandez MD C6-C7 level 01/28/2019 R07.9 Chest pain, unspecified Karin Guan MD 01/28/2019 M50.123 Cervical disc disorder at C6-C7 Vance Hernandez MD level with radiculopathy 01/28/2019 E78.5 Hyperlipidemia, unspecified Karin Guan MD 01/28/2019 E03.9 Hypothyroidism, unspecified Karin Guan MD 01/28/2019 G47.30 Sleep apnea, unspecified Karin Guan MD 01/16/2019 R00.1 Bradycardia, unspecified Ronaldo Bryson M.D., [facility] 01/16/2019 M75.41 Impingement syndrome of right Tariq Maddox MD shoulder 01/16/2019 S46.111A Strain of muscle, fascia and tendon Tariq Maddox MD of long head of biceps, 01/10/2019 M50.123 Cervical disc disorder at C6-C7 Akshat Marie M.D. level with radiculopathy Plan of Treatment Future Appointment(s):07/16/2019 12:00 pm - Tammie Brewer PA-C at [facility] at [place]/16/2019 12:00 pm - Tariq Maddox MD at [facility] at [id number]/01/2019 9:30 am - BAHMAN Guerra [facility]07/10/2019 - Tariq Maddox, MDM75.41 Impingement syndrome of right shoulderFollow up:Follow up: 10-14 days - Schedule PT, will send script after ffhypqlA99.21 Bicipital tendinitis, right shoulderFollow up:Follow up: Functional Status Description No Information Available Mental Status Description No Information Available Referrals Description No Information Available
--- OUTSIDE RECORDS SUMMARY | 2019-08-18 10:51 | XMS REPORT | Continuity of Care Document ---
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 Onset: 01/01/2017 intervertebral disc Kidney stone Melonie Dee M.D. Onset: 04/04/2018 Hypothyroidism Melonie Dee M.D. Onset: 04/04/2018 Hyperlipidemia Melonie Dee M.D. Onset: 04/04/2018 Unspecified Escherichia coli [E. Melonie Dee M.D. Onset: 04/05/2018 coli] as the [...] Former Cigarette Smoker Unknown Smoking Status Reviewed: 07/11/19 Former Cigarette Smoker ETOH Use Rarely consumes alcohol Recreational Drug Use Denies Drug Use Tobacco Use Start: Unknown End: Patient is a former smoker Unknown Exercise Type/Frequency Exercises rarely Allergies, Adverse Reactions, Alerts Description No Known Drug Allergies Medications Active Medications SIG Qnty Indications Ordering Provider Date Modafinil 1/2-1 tab in am, 30tabs G47.14 Tamiko Maldonado, 07/11/2019 200mg Tablets if needed as CHULA, RN, MOLD FILLER-BC directed Hydrocodone 1 tab by mouth 28tabs [...] Every Day For Back Pain Losartan Potassium [place], Lis 25mg S., PA Tablets Medications Administered in Office Medication SIG Qnty Indications Ordering Provider Date Triamcinolone (Kenalog) Tariq Maddox MD 05/20/2019 Injection Triamcinolone (Kenalog) Tariq Maddox MD 01/07/2019 Injection Immunizations Description No Information Available Vital Signs Date Vital Result Comment 07/11/2019 7:55am Height 70 inches 5'10" Weight 272.00 lb Heart Rate 65 /min BP Systolic 124 mmHg BP Diastolic 68 mmHg O2 % BldC Oximetry 97 % BMI (Body Mass Index) 39.0 kg/m2 07/10/2019 9:05am Height 70 inches 5'10" Weight 272.00 lb Heart Rate 79 /min BP Systolic 122 mmHg BP Diastolic 82 mmHg Respiratory Rate 18 /min Body Temperature 98.6 F Pain Level 6 O2 % BldC Oximetry 98 % BMI (Body Mass Index) 39.0 kg/m2 Results Test Acquired Date Facility Test Result H/L Range Note CBC Auto 01/28/2019 [facility] White Blood 7.0 10^3/uL Normal 3.5-10.[address] [place] [address] [phone] Red Blood Count 4.77 10^6/uL Normal 4.18-5.48 [...] Blood Cells % 0.0 Basic Metabolic 01/16/2019 [facility] Sodium 138 mmol/L Normal 135-[address] [place] [address] [phone] Potassium 4.0 mmol/L Normal 3.5-5.0 Chloride 105 mmol/L Normal 101-111 Co2 Carbon Dioxide 27 mmol/L Normal 22-32 Anion Gap 6 mmol/L Normal 2-11 Glucose 95 mg/dL Normal 70-100 Blood Urea Nitrogen 21 mg/dL Normal 6-24 Creatinine 0.90 mg/dL Normal 0.67-1.17 BUN/Creatinine Ratio 23.3 High 8-20 Calcium 9.7 mg/dL Normal 8.6-10.3 Egfr Non- 89.3 >60 Egfr 108.1 >60 1 Urinalysis Profile 01/16/2019 [facility] Urine Color Yellow [address] [place] [address] [phone] Urine Appearance Cloudy Urine Specific [place] 1.018 Normal 1.010-1.030 Urine pH 5.0 Normal 5-9 Urine Urobilinogen Negative Negative Urine Ketones Negative Negative Urine Protein Negative Negative Urine Leukocytes Negative Negative Urine Blood Negative Negative Urine Nitrite Negative Negative Urine Bilirubin Negative Negative Urine Glucose Negative Negative CBC No Diff 01/16/2019 [facility] White Blood 10.7 10^3/uL Normal 3.5-10.[address] [place] [address] [phone] Red Blood Count 5.13 10^6/uL Normal 4.18-5.48 Hemoglobin 15.6 g/dL Normal 14.0-18.0 Hematocrit 45 % Normal 42-52 Mean Corpuscular Volume 87 fL Normal 80-94 Mean Corpuscular Hemoglobin 30 pg Normal 27-31 Mean Corpuscular HGB Conc 35 g/dL Normal 31-36 Red Cell Distribution Width 15 % Normal 10-15 Platelet Count Platelets clumpe <SEE NOTE> 10^3/uL High 150-450 2 Inr/Protime 01/16/2019 [facility] Inr 0.88 Normal 0.82-1.09 [address] [place] [address] [phone] Laboratory test 01/16/2019 [facility] Partial 21.3 Low 26.0- 38.0 finding [address] [facility] [place] [address] Time PTT [phone] Type & Screen 01/16/2019 [facility] Patient O Negative [facility] [place] DATES [facility] [place] [place] [address] [phone] Antibody Screen NEGATIVE 1 Because ethnic data [...] range: 2.5-3.5 Procedures Date Code Description Status 05/20/201949069 Inject/Drain Joint/Bursa Major W/O US Completed 01/28/2019 62107 EKG, Interpretation Only Completed 01/28/2019 56626 Insertion Interbody Biomechanical Device; Each Interspace Completed 01/28/2019 52105 Insertion Interbody Biomechanical Device; Each Interspace Completed 01/28/2019 38693 Anterior Instrumentation 2-3 Vertebral Segments Completed 01/28/2019 61489 Anterior Instrumentation 2-3 Vertebral Segments Completed 01/28/2019 71900 arthrodesis,anterior interbody incl disc space Completed prep,discectomy,de 01/28/2019 70371 arthrodesis,anterior interbody incl disc space Completed prep,discectomy,de 01/28/2019 89834 Autograft For Spine Surgery ([employer]cls Harvesting The Graft) Completed 01/28/201949522 Allograft For Spine Surgery, Morselized Completed 01/16/2019 55930 EKG, Interpretation Only Completed 01/10/2019 60631 Nerve Conduction 03-04 Studies Completed 01/10/2019 14431 Needle Electromyography Complete, Five Or More Muscles Completed Studied Medical Devices Description No Information Available Encounters Type Date Location Provider Dx Diagnosis Office Visit 06/10/2019 Rosana Maddox MD M75.41 Impingement 2:30p at [place] syndrome of right shoulder M75.21 Bicipital tendinitis, right shoulder Office Visit 05/20/2019 10:30a Guero Stallings75.41 Impingement at [facility] syndrome of right shoulder S46.111D Strain of musc/fasc/tend long hd bicep, right arm, subs Office Visit 04/10/2019 8:15a Guero Stallings75.41 Impingement at [facility] syndrome of right shoulder S46.111D Strain of musc/fasc/tend long hd bicep, right arm, subs Office Visit 02/25/2019 3:15p [facility] Tariq Maddox M75.41 Impingement at [facility] syndrome of right shoulder S46.111D Strain of musc/fasc/tend long hd bicep, right arm, subs M75.21 Bicipital tendinitis, right shoulder Office Visit 01/28/2019 8:45a [facility] Karin Dill, R07.9 Chest pain, Assoc,pc MD unspecified Hospitalists E78.5 Hyperlipidemia, unspecified E03.9 Hypothyroidism, unspecified G47.30 Sleep apnea, unspecified Office Visit 01/16/2019 1:45p [facility] Tariq Maddox M75.41 Impingement at [facility] syndrome of right shoulder S46.111A Strain of musc/fasc/tend long hd bicep, right arm, init Assessments Date Code Description Provider 07/11/2019 G47.37 Central sleep apnea in conditions Tamiko Maldonado DNP, RN , classified elsewhere [facility] 07/11/2019 G47.33 Obstructive sleep apnea (adult) Tamiko Maldonado DNP, RN, (pediatric) [facility] 07/11/2019 G47.14 Hypersomnia due to medical Tamiko Maldonado DNP, RN, condition [facility] 07/10/2019 M75.41 Impingement syndrome of right Tariq [...] S46.111D Strain of muscle, fascia and tendon Traiq Maddox MD of long head of biceps, [...] 01/16/2019 R00.1 Bradycardia, unspecified Ronaldo Bryson M.D., [facility] 01/16/2019 M75.41 Impingement syndrome of right Tariq Maddox MD shoulder 01/16/2019 S46.111A Strain of muscle, fascia and tendon Tariq Maddox MD of long head of biceps, 01/10/2019 M50.123 Cervical disc disorder at C6-C7 Akshat Marie M.D. level with radiculopathy Plan of Treatment Future Appointment(s):08/19/2019 9:00 am - Tamiko Maldonado DNP, RN, MOLD FILLER-BC at [facility]07/31/2019 2:30 pm - aTriq Maddox MD at [facility] at [id number]/16/2019 12:00 pm - Tammie Brewer PA-C at [facility] at [id number]/16/2019 12:00 pm - Tariq Maddox MD at [facility] at [id number]/01/2019 9:30 am - BAHMAN Guerra at [facility]07/11/2019 - Tamiko Maldonado DNP, RN, MOLD FILLER-BCG47.37 Central sleep apnea in conditions classified elsewhereNew Orders:[facility], Ordered : 07/11/19Comments:09/22/11 NPSG post UPPP wt 234, BMI 34.6 kg/sq m tRDI 106.2, priti oxygen 88%On ASV AHI 0.3/hour,normal.Recommendations:Continue ASV device, Benefitting and compliant with treatment. Cleaning Wipe off mask daily (baby wipe-no scent, or warm water) Clean mask, tubing, filter, and water chamber weekly in mild no scent dish soap and water. Hang to dry. If you have any sleepiness while driving you MUST avoid operating a vehicle or machinery. If you have difficulty with your equipment, or need to replace your mask or hoses, please contact your homecare agency. A weight change of 20 pounds or more may have an effect onyour equipment; if you are experiencing problems please call for an appointment. 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 You shouldreduce caffeine intake to switch to decaf as discussed. DO not drink coffee or caffeine products with the modafinil. Read package insert and report side effects. Possible testing with multiple sleeplatency test for possible diagnosis for the sleepiness Functional Status Description No Information Available Mental Status Description No Information Available Referrals Description No Information Available
[2019-08-18 11:53] LABS: ABS Basophils 0.1 10^3/ul (0-0.2); ABS Eosinophils 0.1 10^3/ul (0-0.6); ABS Lymphocytes 1.1 10^3/ul (1.0-4.8); ABS Monocytes 0.6 10^3/ul (0-0.8); ABS Neutrophils 5.1 10^3/ul (1.5-7.7); Eosinophil % 1.9 %; Hematocrit 43 % (42-52); Hemoglobin 15.2 g/dL (14.0-18.0); Lymphocyte % 15.9 %; Mean Corpuscular HGB Conc 35 g/dL (31-36); Mean Corpuscular Hemoglobin 31 pg (27-31); Mean Corpuscular Volume 88 fL (80-94); Nucleated Red Blood Cells % 0.2; Platelet Count 177 10^3/uL (150-450); Red Blood Count 4.91 10^6 /uL (4.18-5.48); Red Cell Distribution Width 15 % (10-15)
[2019-08-18 12:16] LABS: Albumin 4.4 g/dL (3.2-5.2); Albumin/Globulin Ratio 1.6 (1-3); BUN/Creatinine Ratio 18.9 (8-20); C Reactive Protein 4.81 mg/L (<8.01); Calcium 10.1 mg/dL (8.6-10.3); EGFR African American 107.6 (>60); Globulin 2.7 g/dL (2-4); Potassium 4.5 mmol/L (3.5-5.0); Total Bilirubin 0.8 mg/dL (0.2-1.0); Total Protein 7.1 g/dL (6.4-8.9)
[2019-08-18] MEDS ORDERED: Ketorolac INJ* 30 MG/ML 1 ML VIAL IV PUSH ONE (12:26)
[2019-08-18] MEDS ORDERED: NS 0.9% 1000 ML** 1,000 ML IV ONE (12:27)
[2019-08-18] MEDS ORDERED: Ondansetron INJ* 2 MG/ML VIAL IV ONE (12:28)
--- NOTE | 2019-08-18 12:28 | ED ---
Back Pain - HPI Summary HPI Summary: 49 year old male presents to the ED with a chief complaint of left back and flank pain starting yesterday, worse today. Pain is a 10/10 in severity. Patient reports nausea, and painful bowel movements. Denies vomiting, dysuria, myalgia, chills, and midline pain. Patient has a history of kidney stones, last stone 2016. No history of other kidney issues. Patient has HLD. He has a history of lower back pains but per patient this episode feels different. - History of Current Complaint Chief Complaint: EDFlankPain Stated Complaint: POSS KIDNEY STONES PER PT Time Seen by Provider: 08/18/19 12:20 Hx Obtained From: Patient Onset/Duration: Gradual Onset, Lasting Hours, Still Present, Worse Since - This morning Onset/Duration: Started Days Ago - Yesterday Timing: Constant Back Pain Location: Is Discrete @ - Left back and flank Severity Initially: Severe Severity Currently: Severe Pain Intensity: 10 Pain Scale Used: 0-10 Numeric Character: Sharp Aggravating Symptom(s): Other - Bowel movements Associated Signs And Symptoms: Positive: Flank Pain - Allergies/Home Medications Allergies/Adverse Reactions: Allergies Allergy/AdvReac Type Severity Reaction Status Date / Time No Known Allergies Allergy Verified 08/18/19 10:33 Home Medications: Home Medications Gabapentin CAP(*) [Neurontin 400 mg CAP(*)] 400 mg PO TID 08/18/19 [History Confirmed 08/18/19] Hydrocodone/Acetaminophen [[place] 7.5-325 Tablet] 1 each PO .Q4-6H PRN 08/18/19 [ History Confirmed 08/18/19] Meclizine TAB* [Antivert 12.5 TAB*] 25 mg PO Q8H PRN 08/18/19 [History Confirmed 08/18/19] PMH/Surg Hx/FS Hx/Imm Hx Endocrine/Hematology History: Reports: Hx Thyroid Disease Denies: Hx Diabetes Cardiovascular History: Reports: Hx Hypercholesterolemia, Other Cardiovascular Problems/Disorders - high cholesterol Denies: Hx Congestive Heart Failure, Hx Hypertension, Hx Pacemaker/ICD Respiratory History: Reports: Hx Asthma - BRONCHIAL, Hx Sleep Apnea GI History: Reports: Hx Gastroesophageal Reflux Disease - occassionally Denies: Other GI Disorders History: Reports: Hx Kidney Stones - hx of, Hx Renal Disease - STONES Denies: Hx Dialysis, Other Problems/Disorders Musculoskeletal History: Reports: Hx Arthritis - lower back- DDD, Hx Back Problems - increasing back pain 04/2013 Denies: Hx Scoliosis Sensory History: Reports: Hx Contacts or Glasses Denies: Hx Hearing Aid Opthamlomology History: Reports: Hx Contacts or Glasses Neurological History: Reports: Other Neuro Impairments/Disorders - dizziness noted before Denies: Hx Headaches, Hx Seizures, Hx Transient Ischemic Attacks (TIA) Psychiatric History: Denies: Hx Panic Disorder - Cancer History Hx Chemotherapy: No - Surgical History Surgery Procedure, Year, and Place: T&A; Appendectomy; Left Knee Surgery; Left Elbow; Throat (UPPP) (REMOVAL OF UVULA);. Septoplasty; 01/2018 kidney stone surgery; 05/2017 cervical neck fusion; 03/2018 right kidney stone surgery; NECK SURGERY 07/2018-LAMINECTOMY WITH FACTECTOMY Hx Anesthesia Reactions: No Infectious Disease History: No Infectious Disease History: Denies: Traveled Outside the [place] in Last 30 Days - Family History Known Family History: Positive: Cardiac Disease, Other - Lung CA - Social History Alcohol Use: Rare Hx Substance Use: Yes Substance Use Type: Reports: None Substance Use Comment - Amount & Last Used: percocet 5/325 q4h prn, Hx Tobacco Use: Yes Smoking Status (MU): Former Smoker Amount Used/How Often: 15 years smoked 1.5 ppd Have You Smoked in the Last Year: No Review of Systems Negative: Fever, Chills Positive: Nausea, Other - Painful BM. Negative: Vomiting Positive: flank pain. Negative: dysuria Musculoskeletal: Negative - Neg - midline pain Negative: Myalgia All Other Systems Reviewed And Are Negative: Yes Physical Exam - Summary Physical Exam Summary: VITAL SIGNS: Reviewed. GENERAL: Patient is a well-developed and nourished male who is lying comfortable in the stretcher. Patient is in mild distress. HEAD AND FACE: Normocephalic and atraumatic. EYES: PERRLA, EOMI x 2, No injected conjunctiva. EARS: Hearing grossly intact. Ear canals and tympanic membranes are WNL. MOUTH: Oropharynx within normal limits. NECK: Supple, trachea is midline, no adenopathy, no JVD. CHEST: Symmetric, no tenderness at palpation. LUNGS: Clear to auscultation bilaterally. No wheezing or crackles. CVS: RRR, S1 and S2 present, no murmurs or gallops appreciated. ABDOMEN: Soft. No signs of distention. Positive bowel sounds. No rebound, no guarding, and no masses palpated. No abdominal bruit or pulsations. BACK: Left CVA tenderness. Left back tenderness. EXTREMITIES: FROM in all major joints, no edema, no cyanosis or clubbing. NEURO: Alert and oriented x 3. No acute neurological deficits. Speech is normal. SKIN: Dry and warm. Triage Information Reviewed: Yes Vital Signs On Initial Exam: Initial Vitals Temp Pulse Resp BP Pulse Ox 98.2 F 95 16 139/93 97 08/18/19 10:31 08/18/19 10:31 08/18/19 10:31 08/18/19 10:31 08/18/19 10:31 Vital Signs Reviewed: Yes Procedures - Sedation Patient Received Moderate/Deep Sedation with Procedure: No Diagnostics - Vital Signs Vital Signs Temp Pulse Resp BP Pulse Ox 08/18/19 12:00 79 95 08/18/19 11:58 79 96 08/18/19 10:31 98.2 F 95 16 139/93 97 - Laboratory Lab Results: Lab Results 08/18/19 08/18/19 08/18/19 Range/Units 11:44 11:44 11:44 WBC 7.0 (3.5-10.8) 10^3/uL RBC 4.91 (4.18-5.48) 10^6 /uL Hgb 15.2 (14.0-18.0) g/dL Hct 43 (42-52) % MCV 88 (80-94) fL MCH 31 (27-31) pg MCHC 35 (31-36) g/dL RDW 15 (10-15) % Plt Count 177 (150-450) 10^3/uL MPV 7.0 L (7.4-10.4) fL Neut % (Auto) 72.6 % Lymph % (Auto) 15.9 % Mora % (Auto) 8.8 % Eos % (Auto) 1.9 % Baso % (Auto) 0.8 % Absolute Neuts (auto) 5.1 (1.5-7.7) 10^3/ul Absolute Lymphs (auto) 1.1 (1.0-4.8) 10^3/ul Absolute Monos (auto) 0.6 (0-0.8) 10^3/ul Absolute Eos (auto) 0.1 (0-0.6) 10^3/ul Absolute Basos (auto) 0.1 (0-0.2) 10^3/ul Absolute Nucleated RBC 0.0 10^3/ul Nucleated RBC % 0.2 Sodium 139 (135-145) mmol/L Potassium 4.5 (3.5-5.0) mmol/L Chloride 104 (101-111) mmol/L Carbon Dioxide 27 (22-32) mmol/L Anion Gap 8 (2-11) mmol/L BUN 17 (6-24) mg/dL Creatinine 0.90 (0.67-1.17) mg/dL Est GFR ( Amer) 107.6 (>60) Est GFR (Non-Af Amer) 89.0 (>60) BUN/Creatinine Ratio 18.9 (8-20) Glucose 126 H (70-100) mg/dL Lactic Acid 2.4 H* (0.5-2.0) mmol/L Calcium 10.1 (8.6-10.3) mg/dL Total Bilirubin 0.80 (0.2-1.0) mg/dL AST 26 (13-39) U/L ALT 55 H (7-52) U/L Alkaline Phosphatase 105 H (34-104) U/L C-Reactive Protein 4.81 (<8.01) mg/L Total Protein 7.1 (6.4-8.9) g/dL Albumin 4.4 (3.2-5.2) g/dL Globulin 2.7 (2-4) g/dL Albumin/Globulin Ratio 1.6 (1-3) Lipase 10 L (11.0-82.0) U/L Result Diagrams: 08/18/19 11:44 08/18/19 11:44 Lab Statement: Any lab studies that have been ordered have been reviewed, and results considered in the medical decision making process. - CT AP CT CT Interpretation Completed By: Radiologist Summary of CT Findings: IMPRESSION: 1. BILATERAL NEPHROLITHIASIS WITHOUT HYDRONEPHROSIS. 2. DEGENERATIVE DISC DISEASE AND OSTEOARTHRITIS MOST PRONOUNCED AT L4-L5 AND L5-S1. 3. FATTY INFILTRATION OF THE LIVER. An ED physician has reviewed this report. L-spine CT CT Interpretation Completed By: Radiologist Summary of CT Findings: IMPRESSION: 1. BILATERAL NEPHROLITHIASIS WITHOUT HYDRONEPHROSIS. 2. DEGENERATIVE DISC DISEASE AND OSTEOARTHRITIS MOST PRONOUNCED AT L4-L5 AND L5-S1. 3. FATTY INFILTRATION OF THE LIVER. An ED physician has reviewed this report. Back Pain Course/Dx - Course Assessment/Plan: 49 year old male presents to the ED with a chief complaint of left back and flank pain starting yesterday, worse today. Pain is a 10/10 in severity. Patient reports nausea, and painful bowel movements. Denies vomiting, dysuria, myalgia, chills, and midline pain. Patient has a history of kidney stones, last stone 2016. No history of other kidney issues. Patient has HLD. He has a history of lower back pains but per patient this episode feels different. Blood work without any significant abnormality except for glucose of 126, lactic acid is 2.4, alkaline phosphatase is 105. Urinalysis is negative for UTI. L spine CT IMPRESSION: 1. BILATERAL NEPHROLITHIASIS WITHOUT HYDRONEPHROSIS. 2. DEGENERATIVE DISC DISEASE AND OSTEOARTHRITIS MOST PRONOUNCED AT L4-L5 AND L5-S1. 3. FATTY INFILTRATION OF THE LIVER. In the ED course the patient was given IV fluids, the patient was given Toradol for pain. The patient doesnt have any acute renal colic likely the pain is coming from the wound degenerative disc disease. Therefore the patient was given a muscle relaxant. The patients lactic acid is 2.4, however the patient does have any signs of infection. Patient doesnt have any productive cough, diarrhea, dysuria or hematuria. The patient does have any fever and the vital signs are stable. Cosleep. At this point I discussed my physical exam and findings with the patient. The patient will be given a prescription for muscle relaxants and anti-inflammatories and pain medications. I discussed all the findings and test results with the patient. Patient was instructed to return to the emergency room immediately if any of the symptoms return or worsen. Plan of care was discussed with the patient and understands and agrees. All questions were answered at patient satisfaction. There were no further complaints or concerns. Lung exam before discharge: CTA B/L. Good air exchange. No wheezing or crackles heard. CVS: S1 and S2 present. No murmurs appreciated. Patient is alert and oriented x 3. Patient is hemodynamically stable. Patient will be discharged home with follow up PCP in the next 2-3 days - Diagnoses Differential Diagnosis/HQI/PQRI: Positive: Fracture, Herniated Disc, Renal Colic , Strain, Sprain Provider Diagnoses: Flank pain, Back pain Discharge ED - Sign-Out/Discharge Documenting (check all that apply): Patient Departure - discharge home - Discharge Plan Condition: Stable Disposition: HOME Prescriptions: Hydrocodone/Acetaminophen [[place] 5-325 Tablet] 1 each PO Q6H PRN #12 tablet MDD 4 PRN Reason: Pain - Moderate Methocarbamol TAB* [Robaxin 500 MG TAB*] 500 mg PO TID PRN #12 tab PRN Reason: Spasms - Back Patient Education Materials: Flank Pain (ED) Referrals: Lis Murphy PA [Primary Care Provider] - Additional Instructions: Follow up with your primary care provider in 2-3 days. Return to the Emergency Room if you experience new or worsened symptoms. - Billing Disposition and Condition Condition: STABLE Disposition: Home - Attestation Statements Document Initiated by Scribe: Yes Documenting Scribe: Robert Hernandes Provider For Whom Debra is Documenting (Include Credential): Jose Elias Daniels MD Scribe Attestation: Robert Zamora scribed for Jose Elias Daniels MD on 08/18/19 at 2119. Scribe Documentation Reviewed: Yes Provider Attestation: The documentation as recorded by the Robert couch accurately reflects the service I personally performed and the decisions made by Jose Elias duncan MD Status of Scribe Document: Viewed
[2019-08-18 12:43] LABS: Urine Appearance Cloudy; Urine Bilirubin Negative (Negative); Urine Blood Negative (Negative); Urine Color Yellow; Urine Glucose Negative (Negative); Urine Ketones Negative (Negative); Urine Nitrite Negative (Negative); Urine Protein 1+(30 mg/dL) (Negative); Urine Specific Gravity 1.021 (1.010-1.030); Urine Urobilinogen Negative (Negative)
[2019-08-18 12:49] LABS: Urine Bacteria Absent (Absent); Urine Red Blood Cell Absent (Absent); Urine White Blood Cell Trace(0-5/hpf) (Absent)
[2019-08-18] MEDS ORDERED: HYDROcodone/ACETAMIN 5-325 MG* 1 TAB PO ONE (13:42)
[2019-08-18] MEDS ORDERED: Methocarbamol TAB* 500 MG PO ONE (13:42)
[2019-08-18 14:24] VITALS: BP 136/72
== END 2019-08-18 14:23 | disposition home or self-care (01) ==
LOC: ED 10:30
DX: M54.5 Low back pain (principal); N20.0 Calculus of kidney; Z87.442 Personal history of urinary calculi; K76.0 Fatty (change of) liver, not elsewhere classified; M51.37 Other intervertebral disc degeneration, lumbosacral region; M47.817 Spondylosis without myelopathy or radiculopathy, lumbosacral region; R11.0 Nausea; E78.00 Pure hypercholesterolemia, unspecified; Z87.891 Personal history of nicotine dependence
CPT/HCPCS: 36415; 72131; 74176; 80053; 81003; 81015; 83605; 83690; 85025; 86140; 87086; 96361; 96374; 96375; 99283; A9270-GY; J1885; J2405

== ENCOUNTER 2019-09-16 15:42 | Emergency (ER) | payer OTHER ==
--- OUTSIDE RECORDS SUMMARY | 2019-09-16 15:55 | XMS REPORT | Continuity of Care Document ---
:1970 External Reference #:[id number] Author Name Tariq Maddox MD (transmitted by agent of provider Lorenza Fletcher) Address [address] [facility] [place] [address] Care Team Providers Name Role Phone Lis Murphy PA - Physician Care Team Information Quality Assurance Nurse [phone] Acupressure Therapist Problems Active Problems Provider Date Lumbosacral spondylosis without Favio Mccarthy M.D. Onset: 09/08/2014 myelopathy Obstructive sleep apnea of adult Tamiko Maldonado DNP, RN, GRAB JACK MAN-BC Onset: 07/2011 Shift worker Tamiko Maldonado DNP RN, GRAB JACK MAN-BC Onset: 10/07/2014 Note: second shift Central sleep apnea syndrome Tamiko Maldonado DNP RN, Onset: 07/18/2016 GRAB JACK MAN-BC Degeneration of lumbar Akshat Alfaro M.D. Onset: [...] Former Cigarette Smoker Unknown Smoking Status Reviewed: 08/29/19 Former Cigarette Smoker ETOH Use Rarely consumes [...] 200mg Tablets if needed as CHULA, RN, GRAB JACK MAN-BC directed Hydrocodone 1 tab by mouth 28tabs [...] Every Day For Back Pain Losartan Potassium 1 tablet daily SlovanEfrain vickothy 25mg S., PA Tablets Gabapentin 1 tablet tid Nubia Ross, 400mg Capsules M.D. History Medications Percocet 1 tabs by mouth 18tabs Tariq Maddox MD 07/16/2019 - 5-325mg every 4-6 hours as 08/28/2019 Tablets needed post op pain. MDD 6 Medications Administered in Office Medication SIG Qnty Indications Ordering Provider Date Triamcinolone (Kenalog) Tariq Maddox MD 05/20/2019 Injection Triamcinolone (Kenalog) Tariq Maddox MD 01/07/2019 Injection Immunizations Description No Information Available Vital Signs Date Vital Result Comment 08/29/2019 8:29am Height 70 inches 5'10" Weight 220.00 lb Heart Rate 76 /min BP Systolic 132 mmHg BP Diastolic 78 mmHg Respiratory Rate 18 /min Pain Level 6 BMI (Body Mass Index) 31.6 kg/m2 07/31/2019 2:13pm Height 70 inches 5'10" Weight 270.00 lb Heart Rate 81 /min BP Systolic 120 mmHg BP Diastolic 62 mmHg Respiratory Rate 16 /min Body Temperature 97.7 F Pain Level 5 BMI (Body Mass Index) 38.7 kg/m2 Results Description No Information Available Procedures Date Code Description Status 07/16/2019 79872 Arthroscopy Shoulder,W/Rotator Cuff Repair Completed 07/16/2019 38835 Arthroscopy Shoulder,W/Rotator Cuff Repair Completed 07/16/2019 34411 Arthroscopy Shoulder,W/Rotator Cuff Repair Completed 07/16/2019 30644 Arthroscopy,Shoulder Decompression Of Subacromial Space Completed W/Acromio 07/16/2019 08192 Arthroscopy,Shoulder Decompression Of Subacromial Space Completed W/Acromio 07/16/2019 93885 Arthroscopy,Shoulder Decompression Of Subacromial Space Completed W/Acromio 05/20/2019 98103 Inject/Drain Joint/Bursa Major W/O US Completed Medical Devices Description No Information Available Encounters Type Date Location Provider Dx Diagnosis Office Visit 07/11/2019 Pulmonology And Tamiko Maldonado, G47.37 Central sleep 8:15a [facility], GRAB JACK MAN-BC apnea in Intellectual Property Lawyer conditions classified elsewhere G47.33 Obstructive sleep apnea (adult) (pediatric) G47.14 Hypersomnia due to medical condition Office Visit 06/10/2019 2:30p Guero Stallings75.41 Impingement at Donal MARKS syndrome of right shoulder M75.21 Bicipital tendinitis, right shoulder Office Visit 05/20/2019 10:30a Stewart Stallings.[place] Impingement at Donal MARKS syndrome of right shoulder S46.111D Strain of musc/fasc/tend long hd bicep, right arm, subs Office Visit 04/10/2019 8:15a Stewart Stallings.41 Impingement at Donal MARKS syndrome of right shoulder S46.111D Strain of musc/fasc/tend long hd bicep, right arm, subs Assessments Date Code Description Provider 08/29/2019 M75.111 Incomplete rotator cuff tear or Tariq Maddox MD rupture of right shoulder, not specified as traumatic 08/29/2019 M75.41 Impingement syndrome of right Tariq Maddox MD shoulder 07/31/2019 M75.111 Incomplete rotator cuff tear or Tariq Maddox MD rupture of right shoulder, not specified as traumatic 07/31/2019 M75.41 Impingement syndrome of right Tariq Maddox MD shoulder 07/31/2019 S43.431A Superior glenoid labrum lesion of Tariq Maddox MD right shoulder, initial encounter 07/31/2019 Z47.89 Encounter for other orthopedic Tariq Maddox MD aftercare 07/16/2019 S43.431A Superior glenoid labrum lesion of [...] Tamiko Maldonado DNP, RN , classified elsewhere [facility] 07/11/2019 G47.33 Obstructive sleep apnea (adult) Tamiko Maldonado DNP, RN, (pediatric) [facility] 07/11/2019 G47.14 Hypersomnia due to medical Tamiko Maldonado DNP, RN, condition [facility] 07/10/2019 M75.41 Impingement syndrome of right Tariq [...] at C6-C7 BAHMAN Guerra level with radiculopathy Plan of Treatment Future Appointment(s):10/21/2019 8:00 am - Al Marrero MD at [facility] at Gzcppp0309/05/2019 11:30 am - Vance Hernandez MD at [facility]09/09/2019 9:30 am - Tamiko Maldonado DNP, RN, GRAB JACK MAN- BC at [facility]12/01/2019 1:30 pm - Vance Hernandez MD at [facility]08/29/2019 - Tariq Maddox MDM75.111 Incomplete rotator cuff tear or rupture of right shoulder, not specified as traumaticFollow up:Follow up: 6 weeks pkylmpdC13.41 Impingement syndrome of right shoulder Functional Status Description No Information Available Mental Status Description No Information Available Referrals Refer to Dr Reason for Referral Status Appt Date Len Bo MD Sent [address] [place] [address] [phone]
--- OUTSIDE RECORDS SUMMARY | 2019-09-16 15:55 | XMS REPORT | Continuity of Care Document ---
:1970 External Reference #:[id number] Author Name Tariq Maddox MD (transmitted by agent of provider Lorenza Fletcher) Address [address] [facility] 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 Onset: 09/08/2014 myelopathy Obstructive sleep apnea of adult Tamiko Maldonado DNP, RN, BOOMBOAT OPERATOR-BC Onset: 07/2011 Shift worker Tamiko Maldonado DNP RN, BOOMBOAT OPERATOR-BC Onset: 10/07/2014 Note: second shift Central sleep apnea syndrome Tamiko Maldonado DNP RN, Onset: 07/18/2016 BOOMBOAT OPERATOR-BC Degeneration of lumbar Akshat Alfaro M.D. Onset: [...] 200mg Tablets if needed as CHULA, RN, BOOMBOAT OPERATOR-BC directed Hydrocodone 1 tab by mouth 28tabs [...] Back Pain Losartan Potassium 1 tablet daily HalethorpeEfrain vickothy 25mg S., PA Tablets Gabapentin 1 [...] Available Procedures Date Code Description Status 07/16/2019 92262 Arthroscopy Shoulder,W/Rotator Cuff Repair Completed 07/16/2019 93993 Arthroscopy Shoulder,W/Rotator Cuff Repair Completed 07/16/2019 65144 Arthroscopy Shoulder,W/Rotator Cuff Repair Completed 07/16/2019 56230 Arthroscopy,Shoulder Decompression Of Subacromial Space Completed W/Acromio 07/16/2019 70806 Arthroscopy,Shoulder Decompression Of Subacromial Space Completed W/Acromio 07/16/2019 98930 Arthroscopy,Shoulder Decompression Of Subacromial Space Completed W/Acromio 05/20/2019 73469 Inject/Drain Joint/Bursa Major W/O US Completed Medical Devices Description No Information Available Encounters Type Date Location Provider Dx Diagnosis Office Visit 07/11/2019 Pulmonology And Tamiko Maldonado, G47.37 Central sleep 8:15a [facility], BOOMBOAT OPERATOR-BC apnea in Autotransfusionist conditions classified elsewhere G47.33 Obstructive sleep apnea [...] Tamiko Maldonado DNP, RN , classified elsewhere [facility] 07/11/2019 G47.33 Obstructive sleep apnea (adult) Tamiko Maldonado DNP, RN, (pediatric) [facility] 07/11/2019 G47.14 Hypersomnia due to medical Tamiko Maldonado DNP, RN, condition [facility] 07/10/2019 M75.41 Impingement syndrome of right [...] aftercare 04/10/2019 M75.41 Impingement syndrome of right aTriq Maddox MD shoulder 04/10/2019 S46.111D Strain of muscle, fascia and tendon Tariq Maddox MD of long head of biceps, right arm, subsequent encounter 02/28/2019 M50.123 Cervical disc disorder at C6-C7 BAHMAN Guerra level with radiculopathy Plan of Treatment Future Appointment(s):10/21/2019 8:00 am - Al Marrero MD at [facility] at Hbuunv9309/05/2019 11:30 am - Vance Hernandez MD at [facility]/09/2019 9:30 am - Tamiko Maldonado DNP, RN, BOOMBOAT OPERATOR- BC at [facility]/01/2019 1:30 pm - Vance Hernandez MD at [facility]08/29/2019 - Tariq Maddox MDM75.111 Incomplete rotator cuff tear or rupture of right shoulder, not specified as traumaticFollow up:Follow up: 6 weeks qwnygxsX54.41 Impingement syndrome of right shoulder Functional Status Description No Information Available Mental Status Description No Information Available Referrals Refer to Dr Reason for Referral Status Appt Date Len Bo MD Sent [address] [place] [id number] [phone]
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
--- OUTSIDE RECORDS SUMMARY | 2019-09-16 15:55 | XMS REPORT | Continuity of Care Document ---
:1970 External Reference #:[id number] Author Name Nubia Ross MD Address [address] [place] [address] Care Team Providers Name Role Phone HCP given Care Team Information Custodial Worker Unavailable Daquan Mccarthy MD - Urology Care Team Information Custodial Worker [phone] Vance Hernanedz Md - Care Team Information Custodial Worker [phone] Neurological Surgery Problems Active Problems Provider Date [...] 12 years 1-2 ppd Smoking Status Reviewed: 08/19/19 Former Cigarette Smoker quit in 1997 smoked 12 years 1-2 ppd Tobacco Use Start: Unknown End: Patient is a former Unknown smoker Exercise Does not exercise but at work does Type/Frequency 27,000 steps a day Allergies, Adverse Reactions, Alerts Description No Known Drug Allergies Medications Active Medications SIG Qnty Indications Ordering Date Provider Colace one tablet twice 60caps K59.00 Nubia Ross 08/19/2019 100mg Capsules daily, in morning MD Godwin and at bedtime as needed for constipation Hydrocodone-Acetamin 1 tablet by mouth 90tabs N20.2 Nubia Ross 2019 ophen every 4-6 hours as MD Godwin 7.5-325mg needed for pain, rx Tablets for 1--20 Lidoderm one patch to 30units M62.830 Nubia Ross 08/19/2019 5% Patches affected area for MD Godwin up to 12 hours daily as needed Diclofenac Epolamine 1 patch to affected 30units M54.5 Nubia Ross 08/19 area every day as MD Godwin 1.3% Patches needed for pain. Do not take celebrex or other NSAIDs with this patch. Methocarbamol Unknown 08/18/2019 500mg Tablets Gabapentin take one capsule by 90caps M79.672 Nubia Ross 05/03/2019 400mg mouth three times a MD Godwin Capsules day Celecoxib 1 tab once a day 90caps Nubia Ross 02/07/2019 200mg for back pain MD Godwin Capsules Losartan Potassium 1 tablet daily for 90tabs I10 Silco, 01/20/2019 high blood pressure Shannan Hernandez 25mg Tablets Hydrocodone-Acetamin 1 every 4-6 hours 60tabs co, 11/07/2018 ophen for pain Shannan Hernandez 7.5-325mg Tablets Meclizine HCL take 1 tablet by 90tabs H81.11 Unknown 10/03/2017 25mg mouth every 8 hours Tablets as needed dizziness Levothyroxine Sodium 1 every day 20 90tabs Silco, 10/20/2015 minutes before Shannan Hernandez 25mcg Tablets breakfast Atorvastatin Calcium take 1 tablet daily 90tabs E78.0 Nubia Ross 2014 MD Godwin 20mg Tablets History Medications Hydrocodone-Acetaminophen Unknown 08/18/2019 - 5-325mg Tablets 08/19/2019 Gabapentin take one 90caps M79.67 Silcoff, 04/21/2019 - 100mg Capsules capsule by 2 Shannan Hernandez 05/03/2019 mouth three times a day for foot pain and numbness Medications Administered in Office Medication SIG Qnty Indications Ordering Provider Date Toradol 15MG. Lis Murphy P.AZe 04/26/2017 Injection SC/Im Injections Mildred Cartagena 04/26/2017 Injection Immunizations CPT Code Status Date Vaccine Reaction Lot # U-Flu Given 04/18/2019 Influenza,Unspecified at drug store U-Flu Given 04/04/2018 Influenza,Unspecified [id number] Given 06/19/2017 Influenza Virus Vaccine, [id number] Quadrivalent, Split, Preservative Free [id number] Given 12/04/2016 Adacel or Boostrix, TDaP [id number] Vital Signs Date Vital Result Comment 08/19/2019 8:37am BP Systolic 124 mmHg BP Diastolic 70 mmHg Weight 272.00 lb 07/10/2019 3:42pm BP Systolic 132 mmHg BP Diastolic 84 mmHg Weight 272.00 lb Results Test Acquired Date Facility Test Result H/L Range Note CBC Auto 08/18/2019 [facility] White Blood 7.0 10^3/uL Normal 3.5- 10.8 Diff [phone] Count Red Blood Count 4.91 10^6/uL Normal 4.18-5.48 Hemoglobin 15.2 g/dL Normal 14.0-18.0 Hematocrit 43 % Normal 42-52 Mean Corpuscular Volume 88 fL Normal 80-94 Mean Corpuscular Hemoglobin 31 pg Normal 27-31 Mean Corpuscular HGB Conc 35 g/dL Normal 31-36 Red Cell Distribution Width 15 % Normal 10-15 Platelet Count 177 10^3/uL Normal 150-450 Mean Platelet Volume 7.0 fL Low 7.4-10.4 Abs Neutrophils 5.1 10^3/uL Normal 1.5-7.7 Abs Lymphocytes 1.1 10^3/uL Normal 1.0-4.8 Abs Monocytes 0.6 10^3/uL Normal 0-0.8 Abs Eosinophils 0.1 10^3/uL Normal 0-0.6 Abs Basophils 0.1 10^3/uL Normal 0-0.2 Abs Nucleated RBC 0.0 10^3/uL Granulocyte % 72.6 % Lymphocyte % 15.9 % Monocyte % 8.8 % Eosinophil % 1.9 % Basophil % 0.8 % Nucleated Red Blood Cells % 0.2 Comp Metabolic Panel 08/18/2019 [facility] Sodium 139 mmol/L Normal 135-145 [phone] Potassium 4.5 mmol/L Normal 3.5-5.0 Chloride 104 mmol/L Normal 101-111 Co2 Carbon Dioxide 27 mmol/L Normal 22-32 Anion Gap 8 mmol/L Normal 2-11 Glucose 126 mg/dL High 70-100 Blood Urea Nitrogen 17 mg/dL Normal 6-24 Creatinine 0.90 mg/dL Normal 0.67-1.17 BUN/Creatinine Ratio 18.9 Normal 8-20 Calcium 10.1 mg/dL Normal 8.6-10.3 Total Protein 7.1 g/dL Normal 6.4-8.9 Albumin 4.4 g/dL Normal 3.2-5.2 Globulin 2.7 g/dL Normal 2-4 Albumin/Globulin Ratio 1.6 Normal 1-3 Total Bilirubin 0.80 mg/dL Normal 0.2-1.0 Alkaline Phosphatase 105 U/L High 34-104 Alt 55 U/L High 7-52 Ast 26 U/L Normal 13-39 Egfr Non- 89.0 >60 Egfr 107.6 >60 1 Laboratory test finding 08/18/2019 [facility] Lipase 10 U/L Low 11.0- 82.0 [phone] C Reactive Protein 4.81 mg/L Normal <8.01 Lactic Acid 2.4 mmol/L Critical high 0.5-2.0 2 Urinalysis Profile 08/18/2019 [facility] Urine Color Yellow [phone] Urine Appearance Cloudy Urine Specific [place] 1.021 Normal 1.010-1.030 Urine pH 6.0 Normal 5-9 Urine Urobilinogen Negative Negative Urine Ketones Negative Negative Urine Protein 1+(30 mg/dL) Abnormal Negative Urine Leukocytes Negative Negative Urine Blood Negative Negative Urine Nitrite Negative Negative Urine Bilirubin Negative Negative Urine Glucose Negative Negative Urine White Blood Cell Trace(0-5/hpf) Absent Urine Red Blood Cell Absent Absent Urine Bacteria Absent Absent Urine Culture And 08/18/2019 [facility] Urine Culture SEE RESULT BELOW 3 Sensitivities [phone] Lipid Profile 07/11/2019 [facility] Triglycerides 111 mg/dL 4 (Trig/Chol/HDL) [phone] Cholesterol 137 mg/dL 5 HDL Cholesterol 38.9 mg/dL 6 LDL Cholesterol 76 mg/dL 7 CBC Auto Diff 07/11/2019 [facility] White Blood 7.3 10^3/uL Normal 3.5-10.8 [phone] Count Red Blood Count 4.99 10^6/uL Normal [...] Cells % 0.0 Comp Metabolic Panel 07/11/2019 [facility] Sodium 140 mmol/L Normal 135-145 [phone] Potassium 4.1 mmol/L Normal 3.5-5.0 Chloride 104 [...] Egfr Non- 90.1 >60 Egfr 109.0 >60 8 Laboratory test 07/11/2019 [facility] TSH (Thyroid 3.31 mcIU/mL Normal 0.34-5.60 finding [phone] Stim Horm) Ua Inhouse 07/10/2019 In House Ua Glucose - 9 Ua Bilirubin - Ua Ketones - Ua Specific [place] 1.030 Ua Blood - Ua PH 5.0 Ua Protein - Ua Urobilinogen - Ua Nitrite - Ua Leukocytes - Laboratory test 04/22/2019 [facility] D Dimer < 200 Normal Less 10 finding [phone] Quantitative ng/mL Than 230 Laboratory test 04/21/2019 In House Glucose 102 finding Quantitative Hemoglobin A1c 5.0 1 Because ethnic data is not always [...] 5 Kidney failure <15 (or dialysis) 2 Critical Result LACT:2.4 Called to TRINI at: 12:17:15 by:[id number] Read back by:TRINI HARRIS Severe Sepsis and Septic Shock Management Bundle Measure requires all lactic acids initially measuring >2.0 mmol/L be repeated. 3 SEE RESULT BELOW Name: MAURICIO DUGGAN : [address]: Jose Elias Daniels MD Acct: [id number] Unit: [id number] AGE: 49 Location: ED Re08/18/19 SEX: M Status: DEP ER SPEC: [id number] GREGORY: 08/18/19 [facility] DR: Jose Elias Daniels MD REQ: [id number] RECD: 08/18/19 STATUS: JOSE FRANCISCO GRAVES DR: [facility] Lis RUGGIERO _ SOURCE: URINE SPDESC: ORDERED: Urine Culture Procedure Result Reported Site Urine Culture Final 08/19/19- 1000 ML No Growth (<1,000 CFU/mL) * ML - Main Lab . END OF REPORT DEPARTMENT OF PATHOLOGY, [address] [place] [address] Zeferino Antony M.D. Director [facility] # [id number] 4 Desirable: <150 Borderline High: 150-199 High: 200-499 Very High: >500 5 Desirable: <200 Borderline High: 200-239 High: >239 6 Low: <40 Desirable: 40-60 High: >60 7 Desirable: <100 Near Optimal: 100-129 Borderline High: 130-159 High: 160-189 Very High: >189 8 Because ethnic data is not always readily [...] 15-29 5 Kidney failure <15 (or dialysis) 9 void, clear, gold 10 Please note: The following may produce a false positive D Dimer test: - Rheumatoid factor greater than 60 IU/ml - Plasma hemoglobin greater than 0.05 gm/dl - Bilirubin greater than 50 mg/dl - Lipids greater than 1000 mg/dl - FDP greater than 20 ug/ml Procedures Date Code Description Status 07/10/2019 52086 Electrocardiogram Complete Completed 11/29/2015 06731238 Colonoscopy Completed Medical Devices Description No Information Available Encounters Type Date Location Provider Dx Diagnosis Office Visit 08/19/2019 Main Office Nubia Ross MD I10 Essential ( primary) 8:30a hypertension N20.2 Calculus of kidney with calculus of ureter M62.830 Muscle spasm of back K59.00 Constipation, unspecified M54.5 Low back pain M54.12 Radiculopathy, cervical region Office Visit 07/10/2019 3:40p Main Office Lis Murphy M75.41 Impingement P.A. syndrome of right shoulder M43.22 Fusion of spine, cervical region I10 Essential (primary) hypertension Z01.818 Encounter for other preprocedural examination G47.33 Obstructive sleep apnea (adult) (pediatric) E66.9 Obesity, unspecified E78.00 Pure hypercholesterolemia, unspecified E03.9 Hypothyroidism, unspecified Office Visit 04/21/2019 3:20p Main Office Lis Murphy M79.671 Pain in right P.A. foot M79.672 Pain in left foot M79.605 Pain in left leg R73.01 Impaired fasting glucose Assessments Date Code Description Provider 08/19/2019 I10 Essential (primary) hypertension Nubia Ross MD 08/19/2019 N20.2 Calculus of kidney with calculus of ureter Nubia Ross MD 08/19/2019 M62.830 Muscle spasm of back Nubia Ross MD 08/19/2019 K59.00 Constipation, unspecified Nubia Ross MD 08/19/2019 M54.5 Low back pain Nubia Ross MD 08/19/2019 M54.12 Radiculopathy, cervical region Nubia Ross MD 07/10/2019 M75.41 Impingement syndrome of right shoulder Lis Murphy, P.A. 07/10/2019 M43.22 Fusion of spine, cervical region Lis Gordonle, P.A. 07/10/2019 I10 Essential (primary) hypertension Lis Gordonle, P.A. 07/10/2019 Z01.818 Encounter for other preprocedural examination Lis Gordonle, P.A. 07/10/2019 G47.33 Obstructive sleep apnea (adult) (pediatric) Lis Glendale , P.A. 07/10/2019 E66.9 Obesity, unspecified Lis Glendale, P.A. 07/10/2019 E78.00 Pure hypercholesterolemia, unspecified Lis Glendale, P.A. 07/10/2019 E03.9 Hypothyroidism, unspecified Lis Glendale, P.A. 04/21/2019 M79.671 Pain in right foot Lis Murphy, P.A. 04/21/2019 M79.672 Pain in left foot Lis Murphy, P.A. 04/21/2019 M79.605 Pain in left leg Lis Murphy, P.A. 04/21/2019 R73.01 Impaired fasting glucose Mildred Cartagena Plan of Treatment Future Appointment(s):10/14/2019 8:30 am - Nubia Ross MD at [id number] - Mildred CartagenaM79.671 Pain in right footComments:102M79.672 [...]
[2019-09-16 16:02] VITALS: BP 136/74
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
== END 2019-09-16 18:01 | disposition home or self-care (01) ==
LOC: UCCORT 15:42
DX: S16.1XXA Strain of muscle, fascia and tendon at neck level, initial encounter (principal); I10 Essential (primary) hypertension; E07.9 Disorder of thyroid, unspecified; V89.2XXA Person injured in unspecified motor-vehicle accident, traffic, initial encounter; Y92.9 Unspecified place or not applicable; Z98.890 Other specified postprocedural states; Z87.891 Personal history of nicotine dependence
CPT/HCPCS: 72125; 99211; G0463

== ENCOUNTER 2020-02-05 08:57 | Inpatient (IN) ==
[~2020-02-05 08:57] MED LIST changes: +Buffered Lidocaine 1% SYRIN 1 ml INTRADERM ONE; -Buffered Lidocaine 1% SYRIN* 1 ML/SYRINGE INTRADERM ONE; +Famotidine IV 10 MG/ML 2 ml VIAL (20 mg) IV ONE; -Famotidine IV* 10 MG/ML 2 ML (20 mg) IV ONE; -Lactated Ringers 1000 ML Bag* 1,000 ML IV SCH; +Lactated Ringers 1000 ml BAG 1,000 ML IV SCH
[2020-02-05] MEDS ORDERED: Buffered Lidocaine 1% SYRIN 1 ml INTRADERM ONE (09:10)
[2020-02-05] MEDS ORDERED: ceFAZolin 2 GM PREMIX in ORs 2 GM/50 ML BAG ONE (09:10)
[2020-02-05] MEDS ORDERED: Famotidine IV 10 MG/ML 2 ml VIAL (20 mg) ONE (09:10)
[2020-02-05] MEDS ORDERED: Propofol 10 MG/ML 20 ML BTL ONE ×2 (09:22→12:31)
[2020-02-05] MEDS ORDERED: Ketamine HCL 50 mg/ml 10 ml VIAL (500 MG) ONE (09:22)
[2020-02-05] MEDS ORDERED: Remifentanil 2 MG VIAL ONE ×2 (09:22→13:45)
[2020-02-05] MEDS ORDERED: Bupivacaine 0.25% EPI 200,000 30 ML SDV ONE (10:13)
[2020-02-05] MEDS ORDERED: Bacitracin INJECTION 50,000 UNITS ONE (10:13)
[2020-02-05] MEDS ORDERED: Midazolam 2 mg/2 ml VIAL 1 mg/ml 2 ml VIAL (2 mg) ONE (10:21)
[2020-02-05] MEDS ORDERED: fentaNYL 100 mcg/2 ml 50 MCG/ML VIAL ONE ×3 (10:21→15:33)
[2020-02-05] MEDS ORDERED: Succinylcholine 200 mg VIAL 20 mg/ml 10 ml VIAL (200 mg) ONE (10:21)
[2020-02-05] MEDS ORDERED: DiMENhydriNATE IV 50 mg/ml 1 ml VIAL IV PUSH PRN (12:01)
[2020-02-05] MEDS ORDERED: Ondansetron 4 mg VIAL 2 MG/ML 2 ml VIAL IV PRN ×2 (12:01→14:56)
[2020-02-05] MEDS ORDERED: Naloxone 0.4 mg VIAL 0.4 mg/ml 1 ml VIAL IV PRN (12:01)
[2020-02-05] MEDS ORDERED: Acetaminophen IV 1 GM/100ML 100 ML ONE (12:09)
[2020-02-05] MEDS ORDERED: EPHEDrine (Pressors) 50 MG/ML VIAL ONE (12:31)
[2020-02-05] MEDS ORDERED: Glycopyrrolate IV 0.2 MG/ML 1 ML VIAL ONE (12:31)
[2020-02-05] MEDS ORDERED: Ondansetron 4 mg VIAL 2 MG/ML 2 ml VIAL ONE (12:31)
[2020-02-05] MEDS ORDERED: Phenylephrine 40 mcg/mL 10mL (400mcg) SYRINGE ONE (14:12)
[2020-02-05] MEDS ORDERED: HYDROmorphone 1 MG/1 ML SYRINGE ONE (14:12)
[2020-02-05] MEDS: fentaNYL 100 mcg/2 ml 50 MCG/ML VIAL IV PRN ×4 (15:24→16:20)
[2020-02-05] MEDS ORDERED: hydrALAZINE 20 mg/ml 1 ML Vial IV IV SLOW PU PRN (15:52)
[2020-02-05] MEDS ORDERED: Labetalol IV 5 MG/ML 20 ml VIAL ONE (16:02)
[2020-02-05] MEDS: Labetalol IV 5 MG/ML 20 ml VIAL IV PUSH PRN ×2 (16:07→16:19)
[2020-02-05] MEDS: Senna TAB 8.6 mg TAB PO SCH (21:42)
[2020-02-05] MEDS: oxyCODONE/Acetamin 5/325 mg TAB PO PRN (21:58)
[2020-02-06] MEDS: oxyCODONE/Acetamin 5/325 mg TAB PO PRN ×2 (03:46→14:00)
[2020-02-06] MEDS: Magnesium Hydroxide LIQ 30 ML UDC PO PRN (07:59)
[2020-02-06] MEDS: Senna TAB 8.6 mg TAB PO SCH (21:19)
[2020-02-07] MEDS: oxyCODONE/Acetamin 5/325 mg TAB PO PRN ×2 (03:17→21:45)
[2020-02-07] MEDS: Magnesium Hydroxide LIQ 30 ML UDC PO PRN (08:38)
[2020-02-07 13:37] LABS: ABS Basophils 0.1 10^3/ul (0-0.2); ABS Eosinophils 0.1 10^3/ul (0-0.6); ABS Lymphocytes 1.5 10^3/ul (1.0-4.8); ABS Monocytes 1.2 10^3/ul (0-0.8); Eosinophil % 1.4 %; Hematocrit 40 % (42-52); Hemoglobin 13.7 g/dL (14.0-18.0); Lymphocyte % 15.7 %; Mean Corpuscular HGB Conc 35 g/dL (31-36); Mean Corpuscular Hemoglobin 30 pg (27-31); Mean Corpuscular Volume 88 fL (80-94); Mean Platelet Volume 7.1 fL (7.4-10.4); Platelet Count 194 10^3/uL (150-450); Red Blood Count 4.55 10^6 /uL (4.18-5.48); Red Cell Distribution Width 15 % (10-15); White Blood Count 9.6 10^3/uL (3.5-10.8)
[2020-02-07 13:51] LABS: BUN/Creatinine Ratio 18.1 (8-20); Calcium 8.9 mg/dL (8.6-10.3); EGFR African American 102.4 (>60); EGFR Non-African American 84.6 (>60); Magnesium 1.7 mg/dL (1.9-2.7); Potassium 3.8 mmol/L (3.5-5.0)
[2020-02-07] MEDS ORDERED: Heparin 5000 UNITS/ML VIAL(*) 1 ml vial SUBCUT SCH (14:00)
[2020-02-07] MEDS ORDERED: Magnesium Sulfate 2 gm BAG 2 GM/50 ML BAG IVPB ONE (17:37)
[2020-02-07] MEDS: Senna TAB 8.6 mg TAB PO SCH (21:44)
[2020-02-08 04:39] LABS: ABS Basophils 0.1 10^3/ul (0-0.2); ABS Eosinophils 0.2 10^3/ul (0-0.6); ABS Lymphocytes 1.3 10^3/ul (1.0-4.8); ABS Monocytes 1.1 10^3/ul (0-0.8); Eosinophil % 1.7 %; Hematocrit 37 % (42-52); Hemoglobin 12.9 g/dL (14.0-18.0); Lymphocyte % 13.5 %; Mean Corpuscular HGB Conc 35 g/dL (31-36); Mean Corpuscular Hemoglobin 31 pg (27-31); Mean Corpuscular Volume 87 fL (80-94); Mean Platelet Volume 7.3 fL (7.4-10.4); Nucleated Red Blood Cells % 0.1; Platelet Count 175 10^3/uL (150-450); Red Blood Count 4.22 10^6 /uL (4.18-5.48); Red Cell Distribution Width 16 % (10-15); White Blood Count 9.2 10^3/uL (3.5-10.8)
[2020-02-08 04:57] LABS: BUN/Creatinine Ratio 19.2 (8-20); Calcium 8.8 mg/dL (8.6-10.3); EGFR Non-African American 104.9 (>60); Potassium 3.8 mmol/L (3.5-5.0)
[2020-02-08] MEDS: oxyCODONE/Acetamin 5/325 mg TAB PO PRN ×2 (10:11→18:12)
[2020-02-08] MEDS ORDERED: Polyethylene Glycol 3350 17 GM PACKET PO PRN (13:24)
[2020-02-08] MEDS: Lactulose 30 ml UDC PO SCH ×2 (14:37→21:47)
[2020-02-08] MEDS: Senna TAB 8.6 mg TAB PO SCH (21:47)
[2020-02-09] MEDS: oxyCODONE/Acetamin 5/325 mg TAB PO PRN ×3 (02:05→23:20)
[2020-02-09] MEDS: Lactulose 30 ml UDC PO SCH ×3 (09:31→23:21)
[2020-02-09] MEDS ORDERED: Methylnaltrexone SQ (NF) 12 MG/0.6 ML VIAL SUBCUT ONE ×2 (11:34→14:30)
[2020-02-09] MEDS: Magnesium Hydroxide LIQ 30 ML UDC PO PRN (12:55)
[2020-02-09] MEDS: Senna TAB 8.6 mg TAB PO SCH (23:21)
[2020-02-10] MEDS: oxyCODONE/Acetamin 5/325 mg TAB PO PRN ×2 (03:50→12:28)
[2020-02-10] MEDS: Lactulose 30 ml UDC PO SCH (09:15)
[2020-02-10 11:27] VITALS: BP 125/57
== END 2020-02-10 13:10 | disposition home or self-care (01) | DRG 460 ==
LOC: AA 08:57 → SSU 14:56
PROVIDERS: ADMIT Neurological Surgery; ATTEND Neurological Surgery